=== PATIENT | female | born 1940 | race Caucasian/White ===

== ENCOUNTER 2016-07-03 08:00 | Outpatient (CLI) | payer MEDICARE, MEDICAID | END 2016-07-03 08:01 | disposition home or self-care (01) | DX: L02.219 Cutaneous abscess of trunk, unspecified (principal) ==

== ENCOUNTER 2016-08-06 20:51 | Outpatient (CLI) | payer MEDICARE, MEDICAID | END 2016-08-06 20:52 | disposition EMS.NT | DX: M25.562 Pain in left knee (principal) ==

== ENCOUNTER 2016-08-07 13:56 | Outpatient (CLI) | payer MEDICARE, MEDICAID | END 2016-08-07 13:57 | disposition EMS.NT | DX: Z03.89 Encounter for observation for other suspected diseases and conditions ruled out (principal) ==

== ENCOUNTER 2016-08-23 12:42 | Outpatient (CLI) | payer MEDICARE, MEDICAID | END 2016-08-23 12:43 | disposition critical access hospital (66) | DX: M79.662 Pain in left lower leg (principal); R07.9 Chest pain, unspecified; W10.8XXA Fall (on) (from) other stairs and steps, initial encounter; Y93.01 Activity, walking, marching and hiking; Y92.008 Other place in unspecified non-institutional (private) residence as the place of occurrence of the external cause | CPT/HCPCS: A0425; A0429 ==

== ENCOUNTER 2016-08-23 12:57 | Emergency (ER) | payer MEDICARE, MEDICAID ==
--- NOTE | 2016-08-23 13:17 | ED Physician Documentation ---
PD HPI Fall - Stated complaint Stated Complaint: GLF - Chief complaint Chief Complaint: Ext Problem - History obtained from History obtained from: Patient, EMS - History of Present Illness Mechanism of injury: Slipped (on wet floor) Fall distance: Standing position Where injury occurred: Home Timing - onset: Today Injury(ies) location: Chest (L chest wall), Left Lower Extremity (L knee/tibia) Pain level max: 8 Pain level now: 6 Quality of pain: Pain, Throbbing, Aching, Dull Associated symptoms: No: LOC, AMS, Amnesia, Seizures, Ear drainage, Nasal drainage, Neck pain, Weakness, Paresthesias, Dyspnea, Nausea / vomiting, Hematemesis, Abdominal distension Symptoms improve with: Rest Worsens with: Movement, Palpation Contributing factors: No: Anticoagulated, Intoxicated Similar symptoms before: Has not had sx before Recently seen: Not recently seen Review of Systems Ten Systems: 10 systems reviewed and negative Constitutional: denies: Fever, Chills Ears: denies: Ear pain Nose: denies: Rhinorrhea / runny nose, Congestion Throat: denies: Sore throat Cardiac: denies: Palpitations Respiratory: denies: Cough GI: denies: Abdominal Pain, Nausea, Vomiting, Diarrhea Skin: denies: Rash Musculoskeletal: denies: Neck pain, Back pain Neurologic: denies: Focal weakness, Numbness, Headache, Head injury, LOC PD PAST MEDICAL HISTORY - Past Medical History Past Medical History: Yes Cardiovascular: Atrial fibrillation (paroxysmal) GI: Chronic constipation, Hemorrhoids Psych: Schizophrenia - Past Surgical History Past Surgical History: Yes - Present Medications Home Medications: Ambulatory Orders Medication Instructions Recorded Confirmed Ranitidine HCl 150 mg PO BID 08/14/12 08/23/16 Docusate Sodium [Stool Softener] 250 mg PO DAILY 09/11/12 08/23/16 Ascorbate Calcium [Vitamin C] 1,000 mg PO BID 09/25/12 08/23/16 Ferrous Sulfate [Iron] 325 mg PO TID 09/25/12 08/23/16 Multivitamin [Multivitamins] 1 each PO DAILY 09/25/12 08/23/16 Vitamin E 400 unit PO DAILY 09/25/12 08/23/16 Risperidone Microspheres 37.5 mg IM ONCE 11/20/12 08/23/16 [Risperdal Consta] Lactulose [Kristalose] 20 gm PO ONCE 06/25/13 08/23/16 Cholecalciferol (Vitamin D3) 2,000 unit PO DAILY 03/18/14 08/23/16 [Vitamin D3] Cyanocobalamin (Vitamin B-12) 0 mcg PO DAILY 03/18/14 08/23/16 [Vitamin B-12] Zinc 0 mg PO DAILY 03/18/14 08/23/16 Sulfamethoxazole/Trimethoprim 1 tab PO BID 03/20/16 08/23/16 [Bactrim Ds Tablet] - Allergies Allergies/Adverse Reactions: Allergies Allergy/AdvReac Type Severity Reaction Status Date / Time penicillin G Allergy Intermediate Rash Verified 08/23/16 13:00 strawberry [[place]] Allergy Intermediate Rash Verified 08/23/16 13:00 orange juice [[place] Juice] Allergy Mild Rash Verified 08/23/16 13:00 - Social History Does the pt smoke?: No Smoking Status: Never smoker Does the pt drink ETOH?: No Does the pt have substance abuse?: No - Immunizations Immunizations are current?: No Immunizations: TDAP >10years/unknown PD ED PE NORMAL - Vitals Vital signs reviewed: Yes - General General: Alert and oriented X 3, No acute distress - HEENT HEENT: Atraumatic, PERRL, Moist mucous membranes - Neck Neck: Supple, no meningeal sign - Cardiac Cardiac: Strong equal pulses, Other (irregular) - Respiratory Respiratory: No respiratory distress, Clear bilaterally, Other (mild TTP across the anterior chest wall, no ecchymosis or swelling.) - Abdomen Abdomen: Soft, Non tender, Non distended - Back Back: No spinal TTP - Derm Derm: Warm and dry, No rash - Extremities Extremities: Other (L LE - diffuse TTP about the L knee, most pronounced over the L tibial plateau and prox tibial shaft.) - Neuro Neuro: Alert and oriented X 3 - Psych Psych: Normal mood, Normal affect Results - Vitals Vitals: Vital Signs - 24 hr 08/23/16 08/23/16 12:57 16:17 Temperature 36.8 C Heart Rate 84 107 H Respiratory 18 28 H Rate Blood Pressure 103/75 118/83 H O2 Saturation 98 96 Oxygen O2 Source Room air - EKG (time done) 1310 Rate: Rate (enter#) (115) Rhythm: Atrial fibrillation [place]: Normal QRS: Normal Ischemia: Normal ST segments - Labs Labs: Laboratory Tests 08/23/16 08/23/16 13:45 13:45 WBC 8.3 RBC 4.64 Hgb 12.7 Hct 38.8 MCV 83.5 MCH 27.4 MCHC 32.8 RDW 14.0 Plt Count 242 MPV 8.0 Neut # 6.9 H Lymph # 0.7 L [place] # 0.7 Eos # 0.0 Baso # 0.0 Absolute Nucleated RBC 0.00 Nucleated RBCs 0.0 Sodium 138 Potassium 4.2 Chloride 102 Carbon Dioxide 30 Anion Gap 6.0 BUN 11 Creatinine 0.8 Estimated GFR (MDRD) 70 L Glucose 120 H Calcium 9.0 Total Bilirubin 0.2 AST 20 ALT 22 Alkaline Phosphatase 167 H Total Protein 6.9 Albumin 3.5 Globulin 3.4 Albumin/Globulin Ratio 1.0 Lipase 23 - Rads (name of study) L tib fib xray Radiology: Prelim report reviewed, EMP read contemporaneously, See rad report ( Proximal tibia fracture as separately described, associated with total knee prosthesis. Calcaneus fracture. Severe tarsometatarsal degenerative changes and other chronic findings.) L knee xray Radiology: Prelim report reviewed, EMP read contemporaneously, See rad report ( Acute fracture proximal tibia at the level of the prosthetic tibial component stem with slight impaction, but complete apposition. Possible associated fibular neck fracture.) cxr Radiology: Prelim report reviewed, EMP read contemporaneously, See rad report ( Elevation of left hemidiaphragm. Increased density in the left may be due to overlying soft tissue swelling or artifact. No other definite acute disease. ) PD MEDICAL DECISION MAKING - ED course Complexity details: reviewed results, re-evaluated patient, considered differential, d/w patient, d/w outside sales consultant ED course: 1355 - Dr. Hobson, ortho, and will review films. 1405 - Dr. Hobson recommends transfer to larger facility for joint reconstruction. 1410 - Call placed to [facility] for possible transfer 1650 - Dr. Guillaume (ortho at [facility] graciously accepts). Patient with a left knee periprosthetic fracture. Discussed with orthopedics here who recommends transfer to a larger facility. [facility] recommended [facility], Dr. Guillaume graciously accepts. Pain well controlled here. This document was made in part using voice recognition software. While efforts are made to proofread this document, sound alike and grammatical errors may occur. Patient also has intermittent atrial fibrillation, this is chronic for her, she did have a short episode of A. fib with RVR and was given Cardizem orally for this. Pt states she is not on blood thinners. Departure - Departure Disposition: 02 Transfer Acute Care Hosp Clinical Impression: [place]-prosthetic fracture of proximal tibia Atrial fibrillation Qualifiers: Atrial fibrillation type: unspecified Qualified Code(s): I48.91 - Unspecified atrial fibrillation Condition: Good
[2016-08-23] MEDS ORDERED: HYDROmorphone 1 MG/ML SYRINGE IVP STA ×2 (13:19→17:32)
[2016-08-23] MEDS ORDERED: HYDROmorphone 1 MG/ML SYRINGE ONE ×2 (13:25→17:40)
[2016-08-23 14:03] LABS: BASOPHILS % (AUTO) 0.4 %; EOSINOPHILS % (AUTO) 0.4 %; HCT - HEMATOCRIT 38.8 % (37.0-47.0); HGB - HEMOGLOBIN 12.7 g/dL (12.0-16.0); LYMPHOCYTES # (AUTO) 0.7 10^3/uL (1.5-3.5); LYMPHOCYTES % (AUTO) 7.9 %; MEAN CORPUSCULAR HEMOGLOBIN 27.4 pg (27.0-31.0); MEAN CORPUSCULAR HGB CONC 32.8 g/dL (32.0-36.0); MEAN CORPUSCULAR VOLUME 83.5 fL (81.0-99.0); MONOCYTES # (AUTO) 0.7 10^3/uL (0.0-1.0); NEUTROPHILS # (AUTO) 6.9 10^3/uL (1.5-6.6); NEUTROPHILS % (AUTO) 83.3 %; RED BLOOD COUNT 4.64 10^6/uL (4.20-5.40); UNCORRECTED WHITE BLOOD COUNT 8.3 x10^3/uL; WHITE BLOOD COUNT 8.3 x10^3/uL (4.8-10.8)
[2016-08-23 14:18] LABS: BILIRUBIN,TOTAL 0.2 mg/dL (0.2-1.0); CREATININE 0.8 mg/dL (0.4-1.0); POTASSIUM 4.2 mmol/L (3.5-5.0); TOTAL PROTEIN 6.9 g/dL (6.7-8.2)
--- NOTE | 2016-08-23 14:19 | XRAY Preliminary Report ---
Exam: XR Chest 1 View IMPRESSION: Elevation of left hemidiaphragm. Increased density in the left may be due to overlying so ft tissue swelling or artifact. No other definite acute disease. [facility] SITE ID: [id number]
--- NOTE | 2016-08-23 14:21 | XRAY Report ---
EXAM: CHEST RADIOGRAPHY EXAM DATE: 08/23/2016 01:56 PM. CLINICAL HISTORY: Chest pain s/p fall. COMPARISON: 08/25/2006. TECHNIQUE: 1 view. FINDINGS: Lungs/Pleura: Apparent elevation of left hemidiaphragm. Otherwise clear. No definite effusion or pneu mothorax. Mediastinum: Overall heart size upper limit of normal, probably unchanged. Upper lobe vessels not dis tended. Other: Scoliosis, degenerative changes, rotator cuff arthropathy. Increased density over left lateral chest wall appears related to soft tissues. IMPRESSION: Elevation of left hemidiaphragm. Increased density in the left may be due to overlying so ft tissue swelling or artifact. No other definite acute disease. [facility] Referring Provider Line: [phone] SITE ID: [id number]
--- NOTE | 2016-08-23 14:21 | XRAY Preliminary Report ---
Exam: XR Knee 2 View LT IMPRESSION: Acute fracture of proximal tibia at level of prosthetic tibial component stem with slight impaction, but complete apposition. Possible associated fibular neck fracture. [facility] SITE ID: [id number]
--- NOTE | 2016-08-23 14:24 | XRAY Report ---
EXAM: LEFT KNEE RADIOGRAPHY EXAM DATE: 08/23/2016 02:01 PM. CLINICAL HISTORY: Fall, L knee pain. COMPARISON: None. TECHNIQUE: 2 views. FINDINGS: Bones: Osteopenia. Transverse fracture of proximal tibia with slight impaction resulting in apex medi al angulation. Complete apposition. Probable nondisplaced fracture fibular neck. Otherwise unremarkab le. Joints: Total knee prosthesis in grossly anatomic alignment. Fracture is at the tip of the tibial com ponent stem. Soft Tissues: Unremarkable. IMPRESSION: Acute fracture of proximal tibia at level of prosthetic tibial component stem with slight impaction, but complete apposition. Possible associated fibular neck fracture. [facility] Referring Provider Line: [phone] SITE ID: [id number]
--- NOTE | 2016-08-23 14:25 | XRAY Preliminary Report ---
Exam: XR Tib/Fib LT IMPRESSION: 1. Proximal tibia fracture as separately described, associated with total knee prosthesis. 2. Calcaneus fracture. 3. Severe tarsometatarsal degenerative changes and other chronic findings. [facility] SITE ID: [id number]
--- NOTE | 2016-08-23 14:27 | XRAY Report ---
EXAM: LEFT TIBIA/FIBULA RADIOGRAPHY EXAM DATE: 08/23/2016 01:56 PM. CLINICAL HISTORY: Fall, L prox tibia pain. COMPARISON: None. TECHNIQUE: 2 views. FINDINGS: Bones: Osteopenia. See separate report for findings of nondisplaced proximal tibia fracture. Irregula rities in the calcaneus compatible with insufficiency fracture posteriorly. No other definite fractur e or bone lesion. Joints: Total knee prosthesis. Mortise difficult to evaluate, prominent degenerative changes in the a nkle. Severe degenerative changes throughout the tarsal metatarsal joints with possible erosions vers us subchondral cysts. Soft Tissues: Unremarkable. IMPRESSION: 1. Proximal tibia fracture as separately described, associated with total knee prosthesis. 2. Calcaneus fracture. 3. Severe tarsometatarsal degenerative changes and other chronic findings. [facility] Referring Provider Line: [phone] SITE ID: [id number]
[2016-08-23] MEDS ORDERED: diltiaZEM 30 MG TABLET PO STA (17:35)
[2016-08-23] MEDS ORDERED: diltiaZEM 30 MG TABLET PO ONE (17:39)
[2016-08-23 18:22] VITALS: BP 107/63
== END 2016-08-23 19:20 | disposition short-term general hospital (02) ==
LOC: EDUNIT# → ED 12:57
DX: S82.192A Other fracture of upper end of left tibia, initial encounter for closed fracture (principal); M97.12XA Periprosthetic fracture around internal prosthetic left knee joint, initial encounter; W01.0XXA Fall on same level from slipping, tripping and stumbling without subsequent striking against object, initial encounter; Y92.009 Unspecified place in unspecified non-institutional (private) residence as the place of occurrence of the external cause; Z96.652 Presence of left artificial knee joint; I48.2 Chronic atrial fibrillation
CPT/HCPCS: 36415; 71010; 73560; 73590; 80053; 83690; 85025; 93005; 93010; 96374; 96376; 99284; 99285; A9270; J1170

== ENCOUNTER 2016-08-23 19:21 | Outpatient (CLI) | payer MEDICARE, MEDICAID | END 2016-08-23 19:22 | disposition short-term general hospital (02) | DX: S82.102A Unspecified fracture of upper end of left tibia, initial encounter for closed fracture (principal); M97.12XA Periprosthetic fracture around internal prosthetic left knee joint, initial encounter; R07.89 Other chest pain; W01.0XXA Fall on same level from slipping, tripping and stumbling without subsequent striking against object, initial encounter; Y92.009 Unspecified place in unspecified non-institutional (private) residence as the place of occurrence of the external cause | CPT/HCPCS: A0170; A0425; A0426 ==

== ENCOUNTER 2016-09-06 12:14 | Outpatient (CLI) | payer MEDICARE, MEDICAID | END 2016-09-06 12:15 | disposition critical access hospital (66) | LOC: EMS 12:14 | PROVIDERS: ATTEND Surgery | DX: R06.02 Shortness of breath (principal) | CPT/HCPCS: A0425; A0429 ==

== ENCOUNTER 2016-09-06 12:19 | Emergency (ER) | payer MEDICARE, MEDICAID ==
[2016-09-06] MEDS ORDERED: diltiaZEM INJ 5 MG/ML VIAL IVP STA (12:55)
--- NOTE | 2016-09-06 12:59 | ED Physician Documentation ---
History of Present Illness - Stated complaint Stated Complaint: SOA - Chief complaint Chief Complaint: Cardiac - History obtained from History obtained from: Patient, EMS - History of Present Illness Timing: Today - Additonal information Additional information: 75 y/o female with a history of intermittent afib has been operated on 2 weeks ago at [place] for a fracture around a left knee prosthesis. She has been in [facility] for about one week now. She began to feel hot and muggy last night and today when she was trying to get up to get a shower she was dyspneic and light headed. Review of Systems Constitutional: reports: Fatigue, Sweats. denies: Fever, Chills Eyes: denies: Decreased vision Ears: denies: Ear pain Nose: denies: Congestion Throat: denies: Sore throat Cardiac: reports: Palpitations. denies: Chest pain / pressure Respiratory: reports: Dyspnea. denies: Cough GI: reports: Nausea. denies: Abdominal Pain, Vomiting : denies: Dysuria, Frequency Skin: denies: Rash Musculoskeletal: reports: Extremity pain, Extremity swelling, Joint swelling. denies: Neck pain, Back pain Neurologic: reports: Generalized weakness. denies: Focal weakness, Numbness PD PAST MEDICAL HISTORY - Past Medical History Past Medical History: Yes Cardiovascular: Atrial fibrillation GI: Chronic constipation, Hemorrhoids Psych: Schizophrenia Other Past Medical History: rectal prolapse, osteomyelitis of ankle and foot. - Past Surgical History Past Surgical History: Yes - Present Medications Home Medications: Ambulatory Orders Medication Instructions Recorded Confirmed Ranitidine HCl 150 mg PO BID 08/14/12 09/06/16 Docusate Sodium [Stool Softener] 250 mg PO BID 09/11/12 09/06/16 Ferrous Sulfate [Iron] 325 mg PO TID 09/25/12 09/06/16 Multivitamin [Multivitamins] 1 each PO DAILY 09/25/12 09/06/16 Vitamin E 400 unit PO DAILY 09/25/12 09/06/16 Risperidone Microspheres 37.5 mg IM ONCE 11/20/12 09/06/16 [Risperdal Consta] Lactulose [Kristalose] 20 gm PO PRN PRN MDD bid 06/25/13 09/06/16 Cholecalciferol (Vitamin D3) 2,000 unit PO DAILY 03/18/14 09/06/16 [Vitamin D3] Cyanocobalamin (Vitamin B-12) 1,000 mcg PO DAILY 03/18/14 09/06/16 [Vitamin B-12] Zinc 0 mg PO DAILY 03/18/14 09/06/16 Acetaminophen 1,000 mg PO Q8H 09/06/16 09/06/16 Apixaban [Eliquis] 5 mg PO BID 09/06/16 09/06/16 Ascorbic Acid [Vitamin C] 1,000 mg PO BID 09/06/16 09/06/16 Diltiazem HCl [Diltiazem ER] 180 mg PO DAILY 09/06/16 09/06/16 Doxycycline Hyclate 100 mg PO BID 09/06/16 09/06/16 Folic Acid 0.4 mg PO DAILY 09/06/16 09/06/16 Guaifenesin 100 mg PO DAILY 09/06/16 09/06/16 Levofloxacin [Levaquin] 500 mg PO DAILY #7 tablet 09/06/16 Metoprolol Tartrate 12.5 mg PO BID 09/06/16 09/06/16 Oxycodone HCl 5 mg PO PRN PRN MDD qid 09/06/16 09/06/16 Oxycodone HCl 10 mg PO Q4H PRN 09/06/16 09/06/16 Tramadol HCl 50 mg PO Q6H PRN 09/06/16 09/06/16 - Allergies Allergies/Adverse Reactions: Allergies Allergy/AdvReac Type Severity Reaction Status Date / Time penicillin G Allergy Intermediate Rash Verified 08/23/16 13:00 strawberry [[place]] Allergy Intermediate Rash Verified 08/23/16 13:00 orange juice [[place] Juice] Allergy Mild Rash Verified 08/23/16 13:00 - Social History Does the pt smoke?: No Smoking Status: Never smoker Does the pt drink ETOH?: No Does the pt have substance abuse?: No - Immunizations Immunizations are current?: No Immunizations: TDAP >10years/unknown PD ED PE NORMAL - Vitals Vital signs reviewed: Yes (hypertensive and tachy ) - General General: No acute distress, Well developed/nourished, Other (75 y/o edentulous female appears "worn out" ) - HEENT HEENT: Atraumatic, PERRL - Neck Neck: Supple, no meningeal sign - Cardiac Cardiac: Other (irregularly irregular and tachy ) - Respiratory Respiratory: No respiratory distress, Clear bilaterally - Abdomen Abdomen: Soft, Non tender - Derm Derm: Normal color, Warm and dry - Extremities Extremities: Other (There is a wound vac present on the left knee and the wound is dressed. There is swelling to the left leg with pitting edema and there is some surrounding erythema. The area is not particularly tender. The distal N/V is intact. The wound vac is removed and the dressing taken down to reveal a dry appearing wound that appears to be healing well. ) - Neuro Neuro: No motor deficit, No sensory deficit - Psych Psych: Normal mood, Normal affect Results - Vitals Vitals: Vital Signs - 24 hr 09/06/16 09/06/16 09/06/16 12:22 12:31 13:33 Temperature 36.8 C Heart Rate 112 H 131 H 94 Respiratory 20 16 18 Rate Blood Pressure 118/83 H 111/63 O2 Saturation 96 97 98 Oxygen O2 Source Room air - EKG (time done) 1234 Rate: Rate (enter#) (113) Rhythm: Atrial fibrillation Other comments: Other comments (early transition) Compare to prior EKG: Unchanged from prior EKG (08-23-16) Computer interpretation: Agree with computer - Labs Labs: Laboratory Tests 09/06/16 09/06/16 09/06/16 12:30 12:30 12:30 WBC 9.8 RBC 3.19 L Hgb 8.6 L Hct 26.3 L MCV 82.5 MCH 26.9 L MCHC 32.5 RDW 13.5 Plt Count 438 MPV 7.2 L Neut # 7.7 H Lymph # 0.8 L [place] # 0.9 Eos # 0.2 Baso # 0.2 H Absolute Nucleated RBC 0.00 Nucleated RBCs 0.0 Manual Slide Review Indicated Platelet Estimate NORMAL (130-450,000) Platelet Morphology NORMAL APPEARANCE RBC Morph Micro Appear 1+ HYPOCHROMASIA Sodium 137 Potassium 4.0 Chloride 98 L Carbon Dioxide 33 H Anion Gap 6.0 BUN 10 Creatinine 0.3 L Estimated GFR (MDRD) 218 Glucose 112 H Calcium 8.6 Total Bilirubin 0.3 AST 24 ALT 38 Alkaline Phosphatase 312 H Troponin I < 0.04 B-Natriuretic Peptide Total Protein 6.3 L Albumin 2.3 L Globulin 4.0 Albumin/Globulin Ratio 0.6 L Lipase 11 L Urine Color Urine Clarity Urine pH Ur Specific [place] Urine Protein Urine Glucose (UA) Urine Ketones Urine Occult Blood Urine Nitrite Urine Bilirubin Urine Urobilinogen Ur Leukocyte Esterase Urine RBC Urine WBC Ur Squamous Epith Cells Urine Bacteria Ur Microscopic Review Urine Culture Comments 09/06/16 09/06/16 12:30 12:48 WBC RBC Hgb Hct MCV MCH MCHC RDW Plt Count MPV Neut # Lymph # [place] # Eos # Baso # Absolute Nucleated RBC Nucleated RBCs Manual Slide Review Platelet Estimate Platelet Morphology RBC Morph Micro Appear Sodium Potassium Chloride Carbon Dioxide Anion Gap BUN Creatinine Estimated GFR (MDRD) Glucose Calcium Total Bilirubin AST ALT Alkaline Phosphatase Troponin I B-Natriuretic Peptide 409 H Total Protein Albumin Globulin Albumin/Globulin Ratio Lipase Urine Color YELLOW Urine Clarity CLEAR Urine pH 7.0 Ur Specific [place] <=1.005 Urine Protein NEGATIVE Urine Glucose (UA) NEGATIVE Urine Ketones NEGATIVE Urine Occult Blood NEGATIVE Urine Nitrite NEGATIVE Urine Bilirubin NEGATIVE Urine Urobilinogen 0.2 (NORMAL) Ur Leukocyte Esterase TRACE H Urine RBC None Seen Urine WBC 6-10 H Ur Squamous Epith Cells RARE Squamous Urine Bacteria Rare Ur Microscopic Review INDICATED Urine Culture Comments INDICATED - Rads (name of study) 2 view chest Radiology: Prelim report reviewed (Impression: Acute on chronic lung disease consistent small left posterior lung base infiltrate.), EMP read indepedently, See rad report PD MEDICAL DECISION MAKING - ED course Complexity details: reviewed old records, reviewed results, re-evaluated patient , considered differential, d/w patient ED course: 75 y/o female with recent jocelyne-prosthetic fracture and repair has a history of intermittent afib and she is on eloquis now. She has afib with RVR today and she has improvement in her rate with 20mg of diltazem and her symptoms improve. Her wound appears to be healing well and she appears to have UTI and an infiltrate in the left lung base that is the assumed precipitant of the rapid afib. She is on doxy her wound appears well and she is given rocephin in the ED and we will put her on a week of levaquin for the urine and chest. I do not feel she needs to be hospitalized today. Departure - Departure Disposition: 01 Home, Self Care Clinical Impression: Atrial fibrillation with RVR Urinary tract infection Qualifiers: Urinary tract infection type: acute cystitis Hematuria presence: without hematuria Qualified Code(s): N30.00 - Acute cystitis without hematuria Condition: Stable Instructions: ED UTI Cystitis Female, ED Afib Follow-Up: Veronique Sutton ARNP [Primary Care Provider] - Prescriptions: Levofloxacin [Levaquin] 500 mg PO DAILY #7 tablet
[2016-09-06] MEDS ORDERED: diltiaZEM INJ 5 MG/ML VIAL ONE (13:00)
[2016-09-06 13:04] LABS: BASOPHILS # (AUTO) 0.2 10^3/uL (0.0-0.1); BASOPHILS % (AUTO) 1.9 %; EOSINOPHILS # (AUTO) 0.2 10^3/uL (0.0-0.7); EOSINOPHILS % (AUTO) 2.2 %; HCT - HEMATOCRIT 26.3 % (37.0-47.0); HGB - HEMOGLOBIN 8.6 g/dL (12.0-16.0); LYMPHOCYTES # (AUTO) 0.8 10^3/uL (1.5-3.5); LYMPHOCYTES % (AUTO) 8.3 %; MEAN CORPUSCULAR HEMOGLOBIN 26.9 pg (27.0-31.0); MEAN CORPUSCULAR HGB CONC 32.5 g/dL (32.0-36.0); MEAN CORPUSCULAR VOLUME 82.5 fL (81.0-99.0); MEAN PLATELET VOLUME 7.2 fL (7.9-10.8); MONOCYTES # (AUTO) 0.9 10^3/uL (0.0-1.0); MONOCYTES % (AUTO) 8.7 %; NEUTROPHILS # (AUTO) 7.7 10^3/uL (1.5-6.6); NEUTROPHILS % (AUTO) 78.9 %; RED BLOOD COUNT 3.19 10^6/uL (4.20-5.40); RED CELL DISTRIBUTION WIDTH 13.5 % (12.0-15.0); UNCORRECTED WHITE BLOOD COUNT 9.8 x10^3/uL; WHITE BLOOD COUNT 9.8 x10^3/uL (4.8-10.8)
[2016-09-06 13:13] LABS: ALBUMIN/GLOBULIN RATIO 0.6 (1.0-2.2); BILIRUBIN,TOTAL 0.3 mg/dL (0.2-1.0); CALCIUM 8.6 mg/dL (8.5-10.3); CREATININE 0.3 mg/dL (0.4-1.0); TOTAL PROTEIN 6.3 g/dL (6.7-8.2)
[2016-09-06 13:18] LABS: BILIRUBIN,URINE NEGATIVE (NEGATIVE)
[2016-09-06 13:23] LABS: UA w/ MICROSCOPIC CHARGE YES
[2016-09-06 13:26] LABS: UR CULTURE IF IND INDICATED
[2016-09-06 13:29] LABS: PLATELET ESTIMATE, MANUAL NORMAL (130-450,000) (NORMAL); PLATELET MORPHOLOGY NORMAL APPEARANCE (NORMAL)
[2016-09-06] MEDS ORDERED: MAG HYDROX/AL HYDROX/SIMETH 30 ML UDC ONE (13:38)
[2016-09-06] MEDS ORDERED: MAG HYDROX/AL HYDROX/SIMETH 30 ML UDC PO STA (13:42)
[2016-09-06] MEDS ORDERED: oxyCODONE 5 MG TABLET PO STA (14:38)
[2016-09-06] MEDS ORDERED: cefTRIAXone 1 GM in SODIUM CHLORIDE 0.9% MINIBAG 100 ML IV STA (14:39)
--- NOTE | 2016-09-06 14:40 | XRAY Preliminary Report ---
Exam: XR Chest 2 View PA/LAT IMPRESSION: Acute on chronic lung disease consisting of a small left posterior lung base infiltrate [facility] SITE ID: [id number]
[2016-09-06] MEDS ORDERED: cefTRIAXone 1 GM VIAL ONE (14:42)
[2016-09-06] MEDS ORDERED: oxyCODONE 5 MG TABLET ONE (14:42)
--- NOTE | 2016-09-06 14:54 | XRAY Report ---
EXAM: CHEST RADIOGRAPHY EXAM DATE: 09/06/2016 02:04 PM. CLINICAL HISTORY: Dyspnea/tachycardia. Fall 5 days ago. COMPARISON: 08/23/2016. TECHNIQUE: 2 views. FINDINGS: Lungs/Pleura: Overexpanded. New small interstitial infiltrate left posterior lung base. Right lung is clear. No vascular congestion and pneumothorax. Mediastinum: Eventration left hemidiaphragm. Small hiatal hernia. Heart is of normal caliber. No mary opathy. Other: Chronic right rotator cuff tear. IMPRESSION: Acute on chronic lung disease consisting of a small left posterior lung base infiltrate. [facility] Referring Provider Line: [phone] SITE ID: [id number]
[2016-09-06 16:37] VITALS: BP 126/60
== END 2016-09-06 16:36 | disposition home or self-care (01) ==
LOC: EDUNIT# → SUPCPDRO 12:19 → ED 12:19
DX: I48.91 Unspecified atrial fibrillation (principal); N30.00 Acute cystitis without hematuria
CPT/HCPCS: 36415; 71020; 80053; 81001; 83690; 83880; 84484; 85025; 87040; 87086; 93005; 93010; 96374; 96375; 99284; 99285; A9270; 81003

== ENCOUNTER 2016-09-09 17:10 | Outpatient (CLI) | payer MEDICAID, MEDICARE, OTHER ==
[2016-09-09 17:31] LABS: BASOPHILS # (AUTO) 0.1 10^3/uL (0.0-0.1); BASOPHILS % (AUTO) 0.4 %; EOSINOPHILS % (AUTO) 0.3 %; HCT - HEMATOCRIT 26.8 % (37.0-47.0); HGB - HEMOGLOBIN 8.8 g/dL (12.0-16.0); LYMPHOCYTES # (AUTO) 0.6 10^3/uL (1.5-3.5); LYMPHOCYTES % (AUTO) 4.6 %; MEAN CORPUSCULAR HEMOGLOBIN 26.8 pg (27.0-31.0); MEAN CORPUSCULAR HGB CONC 32.7 g/dL (32.0-36.0); MEAN CORPUSCULAR VOLUME 81.8 fL (81.0-99.0); MEAN PLATELET VOLUME 7.2 fL (7.9-10.8); MONOCYTES # (AUTO) 0.8 10^3/uL (0.0-1.0); MONOCYTES % (AUTO) 5.9 %; NEUTROPHILS # (AUTO) 11.5 10^3/uL (1.5-6.6); NEUTROPHILS % (AUTO) 88.8 %; RED BLOOD COUNT 3.27 10^6/uL (4.20-5.40)
== END 2016-09-09 17:11 | disposition home or self-care (01) ==
LOC: LAB.R 17:10
DX: D64.9 Anemia, unspecified (principal)
CPT/HCPCS: 85025

== ENCOUNTER 2016-09-11 16:53 | Outpatient (CLI) | payer MEDICAID, MEDICARE, OTHER | END 2016-09-11 16:54 | disposition home or self-care (01) | LOC: LAB.R 16:53 | PROVIDERS: ATTEND Internal Medicine | DX: S91.302A Unspecified open wound, left foot, initial encounter (principal) | CPT/HCPCS: 87070; 87205 ==

== ENCOUNTER 2016-09-18 08:45 | Outpatient (CLI) | payer MEDICAID, MEDICARE, OTHER ==
[2016-09-18 09:58] LABS: BASOPHILS % (AUTO) 0.6 %; EOSINOPHILS # (AUTO) 0.1 10^3/uL (0.0-0.7); EOSINOPHILS % (AUTO) 1.7 %; HCT - HEMATOCRIT 32.5 % (37.0-47.0); HGB - HEMOGLOBIN 10.4 g/dL (12.0-16.0); LYMPHOCYTES # (AUTO) 1.1 10^3/uL (1.5-3.5); LYMPHOCYTES % (AUTO) 15.6 %; MEAN CORPUSCULAR HEMOGLOBIN 26.4 pg (27.0-31.0); MEAN CORPUSCULAR HGB CONC 32.1 g/dL (32.0-36.0); MEAN CORPUSCULAR VOLUME 82.1 fL (81.0-99.0); MEAN PLATELET VOLUME 6.8 fL (7.9-10.8); MONOCYTES # (AUTO) 0.6 10^3/uL (0.0-1.0); MONOCYTES % (AUTO) 8.7 %; NEUTROPHILS # (AUTO) 5.4 10^3/uL (1.5-6.6); NEUTROPHILS % (AUTO) 73.4 %; RED BLOOD COUNT 3.96 10^6/uL (4.20-5.40); RED CELL DISTRIBUTION WIDTH 15.3 % (12.0-15.0); UNCORRECTED WHITE BLOOD COUNT 7.3 x10^3/uL; WHITE BLOOD COUNT 7.3 x10^3/uL (4.8-10.8)
== END 2016-09-18 08:46 | disposition home or self-care (01) ==
LOC: LAB.R 08:45
DX: I50.9 Heart failure, unspecified (principal); S82.102D Unspecified fracture of upper end of left tibia, subsequent encounter for closed fracture with routine healing
CPT/HCPCS: 83880; 85025

== ENCOUNTER 2017-04-12 11:14 | Outpatient (CLI) | payer MEDICARE, MEDICAID ==
[2017-04-12 13:03] LABS: BASOPHILS % (AUTO) 0.5 %; EOSINOPHILS # (AUTO) 0.1 10^3/uL (0.0-0.7); EOSINOPHILS % (AUTO) 1.1 %; LYMPHOCYTES # (AUTO) 1.5 10^3/uL (1.5-3.5); LYMPHOCYTES % (AUTO) 23.8 %; MEAN CORPUSCULAR HEMOGLOBIN 28.4 pg (27.0-31.0); MEAN CORPUSCULAR HGB CONC 32.8 g/dL (32.0-36.0); MEAN CORPUSCULAR VOLUME 86.5 fL (81.0-99.0); MEAN PLATELET VOLUME 8.8 fL (7.9-10.8); MONOCYTES # (AUTO) 0.7 10^3/uL (0.0-1.0); MONOCYTES % (AUTO) 10.9 %; NEUTROPHILS # (AUTO) 4.1 10^3/uL (1.5-6.6); NEUTROPHILS % (AUTO) 63.7 %; PLT - PLATELET COUNT 228 10^3/uL (130-450); RED BLOOD COUNT 4.94 10^6/uL (4.20-5.40); RED CELL DISTRIBUTION WIDTH 14.8 % (12.0-15.0); WHITE BLOOD COUNT 6.5 x10^3/uL (4.8-10.8)
[2017-04-12 13:09] LABS: ALBUMIN 3.8 g/dL (3.2-5.5); ALBUMIN/GLOBULIN RATIO 1.1 (1.0-2.2); ALKALINE PHOSPHATASE 133 IU/L (42-121); ALT ALANINE AMINOTRANSFERASE 30 IU/L (10-60); AST ASPARTATE AMINOTRANSFERASE 28 IU/L (10-42); BILIRUBIN,TOTAL 0.5 mg/dL (0.2-1.0); BUN - BLOOD UREA NITROGEN 10 mg/dL (6-20); CALCIUM 9.1 mg/dL (8.5-10.3); CARBON DIOXIDE - CO2 35 mmol/L (21-32); CHLORIDE 97 mmol/L (101-111); CHOL/HDL RATIO 2.3 (<4.4); CHOLESTEROL 145 mg/dL; CREATININE 0.5 mg/dL (0.4-1.0); GFR - MDRD 121 (>89); GLUCOSE 106 mg/dL (70-100); HDL CHOLESTEROL 63 mg/dL; LDL CHOLESTEROL,CALCULATED 66 mg/dL; SODIUM 138 mmol/L (135-145); TOTAL PROTEIN 7.3 g/dL (6.7-8.2); VLDL CHOLESTEROL 16 mg/dL
== END 2017-04-12 11:15 | disposition home or self-care (01) ==
LOC: LAB.N 11:14
PROVIDERS: ATTEND Nurse Practitioner Gerontology
DX: I10 Essential (primary) hypertension (principal); D50.9 Iron deficiency anemia, unspecified
CPT/HCPCS: 36415; 80053; 80061; 85025

== ENCOUNTER 2017-05-29 04:11 | Outpatient (CLI) | payer MEDICARE, MEDICAID | END 2017-05-29 04:12 | disposition EMS.NT | LOC: EMS 04:11 | PROVIDERS: ATTEND Surgery | DX: R07.9 Chest pain, unspecified (principal) ==

== ENCOUNTER 2017-07-30 19:22 | Outpatient (CLI) | payer MEDICARE, MEDICAID | END 2017-07-30 19:23 | disposition critical access hospital (66) | LOC: EMS 19:22 | PROVIDERS: ATTEND Surgery | DX: R06.00 Dyspnea, unspecified (principal); R63.5 Abnormal weight gain | CPT/HCPCS: A0425; A0429 ==

== ENCOUNTER 2017-07-30 19:58 | Emergency (ER) | payer MEDICARE, MEDICAID ==
--- NOTE | 2017-07-30 20:40 | ED Physician Documentation ---
History of Present Illness - Stated complaint Stated Complaint: EDEMA, SOA, WEIGHT GAIN - Chief complaint Chief Complaint: General - History obtained from History obtained from: Patient, EMS - History of Present Illness Timing: Unknown - Additonal information Additional information: 76-year-old schizophrenic female living alone with a caregiver has developed "spells "in her lower abdomen that caused her to be short of breath and have periodic waves of pain. She has this happen several times per day. She is a poor historian and was picked up from her home that apparently is filled with cats and rats. She has some swelling in the right lower extremity which she indicates is been present since February of last year. She has a history of atrial fibrillation and congestive heart failure and she indicates that she is taking some diltiazem and metoprolol as well as some ranitidine. She denies taking Eliquis. She denies being on a blood thinner.She has a chronically draining periumbilical wound which he states is no different than usual for her. When she called the ambulance she thought she might be as she was having these rhythmic contractions in her abdomen and she has gained weight. Review of Systems Constitutional: reports: Sweats. denies: Fever Ears: denies: Ear pain Nose: denies: Rhinorrhea / runny nose, Congestion Throat: denies: Sore throat Cardiac: reports: Chest pain / pressure, Palpitations, Pedal edema Respiratory: reports: Dyspnea. denies: Cough, Wheezing GI: reports: Abdominal Pain. denies: Nausea, Vomiting, Constipation, Diarrhea : denies: Dysuria, Frequency Musculoskeletal: reports: Extremity swelling. denies: Neck pain Neurologic: denies: Generalized weakness, Focal weakness, Numbness PD PAST MEDICAL HISTORY - Past Medical History Cardiovascular: Hypertension, Atrial fibrillation GI: Chronic constipation, Hemorrhoids Psych: Schizophrenia - Past Surgical History Past Surgical History: Yes - Present Medications Home Medications: Ambulatory Orders Medication Instructions Recorded Confirmed raNITIdine HCl [Ranitidine HCl] 150 mg PO BID 08/14/12 07/25/17 Docusate Sodium [Stool Softener] 250 mg PO BID 09/11/12 07/25/17 Ferrous Sulfate [Iron] 325 mg PO TID 09/25/12 07/25/17 Multivitamin [Multivitamins] 1 each PO DAILY 09/25/12 07/25/17 Vitamin E 400 unit PO DAILY 09/25/12 07/25/17 Risperidone Microspheres 37.5 mg IM ONCE 11/20/12 07/25/17 [Risperdal Consta] Lactulose [Kristalose] 20 gm PO PRN PRN MDD bid 06/25/13 07/25/17 Cholecalciferol (Vitamin D3) 2,000 unit PO DAILY 03/18/14 07/25/17 [Vitamin D3] Cyanocobalamin (Vitamin B-12) 1,000 mcg PO DAILY 03/18/14 07/25/17 [Vitamin B-12] Zinc 0 mg PO DAILY 03/18/14 07/25/17 Acetaminophen 1,000 mg PO Q8H 09/06/16 07/25/17 Apixaban [Eliquis] 5 mg PO BID 09/06/16 07/25/17 Ascorbic Acid [Vitamin C] 1,000 mg PO BID 09/06/16 07/25/17 Diltiazem HCl [Diltiazem ER] 180 mg PO DAILY 09/06/16 07/25/17 Metoprolol Tartrate 12.5 mg PO BID 09/06/16 07/25/17 guaiFENesin [Guaifenesin] 100 mg PO DAILY 09/06/16 07/25/17 Ciprofloxacin HCl [Cipro] 500 mg PO BID #20 tablet 07/31/17 Furosemide [Lasix] 40 mg PO DAILY #30 tablet 07/31/17 Potassium Chloride 20 meq PO DAILY #30 tablet.er 07/31/17 - Allergies Allergies/Adverse Reactions: Allergies Allergy/AdvReac Type Severity Reaction Status Date / Time penicillin G Allergy Intermediate Anaphylaxis Verified 07/30/17 20:11 strawberry [[place]] Allergy Intermediate Rash Verified 07/30/17 20:11 orange juice [[place]ice] Allergy Mild Rash Verified 07/30/17 20:11 - Social History Does the pt smoke?: No Smoking Status: Never smoker Does the pt drink ETOH?: No Does the pt have substance abuse?: No - Immunizations Immunizations are current?: No Immunizations: TDAP >10years/unknown PD ED PE NORMAL - Vitals Vital signs reviewed: Yes (Hypertensive mild) - General General: No acute distress, Well developed/nourished, Other (And unkempt 76-year -old female with a foul smell to the room on entering. Does not appear to be in distress.) - HEENT HEENT: Atraumatic, PERRL, EOMI - Neck Neck: Supple, no meningeal sign, No bony TTP - Cardiac Cardiac: Other (Irregularly irregular rate and rhythm with 2 out of 6 holosystolic murmur) - Respiratory Respiratory: No respiratory distress, Clear bilaterally - Abdomen Abdomen: Other (The abdomen is distended and in the central portion of the abdomen where the umbilicus would normally be there is a wound that does not appear to be fully healed this does appear to be the source of the foul smell and the area is draining with surrounding erythema the abdomen itself is not particularly tender.) - Back Back: No CVA TTP, No spinal TTP - Derm Derm: Normal color, Warm and dry - Extremities Extremities: Other (There is marked swelling of the right lower extremity especially to the calf with 4+ pitting edema the left lower extremity has some pitting edema as well much less than the right. The area of the prior surgery to the left knee appears to be well-healed. There is no sign of inflammation on the left leg.) - Neuro Neuro: No motor deficit, No sensory deficit, Normal speech, Other (The patient does exhibit delusions and loosening of the thought process.) Eye Opening: Spontaneous Motor: Obeys Commands Verbal: Confused GCS Score: 14 - Psych Psych: Normal mood, Normal affect Results - Vitals Vitals: Vital Signs - 24 hr 07/30/17 07/30/17 07/31/17 20:00 23:11 00:28 Temperature 36.5 C Heart Rate 78 100 87 Respiratory 20 29 H 20 Rate Blood Pressure 110/95 H 154/81 H 153/103 H O2 Saturation 95 94 07/31/17 07/31/17 07/31/17 01:25 02:06 03:29 Temperature Heart Rate 95 97 71 Respiratory 22 22 18 Rate Blood Pressure 157/87 H 140/78 H 154/56 H O2 Saturation 96 95 94 07/31/17 07/31/17 05:36 06:31 Temperature Heart Rate 100 91 Respiratory 17 19 Rate Blood Pressure 130/88 H 108/62 O2 Saturation 97 97 Oxygen O2 Source Room air - Labs Labs: Microbiology 07/30/17 21:30 Wound Culture - Preliminary Abdomen Laboratory Tests 07/30/17 07/30/17 07/30/17 20:21 20:21 20:21 WBC 5.5 RBC 4.66 Hgb 13.2 Hct 40.8 MCV 87.5 MCH 28.3 MCHC 32.4 RDW 14.4 Plt Count 205 MPV 8.3 Neut # 4.0 Lymph # 0.8 L [place] # 0.6 Eos # 0.1 Baso # 0.0 Absolute Nucleated RBC 0.00 Nucleated RBC % 0.0 Sodium 135 Potassium 3.7 Chloride 97 L Carbon Dioxide 33 H Anion Gap 5.0 L BUN 6 Creatinine 0.4 Estimated GFR (MDRD) 156 Glucose 122 H Lactic Acid Calcium 8.9 Total Bilirubin 0.3 AST 22 ALT 21 Alkaline Phosphatase 126 H Troponin I < 0.04 B-Natriuretic Peptide Total Protein 7.1 Albumin 3.7 Globulin 3.4 Albumin/Globulin Ratio 1.1 Lipase 13 L Urine Color Urine Clarity Urine pH Ur Specific [place] Urine Protein Urine Glucose (UA) Urine Ketones Urine Occult Blood Urine Nitrite Urine Bilirubin Urine Urobilinogen Ur Leukocyte Esterase Ur Microscopic Review Urine Culture Comments 07/30/17 07/30/17 07/30/17 20:21 20:45 21:56 WBC RBC Hgb Hct MCV MCH MCHC RDW Plt Count MPV Neut # Lymph # [place] # Eos # Baso # Absolute Nucleated RBC Nucleated RBC % Sodium Potassium Chloride Carbon Dioxide Anion Gap BUN Creatinine Estimated GFR (MDRD) Glucose Lactic Acid 1.2 Calcium Total Bilirubin AST ALT Alkaline Phosphatase Troponin I B-Natriuretic Peptide 594 H Total Protein Albumin Globulin Albumin/Globulin Ratio Lipase Urine Color LT. YELLOW Urine Clarity CLEAR Urine pH 6.0 Ur Specific [place] <=1.005 Urine Protein NEGATIVE Urine Glucose (UA) NEGATIVE Urine Ketones NEGATIVE Urine Occult Blood NEGATIVE Urine Nitrite NEGATIVE Urine Bilirubin NEGATIVE Urine Urobilinogen 0.2 (NORMAL) Ur Leukocyte Esterase NEGATIVE Ur Microscopic Review NOT INDICATED Urine Culture Comments NOT INDICATED - Rads (name of study) CT chest angio Radiology: Prelim report reviewed, EMP read indepedently, See rad report CT ab/pel with Radiology: Prelim report reviewed (Impression: 1. Enlarging periumbilical wound overlying the surgical mesh. 2. Ventral hernia to the left of the open wound containing unremarkable large bowel. 3. Moderate hiatal hernia. 4.Gallstone. 5. 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 She has shortness of breath here with exertion and a markedly swollen right leg. She has edema bilaterally and clear lungs. My concern when she arrived was for DVT and PE. These were ruled out by CT and ultrasound and the abdomen was examined with CT as well. When this patient presented to the ED my concern was for life threatening processes and what appeared to be neglect/non-compliance by the patient. On evaluation she appears to have significant fluid retention but does not appear to have pulmonary edema. The wound is foul smelling large and with macerated skin and the patient assures me this is improved from its usual. Her blood work was surprisingly normal and reassuring and she is administered IV lasix and her wound is cultured and dressed. I discussed with the patient admission and she declined indicating she would much prefer to go home as she is a hermit and would prefer to be around less people. Departure - Departure Disposition: 01 Home, Self Care Clinical Impression: Edema due to congestive heart failure Chronic abdominal wound infection Qualifiers: Encounter type: initial encounter Qualified Code(s): S31.109A - Unspecified open wound of abdominal wall, unspecified quadrant without penetration into peritoneal cavity, initial encounter Condition: Stable Instructions: ED CHF Right Side, Lasix, ED Wound Care Follow-Up: Veronique Sutton ARNP [Credentialed Staff Provider] - Prescriptions: Ciprofloxacin HCl [Cipro] 500 mg PO BID #20 tablet Furosemide [Lasix] 40 mg PO DAILY #30 tablet Potassium Chloride 20 meq PO DAILY #30 tablet.er
[2017-07-30 20:45] LABS: BASOPHILS % (AUTO) 0.5 %; EOSINOPHILS # (AUTO) 0.1 10^3/uL (0.0-0.7); EOSINOPHILS % (AUTO) 1.1 %; HGB - HEMOGLOBIN 13.2 g/dL (12.0-16.0); LYMPHOCYTES # (AUTO) 0.8 10^3/uL (1.5-3.5); LYMPHOCYTES % (AUTO) 14.9 %; MEAN CORPUSCULAR HEMOGLOBIN 28.3 pg (27.0-31.0); MEAN CORPUSCULAR HGB CONC 32.4 g/dL (32.0-36.0); MEAN CORPUSCULAR VOLUME 87.5 fL (81.0-99.0); MEAN PLATELET VOLUME 8.3 fL (7.9-10.8); MONOCYTES # (AUTO) 0.6 10^3/uL (0.0-1.0); MONOCYTES % (AUTO) 11.6 %; NEUTROPHILS % (AUTO) 71.9 %; PLT - PLATELET COUNT 205 10^3/uL (130-450); RED BLOOD COUNT 4.66 10^6/uL (4.20-5.40); RED CELL DISTRIBUTION WIDTH 14.4 % (12.0-15.0); WHITE BLOOD COUNT 5.5 x10^3/uL (4.8-10.8)
[2017-07-30 20:55] LABS: ALBUMIN 3.7 g/dL (3.2-5.5); ALBUMIN/GLOBULIN RATIO 1.1 (1.0-2.2); BILIRUBIN,TOTAL 0.3 mg/dL (0.2-1.0); CALCIUM 8.9 mg/dL (8.5-10.3); CREATININE 0.4 mg/dL (0.4-1.0); TOTAL PROTEIN 7.1 g/dL (6.7-8.2)
[2017-07-30] MEDS ORDERED: IOPAMIDOL-300 100 ML VIAL ONE ×2 (20:57→21:52)
[2017-07-30] MEDS ORDERED: ENOXAPARIN 100 MG/ML SYRINGE SUBQ STA (21:19)
[2017-07-30] MEDS: IOPAMIDOL-300 100 ML VIAL IVP ONE ×3 (21:25→22:43)
[2017-07-30 22:07] LABS: BILIRUBIN,URINE NEGATIVE (NEGATIVE); GLUCOSE, URINE (UA) NEGATIVE (NEGATIVE); KETONES,URINE (UA) NEGATIVE (NEGATIVE); LEUKOCYTE ESTERASE, URINE NEGATIVE (NEGATIVE); NITRITE,URINE NEGATIVE (NEGATIVE); OCCULT BLOOD,URINE NEGATIVE (NEGATIVE); PROTEIN,URINE NEGATIVE (NEGATIVE); UROBILINOGEN,URINE 0.2 (NORMAL) E.U./dL (NORMAL)
--- NOTE | 2017-07-30 22:12 | Ultrasound Preliminary Report ---
Exam: US DUPLEX EXT VEINS RIGHT IMPRESSION: 1. No evidence for deep venous thrombosis. 2. Mid to distal femoral vein, popliteal vein, and calf veins are suboptimally seen due to swelling. [facility] SITE ID: [id number]
--- NOTE | 2017-07-30 22:12 | Ultrasound Report ---
EXAM: RIGHT LOWER EXTREMITY VENOUS ULTRASOUND EXAM DATE: 07/30/2017 09:52 PM. CLINICAL HISTORY: Massive leg swelling. COMPARISON: 08/24/2006. TECHNIQUE: Real-time sonographic vascular imaging was performed by the aircraft instrument tester through the lower extremity utilizing both color-flow and Doppler spectral analysis. Multiple sales representative church furniture static helena ges were saved for review. FINDINGS: Common Femoral Vein (CFV): Normal. CFV-GSV Junction: Normal. Profunda Femoral Vein (PFV): Normal. Femoral Vein (FV) Prox: Normal. Femoral Vein (FV) Mid: Normal as visualized. Femoral Vein (FV) Dist: Normal as visualized. Popliteal Vein: Normal as visualized. Posterior Tibial Veins: Normal as visualized. Peroneal Veins: Not seen. Other: Marked edema. IMPRESSION: 1. No evidence for deep venous thrombosis. 2. Mid to distal femoral vein, popliteal vein, and calf veins are suboptimally seen due to swelling. [facility] Referring Provider Line: [phone] SITE ID: [id number]
[2017-07-30 22:16] LABS: CLARITY,URINE CLEAR (CLEAR)
--- NOTE | 2017-07-30 22:19 | CT Report ---
EXAM: CT ABDOMEN AND PELVIS EXAM DATE: 07/30/2017 09:31 PM. CLINICAL HISTORY: Abdominal pain. Lower draining umbilicus. COMPARISONS: 07/12/2014. TECHNIQUE: Routine helical CT imaging was performed through the abdomen and pelvis. IV contrast: 100 ML ISOVUE 300. Enteric contrast: No. Reconstructions: Coronal and sagittal. In accordance with CT protocol optimization, one or more of the following dose reduction techniques w ere utilized for this exam: automated exposure control, adjustment of mA and/or KV based on patient s ize, or use of iterative reconstructive technique. FINDINGS: Lung Bases: Moderate hiatal hernia. Liver: Normal. No masses. Gallbladder/Bile Ducts: Gallstone. No dilated ducts. Spleen: Normal. Pancreas: Normal. Adrenal Glands: Normal. Kidneys: Normal. No masses or hydronephrosis. Peritoneal Cavity/Bowel: Moderate diverticulosis. No free fluid, free air or adenopathy. No masses or acute inflammatory process. Nonvisualized appendix. Pelvic Organs: Normal. The bladder and visualized pelvic organs are within normal limits. Vasculature: No aortic aneurysm. Mild atherosclerotic calcification. Bones: Stable S-shaped scoliosis with multilevel degenerative lumbar disk disease. Other: Open periumbilical wound overlying the mesh 2.3 cm across, larger than prior. Ventral hernia t o the left of the open wound with a neck of 3.3 cm containing unremarkable large bowel. IMPRESSION: 1. Enlarging periumbilical wound overlying the surgical mesh. 2. Ventral hernia to the left of the open wound containing unremarkable large bowel. 3. Moderate hiatal hernia. 4. Gallstone. 5. Moderate diverticulosis without diverticulitis. [facility] Referring Provider Line: [phone] SITE ID: [id number]
--- NOTE | 2017-07-30 23:08 | CT Report ---
EXAM: CT ANGIOGRAM CHEST EXAM DATE: 07/30/2017 10:40 PM. CLINICAL HISTORY: Shortness of breath. Leg swelling. COMPARISON: None. TECHNIQUE: Routine helical imaging was performed through the chest in the pulmonary arterial phase. I V Contrast: Nonionic. Reconstructions: Coronal 3-D MIP reconstructions.Sagittal and coronal. In accordance with CT protocol optimization, one or more of the following dose reduction techniques w ere utilized for this exam: automated exposure control, adjustment of mA and/or KV based on patient s ize, or use of iterative reconstructive technique. FINDINGS: Pulmonary Arteries: Diagnostic quality: Adequate through the segmental arteries. No evidence for acute or chronic pulmona ry emboli. No evidence of right heart strain. Lungs/Pleura: Possible interstitial edema. Small pleural effusions. Bibasilar atelectasis. No pneumot horax. Mediastinum: Moderate cardiomegaly. Coronary artery calcifications. Moderate hiatal hernia. No lympha denopathy seen. Thoracic Aorta: Not well enhanced. Mild atherosclerosis. No aortic aneurysm. Upper Abdomen: See separate abdomen and pelvis CT report. Other: Osteopenia. Scoliosis and degenerative changes in the spine. Degenerative joint disease in the shoulders. Old sternal fracture. IMPRESSION: 1. No pulmonary emboli seen. 2. Cardiomegaly and coronary artery calcifications with small pleural effusions and possible intersti tial edema. 3. Bibasilar atelectasis and moderate hiatal hernia. [facility] Referring Provider Line: [phone] SITE ID: [id number]
--- NOTE | 2017-07-30 23:08 | CT Preliminary Report ---
Exam: CT CHEST ANGIO (PE) IMPRESSION: 1. No pulmonary emboli seen. 2. Cardiomegaly and coronary artery calcifications with small pleural effusions and possible intersti tial edema. 3. Bibasilar atelectasis and moderate hiatal hernia. [facility] SITE ID: [id number]
[2017-07-31] MEDS ORDERED: ACETAMINOPHEN 325 MG TABLET PO STA (00:24)
[2017-07-31] MEDS ORDERED: FUROSEMIDE 40 MG/4 ML VIAL IVP STA (01:42)
[2017-07-31] MEDS ORDERED: MAG HYDROX/AL HYDROX/SIMETH 30 ML UDC PO STA (07:24)
[2017-07-31 09:22] VITALS: BP 110/74
== END 2017-07-31 08:45 | disposition home or self-care (01) ==
LOC: EDUNIT# → EDBD → ED 19:58
DX: R60.0 Localized edema (principal); I11.0 Hypertensive heart disease with heart failure; I50.9 Heart failure, unspecified; S31.109A Unspecified open wound of abdominal wall, unspecified quadrant without penetration into peritoneal cavity, initial encounter; X58.XXXA Exposure to other specified factors, initial encounter
CPT/HCPCS: 36415; 71275; 74177; 80053; 81003; 83605; 83690; 83880; 84484; 85025; 87040; 87070; 87181; 87205; 93971; 96372; 96374; 99284; 99285; A9270; J1650; Q9967; 81001; 87086

== ENCOUNTER 2017-08-09 14:45 | Outpatient (CLI) | payer MEDICARE, MEDICAID | END 2017-08-09 15:00 | disposition home or self-care (01) | LOC: RT.N 14:45 | PROVIDERS: ATTEND Nurse Practitioner Gerontology | DX: I48.91 Unspecified atrial fibrillation (principal) | CPT/HCPCS: 93005 ==

== ENCOUNTER 2017-10-27 21:04 | Outpatient (CLI) | payer MEDICARE, MEDICAID | END 2017-10-27 21:05 | disposition critical access hospital (66) | LOC: EMS 21:04 | PROVIDERS: ATTEND Surgery | DX: K62.5 Hemorrhage of anus and rectum (principal) | CPT/HCPCS: A0425; A0429; A0999 ==

== ENCOUNTER 2017-10-27 21:19 | Inpatient (IN) | payer MEDICARE, MEDICAID ==
[2017-10-27] MEDS ORDERED: PANTOPRAZOLE 40 MG VIAL IVP STA (21:26)
--- NOTE | 2017-10-27 21:39 | ED Physician Documentation ---
PD HPI GI BLEED - Stated complaint Stated Complaint: RECTAL BLEED - Chief complaint Chief Complaint: Abd Pain - History obtained from History obtained from: Patient, EMS - History of Present Illness Timing - onset: Today Timing - details: Abrupt onset Associated symptoms: BRBPR Contributing factors: Anticoagulated Similar symptoms before: Work up / diagnostics Recently seen: Not recently seen - Additional information Additional information: Patient is a 77 year old female on xeralto who is brought in by ems for a presumed lower gi bleed. patient states that she had a bowel movement and there was bright red blood on the stool and in the toilet. patient called ems. EMS confirmed that there was blood in the toilet and some blood tissue. Patient states that she has had a colonoscopy in the past but does not know the results. Review of Systems Ten Systems: 10 systems reviewed and negative Cardiac: reports: Pedal edema GI: reports: Abdominal Pain, Abdominal Swelling, Bloody / black stool. denies: Nausea, Vomiting Musculoskeletal: reports: Extremity swelling Neurologic: reports: Generalized weakness. denies: Focal weakness, Numbness, Syncope, Confused, Altered mental status PD PAST MEDICAL HISTORY - Past Medical History Cardiovascular: Hypertension, Atrial fibrillation GI: Chronic constipation, Hemorrhoids Psych: Schizophrenia - Past Surgical History Past Surgical History: Yes - Present Medications Home Medications: Ambulatory Orders Medication Instructions Recorded Confirmed raNITIdine HCl [Ranitidine HCl] 150 mg PO BID 08/14/12 10/27/17 Docusate Sodium [Stool Softener] 250 mg PO BID 09/11/12 10/27/17 Ferrous Sulfate [Iron] 325 mg PO TID 09/25/12 10/27/17 Multivitamin [Multivitamins] 1 each PO DAILY 09/25/12 10/27/17 Vitamin E 400 unit PO DAILY 09/25/12 10/27/17 Risperidone Microspheres 37.5 mg IM ONCE 11/20/12 07/25/17 [Risperdal Consta] Lactulose [Kristalose] 20 gm PO PRN PRN MDD bid 06/25/13 07/25/17 Cholecalciferol (Vitamin D3) 2,000 unit PO DAILY 03/18/14 07/25/17 [Vitamin D3] Cyanocobalamin (Vitamin B-12) 1,000 mcg PO DAILY 03/18/14 07/25/17 [Vitamin B-12] Zinc 50 mg PO DAILY 03/18/14 10/27/17 Acetaminophen 1,000 mg PO Q8H 09/06/16 10/27/17 Apixaban [Eliquis] 5 mg PO BID 09/06/16 07/25/17 Ascorbic Acid [Vitamin C] 1,000 mg PO BID 09/06/16 07/25/17 Diltiazem HCl [Diltiazem ER] 180 mg PO DAILY 09/06/16 07/25/17 Metoprolol Tartrate 25 mg PO BID 09/06/16 10/27/17 guaiFENesin [Guaifenesin] 100 mg PO DAILY 09/06/16 07/25/17 Furosemide [Lasix] 40 mg PO DAILY #30 tablet 07/31/17 10/27/17 Potassium Chloride 20 meq PO DAILY #30 tablet.er 07/31/17 Sennosides/Docusate Sodium [Stool 1 each PO BID PRN 10/27/17 10/27/17 Softener-Laxative Tablet] - Allergies Allergies/Adverse Reactions: Allergies Allergy/AdvReac Type Severity Reaction Status Date / Time penicillin G Allergy Intermediate Anaphylaxis Verified 10/27/17 21:27 strawberry [[place]] Allergy Intermediate Rash Verified 10/27/17 21:27 orange flavor Allergy Rash Verified 10/27/17 21:27 - Social History Does the pt smoke?: No Smoking Status: Never smoker Does the pt drink ETOH?: No Does the pt have substance abuse?: No - Immunizations Immunizations are current?: No Immunizations: TDAP >10years/unknown - POLST Patient has POLST: No PD ED PE NORMAL - Vitals Vital signs reviewed: Yes - General General: Alert and oriented X 3 - HEENT HEENT: Atraumatic PD ED PE EXPANDED - Cardiac Cardiac: Irregularly irregular - Abdomen Abdomen: Surgical scars, Other (open abdominal wound with dressing) - Rectal Rectal: Other (bloody stools in diaper) - Extremities Extremities: Pedal edema R (plus 3) Results - Vitals Vitals: Vital Signs - 24 hr 10/27/17 10/27/17 10/27/17 21:20 22:10 22:45 Temperature 37.2 C Heart Rate 83 97 100 Respiratory 22 19 19 Rate Blood Pressure 138/63 H 158/81 H 140/83 H O2 Saturation 93 95 95 Oxygen O2 Source Room air - Labs Labs: Laboratory Tests 10/27/17 10/27/17 10/27/17 21:39 21:39 21:39 WBC 8.4 RBC 4.47 Hgb 12.7 Hct 38.4 MCV 85.9 MCH 28.3 MCHC 33.0 RDW 15.3 H Plt Count 210 MPV 7.9 Neut # (Auto) 6.1 Lymph # (Auto) 1.1 L [place] # (Auto) 1.1 H Eos # (Auto) 0.1 Baso # (Auto) 0.1 Absolute Nucleated RBC 0.00 Nucleated RBC % 0.0 PT 12.3 INR 1.1 APTT 28.0 Sodium Potassium Chloride Carbon Dioxide Anion Gap BUN Creatinine Estimated GFR (MDRD) Glucose Calcium Total Bilirubin AST ALT Alkaline Phosphatase Total Protein Albumin Globulin Albumin/Globulin Ratio Lipase Blood Type O POSITIVE Antibody Screen NEGATIVE 10/27/17 21:39 WBC RBC Hgb Hct MCV MCH MCHC RDW Plt Count MPV Neut # (Auto) Lymph # (Auto) [place] # (Auto) Eos # (Auto) Baso # (Auto) Absolute Nucleated RBC Nucleated RBC % PT INR APTT Sodium 133 L Potassium 4.0 Chloride 96 L Carbon Dioxide 31 Anion Gap 6.0 BUN 5 L Creatinine 0.5 Estimated GFR (MDRD) 120 Glucose 106 H Calcium 8.7 Total Bilirubin 0.7 AST 17 ALT 18 Alkaline Phosphatase 130 H Total Protein 6.6 L Albumin 3.5 Globulin 3.1 Albumin/Globulin Ratio 1.1 Lipase 16 L Blood Type Antibody Screen PD MEDICAL DECISION MAKING - ED course Complexity details: reviewed old records, reviewed results, re-evaluated patient , considered differential, d/w patient, d/w statistical consultant ED course: Patient was seen and examined at bedside. IV access was gained and labs were drawn. Patient was treated with bolus of protonix. rectal exam showed marroon stools. Case was discussed with long wall shear operator surgeon (Wanda Doe) and hospitalist. it was decided to admit the patient under the service of the hospitalist and the patient would be followed by the surgeon. - Sepsis Event Vital Signs: Vital Signs - 24 hr 10/27/17 10/27/17 10/27/17 21:20 22:10 22:45 Temperature 37.2 C Heart Rate 83 97 100 Respiratory 22 19 19 Rate Blood Pressure 138/63 H 158/81 H 140/83 H O2 Saturation 93 95 95 Oxygen O2 Source Room air Departure - Departure Disposition: ED Place in Observation Clinical Impression: Rectal bleeding Condition: Good
[2017-10-27 21:47] LABS: BASOPHILS # (AUTO) 0.1 10^3/uL (0.0-0.1); EOSINOPHILS # (AUTO) 0.1 10^3/uL (0.0-0.7); EOSINOPHILS % (AUTO) 0.8 %; HGB - HEMOGLOBIN 12.7 g/dL (12.0-16.0); LYMPHOCYTES # (AUTO) 1.1 10^3/uL (1.5-3.5); LYMPHOCYTES % (AUTO) 12.8 %; MEAN CORPUSCULAR HEMOGLOBIN 28.3 pg (27.0-31.0); MEAN CORPUSCULAR VOLUME 85.9 fL (81.0-99.0); MEAN PLATELET VOLUME 7.9 fL (7.9-10.8); MONOCYTES # (AUTO) 1.1 10^3/uL (0.0-1.0); MONOCYTES % (AUTO) 12.7 %; NEUTROPHILS # (AUTO) 6.1 10^3/uL (1.5-6.6); NEUTROPHILS % (AUTO) 72.7 %; PLT - PLATELET COUNT 210 10^3/uL (130-450); RED BLOOD COUNT 4.47 10^6/uL (4.20-5.40); RED CELL DISTRIBUTION WIDTH 15.3 % (12.0-15.0); WHITE BLOOD COUNT 8.4 x10^3/uL (4.8-10.8)
[2017-10-27 21:53] LABS: INR 1.1 (0.8-1.2); PT - PROTHROMBIN TIME 12.3 secs (9.9-12.6)
[2017-10-27 21:58] LABS: ALBUMIN 3.5 g/dL (3.2-5.5); ALBUMIN/GLOBULIN RATIO 1.1 (1.0-2.2); BILIRUBIN,TOTAL 0.7 mg/dL (0.2-1.0); CALCIUM 8.7 mg/dL (8.5-10.3); CREATININE 0.5 mg/dL (0.4-1.0); TOTAL PROTEIN 6.6 g/dL (6.7-8.2)
[2017-10-27] MEDS ORDERED: PROCHLORPERAZINE 10 MG/2 ML VIAL IVP PRN (22:27)
[2017-10-27] MEDS ORDERED: HYDROmorphone 0.5 MG/0.5 ML SYRINGE IVP PRN (22:27)
[2017-10-27] MEDS ORDERED: ONDANSETRON 4 MG/2 ML VIAL IVP PRN (22:27)
[2017-10-28] MEDS: SODIUM CHLORIDE 0.9% 1,000 ML IV SCH ×2 (00:20→12:31)
[2017-10-28] MEDS: SODIUM CHLORIDE FLUSH 0.9% 10 ML SYRINGE IVP SCH ×3 (00:20→17:45)
--- NOTE | 2017-10-28 03:26 | HISTORY & PHYSICAL EXAMINATION ---
DATE OF SERVICE: 10/27/2017 Physician: Alissa Bob MD PRIMARY CARE PROVIDER: GIANFRANCO Vega. ADMITTING PROVIDER: Alissa Bob MD. CHIEF COMPLAINT: Bright red blood per rectum. HISTORY OF PRESENT ILLNESS: The patient is a 77-year-old female who is living in her own trailer on [address]. She lives on family property and lives next door to her brother. Unfortunately, she is schizophrenic and has profound delusions as well as paranoia. At times it is difficult to get a straightforward history out of this marty lady. In the past, her paranoia and delusions have consisted of being with a black baby most recently as 2011, having [employer] equipment in her belly that has never been removed (that is stated today), that the medical ambulatory clinic was poisoning her and changing her antipsychotic drugs and she refused to go there for a while but was scheduled to go back there again, and various other thought process disorder. At times, she has been in senior care custody to take care of her medical problems at [facility] as well as [facility]. Most of the senior care care centered around decubitus ulcers, foot ulcers, and venous stasis. With this current complaint of bright red blood per rectum, her GI history is extensive. She has always complained of reflux. In August 2006, she presented with severe shortness of breath and fatigue and had anemia that required transfusion. A barium upper GI showed a large hiatal hernia with spontaneous reflux. She was readmitted in September 2006 for more blood transfusions with more anemia. This time on 09/30/2006, she had an EGD and colonoscopy with Dr. Naqvi. 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 She had an 8-mm anal verge polyp. She was referred to gastroenterology in [place] for treatment and followup, but she refused to go and has been followed by Dr. Naqvi. In February 2007, she was readmitted for bright red blood per rectum and anemia of 4.3. She received 6 units of blood then. A repeat EGD and colonoscopy were done and she had the same esophagitis and same Alvarez's changes. This time, she had a transverse colon polyp, but it was unable to be removed, but biopsied. Inflammation was seen in pathology, but no malignancy. She was seen in followup for her history of the polyp and her history of ventral hernia. A repeat colonoscopy done for the transverse colon polyp showed no malignancy. Her final colonoscopy was November 2010, with no pathology noted. In the EMR or her written chart record, I am not seeing any followup EGD since February 2007. She continues to endorse dyspepsia. She denies any nausea, abdominal pain, hematemesis. She did call her primary care provider's office in May 2017 stating that she was having severe vaginal bleeding. They requested that she please go to the emergency room and be seen and she did not. She has not had any WHOLESALE REPRESENTATIVE workup for the supposed vaginal bleeding. Today the patient denied any vaginal bleeding. She is on Xarelto for atrial fibrillation. She had a bowel movement today and there was enough bright red blood per rectum in the toilet bowl and on her stool that she became frightened. EMS confirmed there was blood in the toilet and some blood on the toilet paper. She was brought to the emergency room to be evaluated by Dr. Corrales. Dr. Corrales noted that there was mixed stool and bright red blood in her diaper. She is incontinent of stool and urine. Hemoglobin is stable at 12.7. Platelets are 210. MCV is normal. He consulted with general surgery, who has requested the patient be placed on our service as the attending physicians and that he will consult. PAST MEDICAL HISTORY 1. Chronic abdominal wound infection. She had an exploratory laparotomy in the remote past for unknown reasons. She developed a small incisional hernia, which gradually enlarged and was initially repaired in April [address] Wu. Mesh was used. Subsequent to that, she did develop a small umbilical infection with this. By April 2009 the ventral hernia was starting to recur and the umbilical wound infection continued. By October 2010, the hernia was intermittently incarcerated, getting larger. She underwent a recurrent ventral hernia repair November [address] Naqvi. She continued to have a draining umbilical wound and had yet another repair with Dr. Naqvi April 2011. She was seen by [facility] surgical department in April 2014 for an opinion. It is recommended that the patient have removal of the mesh completely, repair of the hernia without mesh. The patient said she has had enough surgery and has declined to go back. She continues to be seen by the [facility] clinic intermittently for chronic umbilical wound. The patient says that this is unchanged. 2. Chronic venous stasis ulcers resulting in weeping legs and senior care wound care at [facility] 2010. 3. Postoperative pneumonia after her hernia repair May 2007. 4. Chronic atrial fibrillation for unknown duration. The patient's diagnosis shows up in the EMR, no admission, no workup.No statement able to be seen as to when it started. She did not have any workup for atrial fibrillation, other than an echo done in the perioperative setting at [facility] August 2016. That echo shows an ejection fraction of 65%, right ventricular systolic pressure of 35-40 mm, severe left atrial enlargement, and moderate right atrial enlargement. She was started on Eliquis during that admission. 5. Hypertension. 6. EMR carries a diagnosis of "congestive heart failure," but there is no objective data stating the patient has congestive heart failure. She does have chronic lymphedema that probably has nothing to do with right-sided heart failure and more to do with her morbid obesity. 7. Chronic constipation for which she takes lactulose intermittently. 8. Pneumonectomy for unknown reasons in the remote past. 9. The patient declares a of G2, P2, but she did state that she had a third in the postmenopausal state around 2011. Vaginal bleeding was described May 2017. 10. Schizophrenia and anxiety. She is followed by psychiatry in [place]. 11. Decubitus ulcers of the coccyx October 2006. 12. 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 Again, she has had intermittent senior care therapy at [facility] for this. She currently has bilateral plantar abscesses treated with antibiotics off and on by GIANFRANCO Vega. Her last foot x-ray 11/17/2015 shows the deformity in the right foot. The left foot has lucency of uncertain chronicity over the proximal aspect of the fourth metatarsal with active muscle osteomyelitis not excluded. MRI was recommended, but I am not seeing one in the EMR. 13. Osteoarthritis of the knees with bilateral total knee replacements in the past. She then fell August 2016 and had a proximal tibial fracture around the periprosthetic region. She was transferred to [facility] because of the complicated repair and had surgery with orthopedics there. It was felt that she may have a possible joint infection in the involved fracture and prosthetic joint and treatment ended up being prolonged IV antibiotics and a revision of her left total knee replacement and treatment of the proximal tibia fracture. ALLERGIES: SHE IS ALLERGIC TO PENICILLIN G, STRAWBERRY AND ORANGE FLAVOR. MEDICATIONS 1. Tylenol 1000 mg every 8 hours. 2. Eliquis 5 mg p.o. b.i.d. 3. Vitamin C 1000 b.i.d. 4. Vitamin D 2000 daily. 5. Vitamin B12 1000 mcg p.o. daily. 6. Diltiazem extended-release 180 mg daily. 7. Stool softener daily. 8. Iron 325 p.o. t.i.d. 9. Guaifenesin 100 mg daily. 10. Lactulose 20 grams p.r.n. constipation daily. 11. Metoprolol 25 mg p.o. b.i.d. 12. Multivitamin daily. 13. Ranitidine 150 p.o. b.i.d. 14. Risperdal 37.5 mg IM. 15. Vitamin E 400 units daily. 16. Zinc 50 mg daily. The patient is supposed to be getting her Risperdal through injectables at the [facility]. While I do see that she is seen by [facility] for wound care of her feet, the injectable Risperdal was last given 10/24/2017. SOCIAL HISTORY: Because of the patient's paranoia and delusions, her history is choppy and with many gaps. She says that she was born in [facility] and came to the [place] because her family was [place]. She lives on family property on [address]. She has had intermittent senior care care at [facility]. Most recently it was associated with the periprosthetic fracture August 2016. While her brother lives next door to her, [place], she says that he is not her power of transactional attorney, nor is he a durable power for healthcare. She does not trust anybody in her family, including her own children. She would like her psychiatrist to be her power of transactional attorney, as well as durable power of transactional attorney. She says that she never smoked. She rarely drank. She has been and three times. She is disabled, sedentary, and needs frequent care provider intervention. FAMILY HISTORY: Unable to obtain at this time. While she is alert and oriented , she is suspicious of my questioning. REVIEW OF SYSTEMS GENERAL: On general questioning, she denies any recent fevers, sweats, unexpected weight changes. ENT: Wears glasses, has early cataracts that she says will need to be harvested eventually. She has only 4-5 teeth on the bottom row and eats a soft diet. She denies dysphagia, dysarthria. PULMONARY: Gets short of breath with exertion, but she says it has been present for years. No new cough, no new phlegm, no new chest congestion. CARDIAC: While she acknowledges the atrial fibrillation, she does not know what she takes for it. She has chronic leg edema. She denies chest pain or palpitations. Again, her sedentary lifestyle is more from lymphedema and leg pain than cardiac. GASTROINTESTINAL: As above. GENITOURINARY: Positive for urinary incontinence. Even though her [facility] records state that she had vaginal bleeding in May 2017, she now adamantly denies it, that the office must have made a mistake and that it is rectal bleeding she complains of, not vaginal bleeding. She is not currently sexually active. JOINTS: Stiffness in her neck and back always, worse in her hips and knees, most recently. No new effusions. DERMATOLOGIC: Red, hot skin all the time that is dry and flaking over her legs and it gets really swollen. Denies new rashes, new bruises. PSYCHIATRIC: Denies the paranoia and hallucinations. Stoutly maintains that her thought process, even with regards to the "[employer] equipment left in her belly" is real. Denies suicidal ideation. Denies homicidal ideation. ENDOCRINE: Denies polyphagia, polydipsia, polyuria. INSURANCE APPLICATION INVESTIGATOR: Denies syncope, seizures. Feels that her memory is just fine. No focal deficits. Generalized severe deconditioning resulting in a relatively sedentary status. PHYSICAL EXAMINATION VITAL SIGNS: On examination, temperature is 36.7, pulse is 77, blood pressure is 133/81, respirations 18 and 96% on room air. GENERAL: She is a short-statured elderly female who is awake, alert and oriented, cooperative with physical exam. Pale, but in no acute distress. No diaphoresis. No tachycardia. HEENT: Wearing bifocal glasses. Sclerae nonicteric. Pupils reactive. Normal facial symmetry. Speech is normal. Has 4-5 teeth in her bottom front row. No other teeth present. NECK: Supple without JVD, goiter or bruits. LUNGS: Clear to auscultation and percussion without crackles, rhonchi, wheezing. She does have mild increased respiratory effort with speaking to me during the exam. GASTROINTESTINAL: Nontender abdomen. No masses palpable. Hypoactive quiet bowel sounds. No rebound or guarding. The patient is obese, huge pannus. Multiple easily reducible hernias with the largest in the right upper quadrant. Her umbilicus is covered by Kerlix bandage that is dry, clean, and she has a small mushrooming umbilical ulceration. GENITOURINARY: Pelvic shows nonpalpable uterus. No adnexal masses palpable. Glove came away clean without any blood present. However, bladder is present on the labia, external rectum, buttocks and it is bright red blood. EXTREMITIES: There is 3+ edema from the knees down with bright red, hot, scaling skin, especially over the shins. Both joints are deformed around the ankles. Bilateral anterior knee scars. NEUROLOGIC: She is oriented to person, place and time. Can follow 2-step commands, even though highly suspicious. While she does not have focal deficits, she does not have the strength to lift her legs off the bed. She is completely dependent on care providers to transfer her to a sitting position and then to be able to stand one step to transfer to a chair. There are no focal deficits. LABORATORY DATA: Sodium 133, potassium 4, BUN 5, creatinine 0.5, random glucose 106. Alkaline phosphatase 130. White cell count 8.4, hemoglobin 12.7, hematocrit 38.4, MCV 85.9. INR 1.1. ASSESSMENT AND PLAN 1. Hematochezia in a patient with well documented gastrointestinal history with regard to Alvarez's esophagus, a transverse polyp, and an anal verge polyp. There is no abdominal pain, fever or chills. Suspicion is hemorrhoids bleeding excessively in the face of Eliquis, neoplasm of the anus (but rectal exam was negative for masses). The patient is hemodynamically stable. Plan: Place in observation. Attestation: The patient will be admitted less than 96 hours. General surgery consult with Dr. Edinson Doe to see if she is a candidate for colonoscopy as well as EGD. Do serial hemograms every 6 hours and if hemoglobin drops below 7, transfuse. 2. Chronic umbilical wound infection. Still draining slight yellowish serous drainage, looks like a flattened mushroom. No redness, no heat. Continue daily dressing changes. 3. Schizophrenia. I will attempt to verify with [facility], or pharmacy, how often she is supposed to be getting her injectable Risperdal. Delusions are still in place. She did mention that the [employer] still has equipment in her abdomen that she would rather they take it out. 4. Chronic atrial fibrillation. This patient is on Eliquis. CHADS score was 2 points in the past when calculated at [facility] in association with her proximal tibial fracture. She should be resumed Eliquis when possible. Right now, we will hold off because she may need a scope. 5. Hypertension. On Metoprolol 25 p.o. b.i.d. and Lasix and diltiazem. Currently, her systolic is 133 and has been as high as 158 while in the emergency room. 6. FULL CODE status. She states that at this time, she wants everything done. If that means she has to end up on machines, so be it. She did identify her psychiatrist as the person to contact for advanced directives, or if she is no longer able to speak to herself. I explained that I think that a psychiatrist probably would decline that honor. We usually use a guardian, sibling, child. She describes one child being in [place] having been shot and incarcerated, and another child is "crippled living at [facility]." So right now, this woman does not have a durable power of transactional attorney, or a power of transactional attorney. I will refer to social work to see if we can delineate who can advocate for her if she is unconscious. 7. Deep venous thrombosis prophylaxis. Will be MELISSA stafford at this time because of gastrointestinal bleed. TD: 10/28/2017 01:46 FOSTER
[2017-10-28 05:51] LABS: HGB - HEMOGLOBIN 12.8 g/dL (12.0-16.0); MEAN CORPUSCULAR HEMOGLOBIN 28.1 pg (27.0-31.0); MEAN CORPUSCULAR HGB CONC 31.9 g/dL (32.0-36.0); MEAN CORPUSCULAR VOLUME 88.1 fL (81.0-99.0); MEAN PLATELET VOLUME 7.8 fL (7.9-10.8); RED BLOOD COUNT 4.57 10^6/uL (4.20-5.40); RED CELL DISTRIBUTION WIDTH 15.4 % (12.0-15.0); WHITE BLOOD COUNT 6.1 x10^3/uL (4.8-10.8)
[2017-10-28] MEDS: PANTOPRAZOLE 40 MG VIAL IVP SCH (06:40)
[2017-10-28] MEDS: SODIUM CHLORIDE FLUSH 0.9% 10 ML SYRINGE IVP PRN (06:41)
[2017-10-28] MEDS: diltiaZEM CD 180 MG CAPSULE PO SCH (09:18)
[2017-10-28] MEDS: METOPROLOL TARTRATE 25 MG TABLET PO SCH ×2 (09:18→21:28)
[2017-10-28] MEDS: POLYETHYLENE GLYCOL 3350 17 GM PACKET PO SCH (09:18)
[2017-10-28 11:12] LABS: HGB - HEMOGLOBIN 12.6 g/dL (12.0-16.0); MEAN CORPUSCULAR HEMOGLOBIN 28.1 pg (27.0-31.0); MEAN CORPUSCULAR HGB CONC 32.3 g/dL (32.0-36.0); MEAN CORPUSCULAR VOLUME 87.1 fL (81.0-99.0); MEAN PLATELET VOLUME 7.8 fL (7.9-10.8); RED BLOOD COUNT 4.46 10^6/uL (4.20-5.40); RED CELL DISTRIBUTION WIDTH 15.2 % (12.0-15.0); WHITE BLOOD COUNT 6.5 x10^3/uL (4.8-10.8)
--- NOTE | 2017-10-28 14:27 | CONSULTATION NOTE ---
Referring Provider Name of Referring Provider:: Dr. Bob Consult Date: 10/28/17 Chief Complaint - Chief Complaint Chief Complaint: rectal bleeding History of Present Illness - Admitted From Admitted From:: ER - History Obtained From Records Reviewed: yes History obtained from: pt, records Exam Limitations: psych issues - History of Present Illness HPI Comment/Other: 77 yo female admitted last night with 1-2 day hx of painless BRBPR, described as multiple episodes of maroon stool passing into her diaper. She is incontinent of urine and stool. Prior to this she moved her bowels normally 1-2 x per day using laxatives for chronic constipation. She has a hx of profound anemia due to GI bleeding in 2006 evaluated with EGDs showing a large hiatal hernia, erosive esophagitis and Alvarez's esophagus, and colonoscopies showing polyps, which were non neoplastic by report. A second episode of profound anemia associated with painless rectal bleeding later that year was evaluated in a similar fashion with similar results. She takes Mylanta for heartburn daily , along with ranitidine, and reports no dysphagia as long as she cuts her food into small pieces, chews carefully and washes solids down with liquids. Her most recent colonoscopy was in 2010 and reportedly nl. Neg FH GI tumors. No recent wt loss, N/V. She had been prescribed apixaban for atrial fibrillation but it appears that she has not taken this medication for several months. She also apparently has been using ibuprofen recently for unclear reasons. She has a chronic drainage sinus arising from her umbilical region related to prior VIH repair with mesh that pt refuses to have removed. History - Past Medical History Cardiovascular: reports: Hypertension, Atrial fibrillation Respiratory: reports: Asthma GI: reports: GERD, GI bleed, Hiatal hernia, Colon polyps, Chronic constipation, Hemorrhoids : reports: Incontinence Psych: reports: Schizophrenia Musculoskeletal: reports: Other (chronic lower extremity edema) MRSA Hx?: Yes - Past Surgical History General: reports: Colonoscopy, EGD, Other (remote exlap of unclear nature, VIH repair with mesh) - Family & Social History Family History Comment/Other: Neg for GI tumors Living arrangement: At home Living Situation: With family - Substance History Use: Uses substance without health or social issues: NONE Abuse: Recurrent use of substance despite neg consequences: NONE Dependence: Experiences withdrawal or developed tolerances: NONE - POLST Patient has POLST: No Meds/Allgy - Home Medications Home Medications: Ambulatory Orders Medication Instructions Recorded Confirmed raNITIdine HCl [Ranitidine HCl] 150 mg PO BID 08/14/12 10/27/17 Docusate Sodium [Stool Softener] 250 mg PO BID 09/11/12 10/27/17 Ferrous Sulfate [Iron] 325 mg PO TIDWM 09/25/12 10/28/17 Multivitamin [Multivitamins] 1 each PO DAILY 09/25/12 10/27/17 Vitamin E 400 unit PO DAILY 09/25/12 10/27/17 Risperidone Microspheres 37.5 mg IM .[id number] 11/20/12 10/28/17 [Risperdal Consta] Cholecalciferol (Vitamin D3) 2,000 unit PO DAILY 03/18/14 10/28/17 [Vitamin D3] Zinc 50 mg PO DAILY 03/18/14 10/27/17 Acetaminophen 1,000 mg PO Q8H 09/06/16 10/27/17 Diltiazem HCl [Diltiazem ER] 180 mg PO DAILY 09/06/16 10/28/17 Metoprolol Tartrate 25 mg PO DAILY 09/06/16 10/28/17 Furosemide [Lasix] 40 mg PO DAILY #30 tablet 07/31/17 10/27/17 Potassium Chloride 20 meq PO DAILY #30 tablet.er 07/31/17 10/28/17 Sennosides/Docusate Sodium [Stool 1 each PO BID PRN 10/27/17 10/27/17 Softener-Laxative Tablet] - Allergies Allergies/Adverse Reactions: Allergies Allergy/AdvReac Type Severity Reaction Status Date / Time penicillin G Allergy Intermediate Anaphylaxis Verified 10/27/17 21:27 strawberry [[place]] Allergy Intermediate Rash Verified 10/27/17 21:27 orange flavor Allergy Rash Verified 10/27/17 21:27 Review of Systems - Constitutional Constitutional: reports: Weight gain - Gastrointestinal Gastrointestinal: reports: Constipation, Change in bowel habits, Rectal bleeding , Bloody stools, Reflux/heartburn. denies: Nausea, Vomiting, Coffee grounds emesis - Genitourinary Genitourinary: reports: Incontinence - Psychiatric Psychiatric: reports: Delusions - Hematologic/Lymphatic Hematologic/Lymphatic: denies: Blood clots, Bleeding tendencies - All Other Systems All Other Systems: reports: Reviewed and negative Exam - Vital Signs Reviewed Vital Signs: Yes Vital Signs: Vital Signs x48h Temp Pulse Resp BP BP Pulse Ox 10/28/17 09:18 145/79 H 10/28/17 08:00 36.7 C 76 16 145/79 H 94 - Physical Exam General Appearance: positive: No acute distress, Alert Eyes Bilateral: positive: Normal inspection, Conjunctivae nml, No scleral icterus ENT: positive: ENT inspection nml, Pharynx nml, No signs of dehydration Neck: positive: No JVD. negative: Lymphadenopathy (R), Lymphadenopathy (L) Respiratory: positive: Chest non-tender, No respiratory distress, Breath sounds nml Cardiovascular: positive: No murmur, No gallop, Irregularly irregular Abdomen: positive: Non-tender, No organomegaly, Nml bowel sounds, No distention , Other (open wound at umbilicus with visible mesh and foul smelling perez purulent d/c.). negative: Hepatomegaly, Splenomegaly, Mass Skin: positive: Color nml, Warm, Dry Extremities: positive: Pedal edema. negative: Calf tenderness Neurologic/Psychiatric: positive: Oriented x3 Conclusion/Plan - Diagnosis Diagnosis: 1. GI bleed; appears lower; appears to be resolving clinically at present; ddx includes angiodysplasia, diverticulosis, internal hemorrhoids, CRC , IBD, etc. Pt is hemodyamically stable. 2. Longstanding hx of GERD, erosive esophagitis, and Alvarez's esophagus; f/u is warranted at this time to reassess status of her disease. 3. 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 - Plan Plan: 1. I advised pt to undergo EGD/colon for further evaluation tomorrow following bowel prep tonight. She is agreeable. 2. Wound care to abdominal sinus; pt has declined removal of the mesh. - Lab Results Fish Bones: 10/28/17 11:05 10/27/17 21:39
--- NOTE | 2017-10-28 15:51 | PROVIDER PROGRESS NOTE ---
Assessment/Plan - Problem List (1) GI bleed Qualifiers: GI bleed type/associated pathology: unspecified gastrointestinal hemorrhage type Qualified Code(s): K92.2 - Gastrointestinal hemorrhage, unspecified Assessment/Plan: Patient presented with hematochezia with well-documented gastrointestinal history with regard to Alvarez's esophagus, transverse polyp and an anal verge polyp. There is no abdominal pain, fevers or chills. Suspicion is hemorrhoidal bleeding excessively in the face of Eliquis or neoplasm of the anus. The patient was hemodynamically stable on presentation and had a normal hemoglobin. Later we found that the patient has not filled her Eliquis for several months therefore it is unlikely that she has been taking it. She has however been using Motrin 600 mg multiple times a day intermittently. The patient has maroon stools today. Given her NSAID use the patient needs both an EGD and colonoscopy. Hemoglobin remained stable and patient is hemodynamically stable per Plan: General surgery consult for EGD/colonoscopy Patient will have EGD/colonoscopy tomorrow Bowel prep Monitor H&H every 6 IV fluid (2) Chronic abdominal wound infection Qualifiers: Encounter type: subsequent encounter Qualified Code(s): S31.109D - Unspecified open wound of abdominal wall, unspecified quadrant without penetration into peritoneal cavity, subsequent encounter; L08.9 - Local infection of the skin and subcutaneous tissue, unspecified; L08.9 - Local infection of the skin and subcutaneous tissue, unspecified Assessment/Plan: The patient has a chronic umbilical wound infection. It is still draining slight yellowish serous drainage and is a foul-smelling. This infection is because she would not allow for surgery to close her wound and remove a mesh for a hernia. The patient is followed at the wound clinic. Recommendations by wound care are daily dressing changes with 1 inch of iodoform and irrigation of the wound daily. (3) Schizophrenia Qualifiers: Schizophrenia type: unspecified Qualified Code(s): F20.9 - Schizophrenia, unspecified Assessment/Plan: The patient has a history of schizophrenia and is taking risperidone 37.5 milligrams IM every 2 weeks at the [facility] [place] clinic. The patient does not appear to be on any other psych medications. The patient does have some paranoid type thoughts but otherwise seems to be stable at the moment. (4) Chronic atrial fibrillation Assessment/Plan: Patient has a history of chronic atrial fibrillation and has a chads 2 score of 2. The patient has been placed on Eliquis in the past. It appears from her pharmacy records that the patient has not been compliant with Eliquis and has not been filled for several months. The patient is on metoprolol and diltiazem for rate control. The patient will be continued on metoprolol and diltiazem IV as needed. We will obviously hold the Eliquis for ongoing GI bleed. - Current Meds Current Meds: Current Medications Generic Name Dose Route Start Last Admin Trade Name Freq PRN Reason Stop Dose Admin Diltiazem HCl 180 mg 10/28/17 09:00 10/28/17 09:18 Cardizem Cd PO 180 mg DAILY SERVANDO Administration Sodium Chloride 1,000 mls @ 85 mls/hr 10/27/17 23:00 10/28/17 12:31 Normal Saline 0.9% IV 85 mls/hr .[id number] SERVANDO Administration Metoprolol Tartrate 25 mg 10/28/17 09:00 10/28/17 09:18 Lopressor PO 25 mg BID SERVANDO Administration Pantoprazole Sodium 40 mg 10/28/17 07:00 10/28/17 06:40 Protonix IVP 40 mg QDAC SERVANDO Administration Polyethylene Glycol 17 gm 10/28/17 09:00 10/28/17 09:18 Miralax PO Not Given DAILY SERVANDO Sodium Chloride 10 ml 10/27/17 22:27 10/28/17 06:41 Normal Saline Flush 0.9% IVP 10 ml PRN PRN Administration NEEDED PER PROVIDER ORDERS Sodium Chloride 10 ml 10/28/17 01:00 10/28/17 08:15 Normal Saline Flush 0.9% IVP Not Given 0100,0900,1700 SERVANDO - Lab Result Lab results reviewed: Yes Fish Bone Diagrams: 10/28/17 11:05 10/27/17 21:39 - Diagnostic Imaging Results Diagnostic Imaging Results: Final report reviewed - Additional Planning Condition/Complexity: Stable My Orders: My Active Orders 10/28/17 Wound Consult MAC [MAC] Routine 10/28/17 15:42 Miscellaenous Nursing Order [RC] QSHIFT 10/28/17 15:44 Admit [Admit \ Transfer \ Status] [RC] .ONCE Consult/Specialty: Surgery Plan Discussed with:: Patient Time Spent: 31-60 minutes Subjective - Subjective Patient Reports: Other (She continues to have blood in stools. This morning had a BM with maroon stools. She denies any abdominal pain.) Nursing Reports: No Complaints Objective Vital Signs: Vital Signs - 24 hr 10/27/17 10/27/17 10/28/17 22:45 23:08 04:32 Temperature 36.7 C 36.6 C Heart Rate 100 Heart Rate [ 77 98 Brachial] Heart Rate [ Radial] Respiratory 19 18 24 Rate Blood Pressure 140/83 H Blood Pressure 133/81 H 134/79 H [Left Brachial artery] Blood Pressure [Left Radial artery] O2 Saturation 95 96 95 10/28/17 10/28/17 10/28/17 08:00 09:18 15:26 Temperature 36.7 C 36.8 C Heart Rate Heart Rate [ 76 Brachial] Heart Rate [ 90 Radial] Respiratory 16 24 Rate Blood Pressure 145/79 H Blood Pressure 145/79 H [Left Brachial artery] Blood Pressure 142/79 H [Left Radial artery] O2 Saturation 94 96 Oxygen O2 Source Room air I&O (Last 24 Hrs): Intake and Output Totals x24h 10/26/17 10/27/17 10/28/17 23:59 23:59 23:59 Intake Total 1000 Balance 1000 General: Alert, Oriented x3, Cooperative, No acute distress HEENT: Atraumatic, PERRLA, EOMI, Mucous membr. moist/pink Neck: Supple, No JVD, No thyromegaly, +2 carotid pulse wo bruit, No LAD Lymphatic: no adenopathy Neuro: Alert, Non Focal, CN 2-12 Grossly Intact, Oriented Times 3 Cardiovascular: No murmurs, Other (Irregularily irregular) Respiratory: Chest non-tender, No respiratory distress, Breath sounds nml Abdomen: Normal bowel sounds, Soft, Other (Foul smelling, draining wound in center of abdomen which is dressed.) Extremities: No clubbing, No cyanosis, No edema, Normal pulses, No tenderness/ swelling Skin: No rashes, No breakdown - Results Results: Laboratory Results WBC 6.5 x10^3/uL (4.8-10.8) 10/28/17 11:05 RBC 4.46 10^6/uL (4.20-5.40) 10/28/17 11:05 Hgb 12.6 g/dL (12.0-16.0) 10/28/17 11:05 Hct 38.9 % (37.0-47.0) 10/28/17 11:05 MCV 87.1 fL (81.0-99.0) 10/28/17 11:05 MCH 28.1 pg (27.0-31.0) 10/28/17 11:05 MCHC 32.3 g/dL (32.0-36.0) 10/28/17 11:05 RDW 15.2 % (12.0-15.0) H 10/28/17 11:05 Plt Count 211 10^3/uL (130-450) 10/28/17 11:05 MPV 7.8 fL (7.9-10.8) L 10/28/17 11:05 Neut # (Auto) 6.1 10^3/uL (1.5-6.6) 10/27/17 21:39 Lymph # (Auto) 1.1 10^3/uL (1.5-3.5) L 10/27/17 21:39 [place] # (Auto) 1.1 10^3/uL (0.0-1.0) H 10/27/17 21:39 Eos # (Auto) 0.1 10^3/uL (0.0-0.7) 10/27/17 21:39 Baso # (Auto) 0.1 10^3/uL (0.0-0.1) 10/27/17 21:39 Absolute Nucleated RBC 0.00 x10^3/uL 10/27/17 21:39 Nucleated RBC % 0.0 /100WBC 10/27/17 21:39 PT 12.3 secs (9.9-12.6) 10/27/17 21:39 INR 1.1 (0.8-1.2) 10/27/17 21:39 APTT 28.0 secs (24.9-33.3) 10/27/17 21:39 Sodium 133 mmol/L (135-145) L 10/27/17 21:39 Potassium 4.0 mmol/L (3.5-5.0) 10/27/17 21:39 Chloride 96 mmol/L (101-111) L 10/27/17 21:39 Carbon Dioxide 31 mmol/L (21-32) 10/27/17 21:39 Anion Gap 6.0 (6-13) 10/27/17 21:39 BUN 5 mg/dL (6-20) L 10/27/17 21:39 Creatinine 0.5 mg/dL (0.4-1.0) 10/27/17 21:39 Estimated GFR (MDRD) 120 (>89) 10/27/17 21:39 Glucose 106 mg/dL (70-100) H 10/27/17 21:39 Calcium 8.7 mg/dL (8.5-10.3) 10/27/17 21:39 Total Bilirubin 0.7 mg/dL (0.2-1.0) 10/27/17 21:39 AST 17 IU/L (10-42) 10/27/17 21:39 ALT 18 IU/L (10-60) 10/27/17 21:39 Alkaline Phosphatase 130 IU/L (42-121) H 10/27/17 21:39 Total Protein 6.6 g/dL (6.7-8.2) L 10/27/17 21:39 Albumin 3.5 g/dL (3.2-5.5) 10/27/17 21:39 Globulin 3.1 g/dL (2.1-4.2) 10/27/17 21:39 Albumin/Globulin Ratio 1.1 (1.0-2.2) 10/27/17 21:39 Lipase 16 U/L (22-51) L 10/27/17 21:39 Blood Type O POSITIVE 10/27/17 21:39 Antibody Screen NEGATIVE 10/27/17 21:39 ABX Reporting Has patient been on IV antibiotics over the past 48 hours?: No Current Medications - Current Medications Current Medications: Active Medications Generic Name Dose Route Start Last Admin Trade Name Freq PRN Reason Stop Dose Admin Diltiazem HCl 180 mg 10/28/17 09:00 10/28/17 09:18 Cardizem Cd PO 180 mg DAILY SERVANDO Administration Hydromorphone HCl 0.5 mg 10/27/17 22:27 Dilaudid Inj Syringe IVP Q2H PRN Pain 8 to 10 Sodium Chloride 1,000 mls @ 85 mls/hr 10/27/17 23:00 10/28/17 12:31 Normal Saline 0.9% IV 85 mls/hr .[id number] SERVANDO Administration Metoprolol Tartrate 25 mg 10/28/17 09:00 10/28/17 09:18 Lopressor PO 25 mg BID SERVANDO Administration Ondansetron HCl 4 mg 10/27/17 22:27 Zofran Inj IVP Q6HR PRN Nausea / Vomiting Pantoprazole Sodium 40 mg 10/28/17 07:00 10/28/17 06:40 Protonix IVP 40 mg QDAC SERVANDO Administration Risperdal Consta 37. 37.5 each 11/07/17 12:00 5 Mg IM Q14D SERVANDO Polyethylene Glycol 17 gm 10/28/17 09:00 10/28/17 09:18 Miralax PO Not Given DAILY [facility] Prochlorperazine Edisylate 10 mg 10/27/17 22:27 Compazine Inj IVP Q6HR PRN Nausea / Vomiting Sodium Chloride 10 ml 10/27/17 22:27 10/28/17 06:41 Normal Saline Flush 0.9% IVP 10 ml PRN PRN Administration NEEDED PER PROVIDER ORDERS Sodium Chloride 10 ml 10/28/17 01:00 10/28/17 08:15 Normal Saline Flush 0.9% IVP Not Given 0100,0900,1700 [facility] Sodium Sulfate/Potass Sulf/Mag Sulf 177 ml 10/28/17 18:00 Suprep Bowel Prep Kit PO 10/29/17 05:01 1800,0500 [facility] raNITIdine HCl [Ranitidine HCl] 150 mg PO BID 08/14/12 Docusate Sodium [Stool Softener] 250 mg PO BID 09/11/12 Ferrous Sulfate [Iron] 325 mg PO TIDWM 09/25/12 Multivitamin [Multivitamins] 1 each PO DAILY 09/25/12 Vitamin E 400 unit PO DAILY 09/25/12 Risperidone Microspheres [Risperdal Consta] 37.5 mg IM .[id number] 11/20/12 Cholecalciferol (Vitamin D3) [Vitamin D3] 2,000 unit PO DAILY 03/18/14 Zinc 50 mg PO DAILY 03/18/14 Acetaminophen 1,000 mg PO Q8H 09/06/16 Diltiazem HCl [Diltiazem ER] 180 mg PO DAILY 09/06/16 Metoprolol Tartrate 25 mg PO DAILY 09/06/16 Sennosides/Docusate Sodium [Stool Softener-Laxative Tablet] 1 each PO BID PRN
[2017-10-28 17:26] LABS: MEAN CORPUSCULAR HEMOGLOBIN 28.3 pg (27.0-31.0); MEAN CORPUSCULAR HGB CONC 31.8 g/dL (32.0-36.0); MEAN CORPUSCULAR VOLUME 88.8 fL (81.0-99.0); MEAN PLATELET VOLUME 7.9 fL (7.9-10.8); RED BLOOD COUNT 4.59 10^6/uL (4.20-5.40); RED CELL DISTRIBUTION WIDTH 15.4 % (12.0-15.0)
[2017-10-28] MEDS: SODIUM/POTASSIUM/MAG SULFATES 354 ML PREP KIT PO SCH (17:43)
[2017-10-28] MEDS: MAG HYDROX/AL HYDROX/SIMETH 30 ML UDC PO PRN (22:46)
[2017-10-29] MEDS: SODIUM CHLORIDE FLUSH 0.9% 10 ML SYRINGE IVP SCH ×2 (00:04→09:54)
[2017-10-29] MEDS: SODIUM CHLORIDE 0.9% 1,000 ML IV SCH ×2 (00:04→12:31)
[2017-10-29] MEDS: MAG HYDROX/AL HYDROX/SIMETH 30 ML UDC PO PRN (04:10)
[2017-10-29] MEDS: SODIUM/POTASSIUM/MAG SULFATES 354 ML PREP KIT PO SCH (05:08)
[2017-10-29] MEDS: SODIUM CHLORIDE FLUSH 0.9% 10 ML SYRINGE IVP PRN (06:06)
[2017-10-29] MEDS: PANTOPRAZOLE 40 MG VIAL IVP SCH (06:06)
--- NOTE | 2017-10-29 07:33 | PROVIDER PROGRESS NOTE ---
Assessment/Plan - Problem List (1) Rectal bleeding Assessment/Plan: clinically resolving; plan EGD/colon today. (2) Alvarez's esophagus determined by biopsy Assessment/Plan: Needs f/u; plan EGD today. - Current Meds Current Meds: Current Medications Generic Name Dose Route Start Last Admin Trade Name Freq PRN Reason Stop Dose Admin Al Hydroxide/Mg Hydroxide 30 ml 10/28/17 21:42 10/29/17 04:10 Mylanta Plus PO 30 ml Q4HR PRN Administration INDIGESTION Diltiazem HCl 180 mg 10/28/17 09:00 10/28/17 09:18 Cardizem Cd PO 180 mg DAILY SERVANDO Administration Hydromorphone HCl 0.5 mg 10/27/17 22:27 10/28/17 21:27 Dilaudid Inj Syringe IVP 0.5 mg Q2H PRN Administration Pain 8 to 10 Sodium Chloride 1,000 mls @ 85 mls/hr 10/27/17 23:00 10/29/17 00:04 Normal Saline 0.9% IV 85 mls/hr .[id number] SERVANDO Administration Metoprolol Tartrate 25 mg 10/28/17 09:00 10/28/17 21:28 Lopressor PO 25 mg BID SERVANDO Administration Pantoprazole Sodium 40 mg 10/28/17 07:00 10/29/17 06:06 Protonix IVP 40 mg QDAC SERVANDO Administration Polyethylene Glycol 17 gm 10/28/17 09:00 10/28/17 09:18 Miralax PO Not Given DAILY SERVANDO Sodium Chloride 10 ml 10/27/17 22:27 10/29/17 06:06 Normal Saline Flush 0.9% IVP 10 ml PRN PRN Administration NEEDED PER PROVIDER ORDERS Sodium Chloride 10 ml 10/28/17 01:00 10/29/17 00:04 Normal Saline Flush 0.9% IVP Not Given 0100,0900,1700 SERVANDO - Lab Result Lab results reviewed: Yes Fish Bone Diagrams: 10/28/17 17:15 10/27/17 21:39 - Additional Planning Condition/Complexity: Improved Plan Discussed with:: Patient Time Spent: 15-30 minutes Subjective - Subjective Patient Reports: Feeling Better, Resting Comfortably, No Complaints (tolerated bowel prep well) Objective Vital Signs: Vital Signs - 24 hr 10/28/17 10/28/1718 21:25 21:28 23:55 Temperature 36.3 C L Heart Rate [ 101 H Brachial] Heart Rate [ 78 Radial] Respiratory 18 Rate Blood Pressure 151/87 H Blood Pressure 151/87 H 136/70 H [Left Brachial artery] O2 Saturation 93 Oxygen O2 Source Room air I&O (Last 24 Hrs): Intake and Output Totals x24h 10/27/17 10/28/17 10/29/17 23:59 23:59 23:59 Intake Total 1420 2421.75 Output Total 1400 1500 Balance 20 921.75 General: Alert, Cooperative Abdomen: Soft, No tenderness, No hepatospenomegaly, No masses - Results Results: Laboratory Results WBC 7.0 x10^3/uL (4.8-10.8) 10/28/17 17:15 RBC 4.59 10^6/uL (4.20-5.40) 10/28/17 17:15 Hgb 13.0 g/dL (12.0-16.0) 10/28/17 17:15 Hct 40.8 % (37.0-47.0) 10/28/17 17:15 MCV 88.8 fL (81.0-99.0) 10/28/17 17:15 MCH 28.3 pg (27.0-31.0) 10/28/17 17:15 MCHC 31.8 g/dL (32.0-36.0) L 10/28/17 17:15 RDW 15.4 % (12.0-15.0) H 10/28/17 17:15 Plt Count 219 10^3/uL (130-450) 10/28/17 17:15 MPV 7.9 fL (7.9-10.8) 10/28/17 17:15 Neut # (Auto) 6.1 10^3/uL (1.5-6.6) 10/27/17 21:39 Lymph # (Auto) 1.1 10^3/uL (1.5-3.5) L 10/27/17 21:39 [place] # (Auto) 1.1 10^3/uL (0.0-1.0) H 10/27/17 21:39 Eos # (Auto) 0.1 10^3/uL (0.0-0.7) 10/27/17 21:39 Baso # (Auto) 0.1 10^3/uL (0.0-0.1) 10/27/17 21:39 Absolute Nucleated RBC 0.00 x10^3/uL 10/27/17 21:39 Nucleated RBC % 0.0 /100WBC 10/27/17 21:39 PT 12.3 secs (9.9-12.6) 10/27/17 21:39 INR 1.1 (0.8-1.2) 10/27/17 21:39 APTT 28.0 secs (24.9-33.3) 10/27/17 21:39 Sodium 133 mmol/L (135-145) L 10/27/17 21:39 Potassium 4.0 mmol/L (3.5-5.0) 10/27/17 21:39 Chloride 96 mmol/L (101-111) L 10/27/17 21:39 Carbon Dioxide 31 mmol/L (21-32) 10/27/17 21:39 Anion Gap 6.0 (6-13) 10/27/17 21:39 BUN 5 mg/dL (6-20) L 10/27/17 21:39 Creatinine 0.5 mg/dL (0.4-1.0) 10/27/17 21:39 Estimated GFR (MDRD) 120 (>89) 10/27/17 21:39 Glucose 106 mg/dL (70-100) H 10/27/17 21:39 Calcium 8.7 mg/dL (8.5-10.3) 10/27/17 21:39 Total Bilirubin 0.7 mg/dL (0.2-1.0) 10/27/17 21:39 AST 17 IU/L (10-42) 10/27/17 21:39 ALT 18 IU/L (10-60) 10/27/17 21:39 Alkaline Phosphatase 130 IU/L (42-121) H 10/27/17 21:39 Total Protein 6.6 g/dL (6.7-8.2) L 10/27/17 21:39 Albumin 3.5 g/dL (3.2-5.5) 10/27/17 21:39 Globulin 3.1 g/dL (2.1-4.2) 10/27/17 21:39 Albumin/Globulin Ratio 1.1 (1.0-2.2) 10/27/17 21:39 Lipase 16 U/L (22-51) L 10/27/17 21:39 Blood Type O POSITIVE 10/27/17 21:39 Antibody Screen NEGATIVE 10/27/17 21:39 ABX Reporting Has patient been on IV antibiotics over the past 48 hours?: No
[2017-10-29] MEDS: METOPROLOL TARTRATE 25 MG TABLET PO SCH (09:54)
[2017-10-29] MEDS: POLYETHYLENE GLYCOL 3350 17 GM PACKET PO SCH (09:54)
[2017-10-29] MEDS: diltiaZEM CD 180 MG CAPSULE PO SCH (09:54)
[2017-10-29] MEDS ORDERED: LIDO GARGLE 30 ML BOTTLE PO ONE (13:41)
[2017-10-29] MEDS ORDERED: LACTATED RINGERS 1,000 ML IV ONE (13:45)
[2017-10-29] MEDS ORDERED: LIDO GARGLE 30 ML BOTTLE ONE (13:48)
[2017-10-29] MEDS ORDERED: PROPOFOL 200 MG/20 ML VIAL IVP ONE (14:25)
[2017-10-29] MEDS ORDERED: LIDOCAINE-MPF 2% 5 ML VIAL IM ONE (14:25)
--- NOTE | 2017-10-29 15:58 | Discharge Plan ---
Discharge Plan Disposition: 01 Home, Self Care Condition: Stable Diet: Soft Activity Restrictions: Activity as Tolerated Shower Restrictions: No Instruction Topics: Hemorrhoids Self Care, Bleeding Rectal Additional Instructions or Follow Up instructions: Resume all your pre-hospital medications. See your PCP in 1-2 weeks in follow-up. No Smoking: If you smoke, Please STOP! Call for help. Follow-up with: Veronique Sutton ARNP [Primary Care Provider] -
[2017-10-29 17:01] VITALS: BP 146/65
--- NOTE | 2017-10-30 06:37 | DISCHARGE SUMMARY ---
Physician: Kandy Peterson MD DATE OF ADMISSION: 10/28/2017 DATE OF DISCHARGE: 10/29/2017 HISTORY OF PRESENT ILLNESS: This is a 77-year-old white female with a history of schizophrenia with delusions, extensive GI history including past GI bleeds, colonic polyps, prior EGD and colonoscopies, also chronic Afib on novel oral anticoagulant (one note says Xarelto, another says Eliquis), ventral hernia repair in 2010 after several hernia incarceration, [place] [facility] [place] chronic abdominal wall wound at the site of the umbilical hernia repair. HISTORY OF PRESENT ILLNESS: The patient presented to the hospital after she called an ambulance after seeing blood in her toilet bowl and on her toilet paper. In the emergency room, she was confirmed to have maroon stools and was admitted for evaluation of a GI bleed. She had no symptoms with this. HOSPITAL COURSE AND DISCHARGE DIAGNOSES 1. Gastrointestinal bleed. The patient had bowel rest and was kept n.p.o. and underwent an EGD and a colonoscopy after prep. The findings were only that of internal and external hemorrhoids. She was advised to avoid foods that are difficult to digest and defecate and avoid constipation. Since she had no nausea or abdominal pain, and no further rectal bleeding, no new medications were started. Her hemoglobin on admission was 12.7 and did not drop while she was here. 2. Chronic abdominal wall wound infection. The patient did not have evidence of an acute infection related to this site despite draining slight yellowish serous drainage and had a foul smell. The wound was dressed daily with iodoform and had irrigation. 3. Schizophrenia. The patient's risperidone was continued. She had intermittent odd comments, but overall was clinically stable. 4. Chronic atrial fibrillation. The patient's heart rate was stable. It is unclear if she was compliant with her Eliquis or possibly Xarelto. She was given IV diltiazem and metoprolol while she was n.p.o. Ultimately, the oral anticoagulant was not given because of the GI bleed. Decision regarding resumption of this will depend on evaluation and follow-up with her PCP. ALLERGIES: PENICILLIN G, STRAWBERRIES AND ORANGE FLAVORING. DISCHARGE MEDICATIONS: (All of her prehospital medications were continued): 1. Vitamin D3 at 2000 units daily. 2. Metoprolol tartrate 25 mg daily. 3. Iron 325 mg t.i.d. 4. Cardizem CD 180 mg daily. 5. Potassium chloride 20 mEq daily. 6. Risperdal 37.5 mg IM every 2 weeks. 7. Ranitidine 150 mg b.i.d. 8. Zinc 50 mg daily. 9. Vitamin E 400 units daily. 10. Multivitamin daily. 11. Lasix 40 mg daily. 12. Colace 250 mg b.i.d. 13. Tylenol p.r.n. 14. Colace p.r.n. LABS and IMAGING: Reviewed and summarized above. CONDITION AT THE TIME OF DISCHARGE: Stable. PHYSICAL EXAMINATION AT THE TIME OF DISCHARGE VITAL SIGNS: Blood pressure 146/65, pulse of 83, in Afib. Afebrile. Room air saturation 96%. HEENT: Reveals dysmorphic facies, oral mucosa was moist. NECK: Without JVD or carotid bruits. CHEST: Clear. HEART: Heart sounds distant. No audible murmur. ABDOMEN: Soft, decreased bowel sounds, nontender. EXTREMITIES: Without clubbing, cyanosis, or edema. NEUROLOGIC: Intact. FOLLOW UP: With her PCP in 1-2 weeks. CODE STATUS: FULL CODE. Time required to complete this entire discharge, dictation, chart review: 30 minutes. TD: 10/29/2017 17:39 MTDD
== END 2017-10-29 17:10 | disposition home or self-care (01) | DRG 381 ==
LOC: EDUNIT# → ED 21:19 → MS2 22:27 → OBSVTOIN 10-28 15:44
PROVIDERS: ADMIT Specialist; ATTEND Internal Medicine
PROC: 0DB58ZX Excision of Esophagus, Via Natural or Artificial Opening Endoscopic, Diagnostic (ICD-10-PCS; principal; 2017-10-29 12:30)
PROC: 0DBQ8ZX Excision of Anus, Via Natural or Artificial Opening Endoscopic, Diagnostic (ICD-10-PCS; 2017-10-29 12:30)
DX: K22.11 Ulcer of esophagus with bleeding (principal); I11.9 Hypertensive heart disease without heart failure; F20.0 Paranoid schizophrenia; K59.09 Other constipation; I48.2 Chronic atrial fibrillation; F41.9 Anxiety disorder, unspecified; K21.9 Gastro-esophageal reflux disease without esophagitis; K44.9 Diaphragmatic hernia without obstruction or gangrene; K43.2 Incisional hernia without obstruction or gangrene; T85.79XD Infection and inflammatory reaction due to other internal prosthetic devices, implants and grafts, subsequent encounter; L08.89 Other specified local infections of the skin and subcutaneous tissue; L08.9 Local infection of the skin and subcutaneous tissue, unspecified; R32 Unspecified urinary incontinence; R15.9 Full incontinence of feces; I87.8 Other specified disorders of veins; I89.0 Lymphedema, not elsewhere classified; E66.01 Morbid (severe) obesity due to excess calories; Y83.8 Other surgical procedures as the cause of abnormal reaction of the patient, or of later complication, without mention of misadventure at the time of the procedure; Z79.01 Long term (current) use of anticoagulants; Z68.37 Body mass index [BMI] 37.0-37.9, adult; K62.89 Other specified diseases of anus and rectum; Z90.2 Acquired absence of lung [part of]; M19.072 Primary osteoarthritis, left ankle and foot; M19.071 Primary osteoarthritis, right ankle and foot; M14.672 Charcot's joint, left ankle and foot; M14.671 Charcot's joint, right ankle and foot; K57.30 Diverticulosis of large intestine without perforation or abscess without bleeding; Z86.14 Personal history of Methicillin resistant Staphylococcus aureus infection; K64.8 Other hemorrhoids; K64.4 Residual hemorrhoidal skin tags; Z79.899 Other long term (current) drug therapy; Z88.0 Allergy status to penicillin; Z79.1 Long term (current) use of non-steroidal anti-inflammatories (NSAID); Z91.14 Patient's other noncompliance with medication regimen; Z86.010 Personal history of colon polyps
CPT/HCPCS: 36415; 80053; 83690; 85025; 85027; 85610; 85730; 86850; 86900; 86901; 96374; 96376; 99284

== ENCOUNTER 2018-06-04 16:02 | Emergency (ER) | payer MEDICARE, MEDICAID ==
[2018-06-04 16:22] VITALS: BP 130/86
--- NOTE | 2018-06-04 16:37 | ED Physician Documentation ---
PD HPI FEMALE - Stated complaint Stated Complaint: FEMALE - Chief complaint Chief Complaint: UTI - History obtained from History obtained from: Patient - History of Present Illness Timing - onset: Today Timing - duration: Days (1) Timing - details: Gradual onset Pain level max: 2 Pain level max: 2 Associated symptoms: Dysuria, Urinary frequency. No: Abdominal pain, Back pain Similar symptoms before: Diagnosis (UTI) Recently seen: Not recently seen - Additional information Additional information: also needs to be given her risperdone injection. Review of Systems Constitutional: denies: Fever GI: denies: Vomiting : reports: Dysuria, Frequency, Hesitancy Skin: denies: Rash PD PAST MEDICAL HISTORY - Past Medical History Cardiovascular: Hypertension, Atrial fibrillation Respiratory: Asthma GI: GERD, GI bleed, Hiatal hernia, Colon polyps, Chronic constipation, Hemorrhoids : Incontinence Psych: Schizophrenia Musculoskeletal: Other (chronic lower extremity edema) - Past Surgical History Past Surgical History: Yes General: Colonoscopy, EGD, Other (remote exlap of unclear nature, VIH repair with mesh) - Present Medications Home Medications: Ambulatory Orders Medication Instructions Recorded Confirmed raNITIdine HCl [Ranitidine HCl] 150 mg PO BID 08/14/12 03/27/18 Docusate Sodium [Stool Softener] 250 mg PO BID 09/11/12 03/27/18 Ferrous Sulfate [Iron] 325 mg PO TIDWM 09/25/12 03/27/18 Multivitamin [Multivitamins] 1 each PO DAILY 09/25/12 03/27/18 Vitamin E 400 unit PO DAILY 09/25/12 03/27/18 Risperidone Microspheres 37.5 mg IM .[id number] 11/20/12 03/27/18 [Risperdal Consta] Cholecalciferol (Vitamin D3) 2,000 unit PO DAILY 03/18/14 03/27/18 [Vitamin D3] Zinc 50 mg PO DAILY 03/18/14 03/27/18 Diltiazem HCl [Diltiazem 24Hr ER] 180 mg PO DAILY 09/06/16 03/27/18 Metoprolol Tartrate 25 mg PO DAILY 09/06/16 03/27/18 Furosemide [Lasix] 40 mg PO DAILY #30 tablet 07/31/17 03/27/18 Sulfamethox/Trimeth 800/160 1 each PO BID #10 tablet 06/04/18 [Bactrim Ds 800/160] - Allergies Allergies/Adverse Reactions: Allergies Allergy/AdvReac Type Severity Reaction Status Date / Time penicillin G Allergy Intermediate Anaphylaxis Verified 06/04/18 16:22 strawberry [Johnson] Allergy Intermediate Rash Verified 06/04/18 16:22 orange flavor Allergy Rash Verified 06/04/18 16:22 - Social History Does the pt smoke?: No Smoking Status: Never smoker Does the pt drink ETOH?: No Does the pt have substance abuse?: No - Immunizations Immunizations are current?: No Immunizations: TDAP >10years/unknown - POLST Patient has POLST: No PD ED PE NORMAL - Vitals Vital signs reviewed: Yes - General General: Alert and oriented X 3, No acute distress - HEENT HEENT: Moist mucous membranes - Neck Neck: Supple, no meningeal sign - Cardiac Cardiac: RRR - Respiratory Respiratory: No respiratory distress, Clear bilaterally - Abdomen Abdomen: Soft, Non tender, Non distended - Back Back: No CVA TTP, No spinal TTP - Derm Derm: Warm and dry - Neuro Neuro: Alert and oriented X 3 Results - Vitals Vitals: Vital Signs - 24 hr 06/04/18 16:19 Temperature 36.0 C L Heart Rate 58 L Respiratory 14 Rate Blood Pressure 130/86 H O2 Saturation 94 Oxygen O2 Source Room air - Labs Labs: Microbiology 06/04/18 16:32 Urine Culture - Preliminary Urine,Clean Catch Escherichia Coli Laboratory Tests 06/04/18 16:32 Urine Color RED/BLOODY Urine Clarity CLOUDY Urine pH 8.0 H Ur Specific [place] 1.025 Urine Protein 100 H Urine Glucose (UA) NEGATIVE Urine Ketones NEGATIVE Urine Occult Blood LARGE H Urine Nitrite NEGATIVE Urine Bilirubin NEGATIVE Urine Urobilinogen 0.2 (NORMAL) Ur Leukocyte Esterase SMALL H Urine RBC TNTC H Urine WBC 11-25 H Ur Squamous Epith Cells RARE Squamous Urine Bacteria Few Ur Microscopic Review INDICATED Urine Culture Comments INDICATED PD MEDICAL DECISION MAKING - ED course Complexity details: reviewed results, re-evaluated patient, considered differential, d/w patient ED course: Patient with a UTI. Will place on antibiotics. No evidence of pyelonephritis or sepsis. Also given her Risperdal injection. Patient counseled regarding signs and symptoms for which I believe and urgent re-evaluation would be necessary. Patient with good understanding of and agreement to plan and is comfortable going home at this time This document was made in part using voice recognition software. While efforts are made to proofread this document, sound alike and grammatical errors may occur. Departure - Departure Disposition: Home, Self Care Clinical Impression: UTI (urinary tract infection) Qualifiers: Urinary tract infection type: acute cystitis Hematuria presence: without hematuria Qualified Code(s): N30.00 - Acute cystitis without hematuria Condition: Good Instructions: ED UTI Cystitis Female Follow-Up: Veronique Sutton ARNP [Primary Care Provider] - Within 1 week Prescriptions: Sulfamethox/Trimeth 800/160 [Bactrim Ds 800/160] 1 each PO BID #10 tablet Comments: Call antibiotics until gone. Return if you worsen. Discharge Date/Time: 06/04/18 17:20
[2018-06-04] MEDS ORDERED: RISPERDAL CONSTA 37.5 MG IM STA (16:43)
[2018-06-04 16:59] LABS: BILIRUBIN,URINE NEGATIVE (NEGATIVE); GLUCOSE, URINE (UA) NEGATIVE (NEGATIVE); KETONES,URINE (UA) NEGATIVE (NEGATIVE); LEUKOCYTE ESTERASE, URINE SMALL (NEGATIVE); NITRITE,URINE NEGATIVE (NEGATIVE); OCCULT BLOOD,URINE LARGE (NEGATIVE); PROTEIN,URINE 100 mg/dL (NEGATIVE); UROBILINOGEN,URINE 0.2 (NORMAL) E.U./dL (NORMAL)
[2018-06-04 17:08] LABS: CLARITY,URINE CLOUDY (CLEAR)
[2018-06-04 17:09] LABS: BACTERIA,URINE Few /HPF (None Seen); RBC,URINE TNTC /HPF (0-5); SQUAMOUS EPITHELIAL CELL,UR RARE Squamous (<= Few)
== END 2018-06-04 17:20 | disposition home or self-care (01) ==
LOC: ED 16:02
DX: N30.00 Acute cystitis without hematuria (principal); I10 Essential (primary) hypertension
CPT/HCPCS: 81001; 81003; 87086; 87181; 96372; 99283

== ENCOUNTER 2018-07-03 17:59 | Outpatient (CLI) | payer MEDICARE, MEDICAID | END 2018-07-03 18:00 | disposition EMS.NT | LOC: EMS 17:59 | PROVIDERS: ATTEND Surgery | DX: T17.928A Food in respiratory tract, part unspecified causing other injury, initial encounter (principal); R06.02 Shortness of breath; R11.10 Vomiting, unspecified ==

== ENCOUNTER 2018-08-11 22:03 | Outpatient (CLI) | payer MEDICARE, MEDICAID | END 2018-08-11 22:04 | disposition critical access hospital (66) | LOC: EMS 22:03 | PROVIDERS: ATTEND Surgery | DX: R06.02 Shortness of breath (principal) | CPT/HCPCS: A0425; A0429 ==

== ENCOUNTER 2018-08-11 22:16 | Emergency (ER) | payer MEDICARE, MEDICAID ==
[2018-08-11] MEDS: ALBUTEROL NEB 2.5 MG/3 ML INH STA ×2 (22:35→23:57)
[2018-08-11] MEDS ORDERED: ALBUTEROL NEB 2.5 MG/3 ML INH ONE (22:41)
--- NOTE | 2018-08-11 22:45 | ED Physician Documentation ---
History of Present Illness - Stated complaint Stated Complaint: DIFF BREATHING - Chief complaint Chief Complaint: Resp - History obtained from History obtained from: Patient - Additonal information Additional information: Patient is a 77-year-old female with complicated past medical history including hypertension, atrial fibrillation, schizophrenia presenting with about 1 day of worsening shortness of breath and wheezing. Patient reports that she does have a history of asthma, but does not normally use an inhaler or nebulizer. Patient reports that her last asthma flare was many years ago. Patient reports subjective fever without chills, dry cough, wheezing and tightness to her chest. Patient also complains of GERD-like discomfort intermittently. Patient also reports a chronic nonhealing wound to the abdomen around the umbilicus from a previous hernia repair that is otherwise unchanged from baseline. No other improving or worsening factors to her symptoms noted. Review of Systems Constitutional: reports: Fever Respiratory: reports: Dyspnea, Cough PD PAST MEDICAL HISTORY - Past Medical History Past Medical History: No Cardiovascular: Hypertension, Atrial fibrillation Respiratory: Asthma Neuro: None Endocrine/Autoimmune: None GI: GERD, GI bleed, Hiatal hernia, Colon polyps, Chronic constipation, Hemorrhoids PROTOTYPE SEWER: None : Incontinence HEENT: None Psych: Schizophrenia Musculoskeletal: Other Derm: None - Past Surgical History Past Surgical History: Yes General: Colonoscopy, EGD, Other - Present Medications Home Medications: Ambulatory Orders Medication Instructions Recorded Confirmed raNITIdine HCl [Ranitidine HCl] 150 mg PO BID 08/14/12 06/19/18 Docusate Sodium [Stool Softener] 250 mg PO BID 09/11/12 06/19/18 Ferrous Sulfate [Iron] 325 mg PO TIDWM 09/25/12 06/19/18 Multivitamin [Multivitamins] 1 each PO DAILY 09/25/12 06/19/18 Vitamin E 400 unit PO DAILY 09/25/12 06/19/18 Risperidone Microspheres 37.5 mg IM .[id number] 11/20/12 06/19/18 [Risperdal Consta] Cholecalciferol (Vitamin D3) 2,000 unit PO DAILY 03/18/14 06/19/18 [Vitamin D3] Zinc 50 mg PO DAILY 03/18/14 06/19/18 Metoprolol Tartrate 25 mg PO DAILY 09/06/16 06/19/18 dilTIAZem HCl [Diltiazem 24Hr ER 180 mg PO DAILY 09/06/16 06/19/18 (LA)] Furosemide [Lasix] 40 mg PO DAILY #30 tablet 07/31/17 06/19/18 Sulfamethox/Trimeth 800/160 1 each PO BID #10 tablet 06/04/18 06/19/18 [Bactrim Ds 800/160] Albuterol Sulf [Ventolin Hfa 1 - 2 puffs INH Q4HR PRN #1 inhaler 08/12/18 Inhaler] predniSONE [Prednisone] 60 mg PO DAILY #15 tablet 08/12/18 - Allergies Allergies/Adverse Reactions: Allergies Allergy/AdvReac Type Severity Reaction Status Date / Time penicillin G Allergy Intermediate Anaphylaxis Verified 08/11/18 22:24 strawberry [[place]] Allergy Intermediate Rash Verified 08/11/18 22:24 orange flavor Allergy Rash Verified 08/11/18 22:24 - Social History Does the pt smoke?: No Smoking Status: Never smoker Does the pt drink ETOH?: No Does the pt have substance abuse?: No - Immunizations Immunizations are current?: No Immunizations: TDAP >10years/unknown - POLST Patient has POLST: No PD ED PE NORMAL - General General: Alert and oriented X 3, No acute distress, Well developed/nourished - HEENT HEENT: No: Dentition benign (Missing teeth, poor hygiene) - Cardiac Cardiac: RRR, No murmur - Respiratory Respiratory: No respiratory distress, Clear bilaterally (Wheezes upon arrival p er RT, now receiving albuterol neb) - Abdomen Abdomen: Normal bowel sounds, Soft, Non tender, Non distended, Other (Chronic, non-healing wound to umbilicus, mild erythema and drainage present (patient reports baseline)) - Derm Derm: Normal color (Except as stated above), Warm and dry - Extremities Extremities: No deformity - Neuro Neuro: No motor deficit, No sensory deficit - Psych Psych: Normal mood, Normal affect Results - Vitals Vitals: Vital Signs - 24 hr 08/11/18 08/11/18 08/11/18 22:17 22:33 23:19 Temperature 36.7 C 37 C Heart Rate 104 H 78 81 Respiratory 24 18 34 H Rate Blood Pressure 131/85 H 143/82 H O2 Saturation 98 97 08/11/18 23:58 Temperature Heart Rate 80 Respiratory 29 H Rate Blood Pressure O2 Saturation Oxygen O2 Source Room air - EKG (time done) 2251 Rate: Rate (enter#) (86) Rhythm: Atrial fibrillation Intervals: Prolonged QT Ischemia: Non specific changes - Labs Labs: Laboratory Tests 08/11/18 08/11/18 08/11/18 23:29 23:29 23:29 WBC 11.9 H RBC 5.13 Hgb 14.0 Hct 43.6 MCV 84.9 MCH 27.3 MCHC 32.1 RDW 15.0 Plt Count 223 MPV 8.2 Neut # (Auto) 8.9 H Lymph # (Auto) 1.7 [place] # (Auto) 1.2 H Eos # (Auto) 0.1 Baso # (Auto) 0.2 H Absolute Nucleated RBC 0.00 Nucleated RBC % 0.0 Sodium 137 Potassium 3.7 Chloride 97 L Carbon Dioxide 31 Anion Gap 9.0 BUN 15 Creatinine 0.5 Estimated GFR (MDRD) 120 Glucose 109 H Calcium 9.1 Total Bilirubin 0.8 AST 16 ALT 18 Alkaline Phosphatase 126 H Troponin I < 0.04 Total Protein 7.0 Albumin 3.3 Globulin 3.7 Albumin/Globulin Ratio 0.9 L Lipase 21 L PD MEDICAL DECISION MAKING - ED course Complexity details: reviewed old records, reviewed results, re-evaluated patient, considered differential, d/w patient ED course: Patient's presentation is most consistent with an asthma exacerbation. Have low suspicion for pneumonia, but obtain chest x-ray to further evaluate, which returned unremarkable for signs of infection. Patient also reported discomfort, likely due to tightness from asthma exacerbation as opposed to pain from ACS, myocardial infarction, unstable angina. However, obtain EKG and troponin. EKG reflected atrial fibrillation without RVR, which is a known diagnosis for patient. Troponin negative. At this time, do not feel patient requires urgent or emergent cardiac work-up. Patient also discussed acid reflux-like symptoms and feel that could be contributing to her discomfort. Have lower suspicion for PE and do not feel that patient requires d-dimer or CTA at this time. Patient does have nonhealing wound to the abdomen that she reports this is at its baseline and is otherwise followed by her primary care physician. Do not feel this is contributing to her symptoms today requiring other emergent work-up at this time. Patient symptoms improved greatly with therapy and feel that she is safe to discharge home with inhaler and steroids, as well as discussed strict return precautions, supportive cares, and appropriate follow-up. Patient voiced understanding and is comfortable discharge plan. Departure - Departure Disposition: 01 Home, Self Care Clinical Impression: Asthma Qualifiers: Asthma severity: mild Asthma persistence: unspecified Asthma complication type: uncomplicated Qualified Code(s): J45.909 - Unspecified asthma, uncomplicated Condition: Good Instructions: ED Reactive Airway Disease Follow-Up: Shakila Mulligan ARNP [Primary Care Provider] - Within 3 Days Prescriptions: Albuterol Sulf [Ventolin Hfa Inhaler] 1 - 2 puffs INH Q4HR PRN #1 inhaler PRN Reason: Shortness Of Air/Wheezing predniSONE [Prednisone] 60 mg PO DAILY #15 tablet Comments: Please continue all home medications as previously instructed. Please use inhaler and steroids as instructed to help relieve asthma symptoms. Follow-up with primary care physician in next 2 to 3 days and return to ED sooner if expands worsening symptoms or other concerns.
--- NOTE | 2018-08-11 23:31 | XRAY Report ---
Reason: SOB, history of asthma Procedure Date: 08/11/2018 Accession Number: [id number] / [id number] Procedure: XR - Chest 2 View X-Ray CPT Code: 61778 FULL RESULT: EXAM: CHEST RADIOGRAPHY EXAM DATE: 08/11/2018 10:58 PM. CLINICAL HISTORY: Short of breath, history of asthma. COMPARISON: CHEST 2 VIEW PA/LAT 09/06/2016 1:12 PM, CHEST ANGIO 07/30/2017 10:29 PM. TECHNIQUE: 2 views. FINDINGS: Lungs/Pleura: No focal opacities evident. No pleural effusion. No pneumothorax. Normal volumes. Mediastinum: Moderate to large hiatal hernia. Mild cardiomegaly. Other: Arthritic changes in the shoulders, right worse than left. IMPRESSION: 1. No acute process seen in the chest. 2. Mild cardiomegaly. 3. Moderate to large hiatal hernia. RADIA
[2018-08-11 23:36] LABS: BASOPHILS # (AUTO) 0.2 10^3/uL (0.0-0.1); BASOPHILS % (AUTO) 1.3 %; EOSINOPHILS # (AUTO) 0.1 10^3/uL (0.0-0.7); EOSINOPHILS % (AUTO) 0.5 %; LYMPHOCYTES # (AUTO) 1.7 10^3/uL (1.5-3.5); LYMPHOCYTES % (AUTO) 13.9 %; MEAN CORPUSCULAR HEMOGLOBIN 27.3 pg (27.0-31.0); MEAN CORPUSCULAR HGB CONC 32.1 g/dL (32.0-36.0); MEAN CORPUSCULAR VOLUME 84.9 fL (81.0-99.0); MEAN PLATELET VOLUME 8.2 fL (7.9-10.8); MONOCYTES # (AUTO) 1.2 10^3/uL (0.0-1.0); MONOCYTES % (AUTO) 9.6 %; NEUTROPHILS # (AUTO) 8.9 10^3/uL (1.5-6.6); NEUTROPHILS % (AUTO) 74.7 %; PLT - PLATELET COUNT 223 10^3/uL (130-450); RED BLOOD COUNT 5.13 10^6/uL (4.20-5.40); WHITE BLOOD COUNT 11.9 x10^3/uL (4.8-10.8)
[2018-08-11 23:48] LABS: ALBUMIN 3.3 g/dL (3.2-5.5); ALBUMIN/GLOBULIN RATIO 0.9 (1.0-2.2); BILIRUBIN,TOTAL 0.8 mg/dL (0.2-1.0); CALCIUM 9.1 mg/dL (8.5-10.3); CREATININE 0.5 mg/dL (0.4-1.0)
[2018-08-12] MEDS ORDERED: methylPREDNISolone SUCCINATE 125 MG/2 ML VIAL IVP STA (00:01)
[2018-08-12 00:11] VITALS: BP 147/88
== END 2018-08-12 01:00 | disposition home or self-care (01) ==
LOC: ED 22:16
DX: J45.909 Unspecified asthma, uncomplicated (principal); I48.91 Unspecified atrial fibrillation; I45.81 Long QT syndrome; I10 Essential (primary) hypertension
CPT/HCPCS: 36415; 71046; 80053; 83690; 84484; 85025; 93005; 94640; 96374; 99283

== ENCOUNTER 2019-08-13 14:24 | Outpatient (CLI) | payer MEDICARE, MEDICAID | END 2019-08-13 14:25 | disposition EMS.NT | LOC: EMS 14:24 | PROVIDERS: ATTEND Surgery | DX: Z03.89 Encounter for observation for other suspected diseases and conditions ruled out (principal) ==

== ENCOUNTER 2020-03-25 21:24 | Outpatient (CLI) | payer MEDICARE, MEDICAID | END 2020-03-25 21:25 | disposition EMS.NT | LOC: EMS 21:24 | PROVIDERS: ATTEND Surgery | DX: R11.0 Nausea (principal); R05 Cough ==

== ENCOUNTER 2020-03-27 13:16 | Outpatient (CLI) | payer MEDICARE, MEDICAID | END 2020-03-27 13:17 | disposition critical access hospital (66) | LOC: EMS 13:16 | PROVIDERS: ATTEND Surgery | DX: M54.9 Dorsalgia, unspecified (principal); R53.1 Weakness | CPT/HCPCS: A0425; A0429 ==

== ENCOUNTER 2020-03-27 13:47 | Inpatient (IN) | payer MEDICARE, MEDICAID ==
[2020-03-27 14:24] LABS: BASOPHILS % (AUTO) 0.5 %; EOSINOPHILS % (AUTO) 0.2 %; HGB - HEMOGLOBIN 14.5 g/dL (12.0-16.0); LYMPHOCYTES # (AUTO) 0.4 10^3/uL (1.5-3.5); LYMPHOCYTES % (AUTO) 6.1 %; MEAN CORPUSCULAR VOLUME 89.9 fL (81.0-99.0); MEAN PLATELET VOLUME 9.8 fL (7.9-10.8); MONOCYTES # (AUTO) 0.7 10^3/uL (0.0-1.0); MONOCYTES % (AUTO) 11.3 %; NEUTROPHILS # (AUTO) 5.3 10^3/uL (1.5-6.6); NEUTROPHILS % (AUTO) 81.6 %; PLT - PLATELET COUNT 299 10^3/uL (130-450); RED BLOOD COUNT 5.37 10^6/uL (4.20-5.40); RED CELL DISTRIBUTION WIDTH 15.9 % (12.0-15.0); WHITE BLOOD COUNT 6.5 x10^3/uL (4.8-10.8)
--- NOTE | 2020-03-27 14:24 | ED Physician Documentation ---
History of Present Illness - Stated complaint Stated Complaint: BACK PX/LOW O2 - History obtained from History obtained from: Patient, EMS - History of Present Illness Pain level max: 5 Pain level now: 5 - Additonal information Additional information: 79-year-old female with a history of schizophrenia presents to the emergency department complaining of difficulty breathing, back and abdominal pain today. EMS brought the patient to the emergency department. She does not normally use oxygen at home. Today her oxygen sat is around 83. She has a chronic abdominal wall infection. She is unclear about who she is seen for this or who following her for this. No cough. No Covid exposure that she is aware of. [place] visit that I can find was almost a year ago, however she has been having her prescriptions refilled. History of atrial fibrillation, congestive heart failure. 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[id number] 11/20/12 06/19/18 [Risperdal Consta] Cholecalciferol (Vitamin D3) 2,000 unit PO DAILY 03/18/14 06/19/18 [Vitamin D3] Zinc 50 mg PO DAILY 03/18/14 06/19/18 Metoprolol Tartrate 25 mg PO DAILY 09/06/16 06/19/18 dilTIAZem HCl [Diltiazem 24Hr ER 180 mg PO DAILY 09/06/16 06/19/18 ([place])] Furosemide [Lasix] 40 mg PO DAILY #30 tablet 07/31/17 06/19/18 Sulfamethox/Trimeth 800/160 1 each PO BID #10 tablet 06/04/18 06/19/18 [Bactrim Ds 800/160] Albuterol Sulf [Ventolin Hfa 1 - 2 puffs INH Q4HR PRN #1 inhaler 08/12/18 Inhaler] predniSONE [Prednisone] 60 mg PO DAILY #15 tablet 08/12/18 - Allergies Allergies/Adverse Reactions: Allergies Allergy/AdvReac Type Severity Reaction Status Date / Time penicillin G Allergy Intermediate Anaphylaxis Verified 03/27/20 14:19 strawberry [[place]] Allergy Intermediate Rash Verified 03/27/20 14:19 orange flavor Allergy Rash Verified 03/27/20 14:19 - Social History Does the pt smoke?: No Smoking Status: Never smoker Does the pt drink ETOH?: No Does the pt have substance abuse?: No - Immunizations Immunizations are current?: No Immunizations: TDAP >10years/unknown - POLST Patient has POLST: No PD ED PE NORMAL - Vitals Vital signs reviewed: Yes - General General: No acute distress, Well developed/nourished, Other (mildly drowsy, answering questions. oriented to person and place, not to time.) - HEENT HEENT: Moist mucous membranes - Neck Neck: Supple, no meningeal sign - Cardiac Cardiac: RRR - Respiratory Respiratory: No respiratory distress, Clear bilaterally - Abdomen Abdomen: Other (Abdomen and is distended with erythema to the left side of the umbilicus. There is stool draining onto the abdomen. Large palpable hernia on the left side of the abdomen as well) - Derm Derm: Warm and dry - Extremities Extremities: Other (2+ B LE edema,deformity to both feed) - Neuro Neuro: No motor deficit, No sensory deficit - Psych Psych: Normal mood, Normal affect Results - Vitals Vitals: Vital Signs - 24 hr 03/27/20 03/27/2020 14:19 14:51 15:00 Temperature 37.2 C Heart Rate 92 102 H 98 Respiratory 28 H 26 H 22 Rate Blood Pressure 139/80 H 147/77 H 123/99 H O2 Saturation 85 L 93 96 03/27/20 03/27/20 03/27/20 15:49 16:21 17:17 Temperature Heart Rate 109 H 94 Respiratory 18 23 21 Rate Blood Pressure 138/71 H 150/80 H 132/73 H O2 Saturation 92 99 98 03/27/20 03/27/20 03/27/20 17:35 18:00 18:27 Temperature Heart Rate 111 H 104 H 90 Respiratory 22 20 17 Rate Blood Pressure 137/79 H 149/86 H O2 Saturation 94 97 95 03/27/20 03/27/20 03/27/20 18:29 18:30 19:30 Temperature 36.6 C Heart Rate 74 82 94 Respiratory 17 17 14 Rate Blood Pressure 132/66 H 137/77 H 128/55 L O2 Saturation 98 98 100 Oxygen O2 Source Nasal cannula - Labs Labs: Laboratory Tests 03/27/20 03/27/20 03/27/20 14:15 14:15 14:15 WBC 6.5 RBC 5.37 Hgb 14.5 Hct 48.3 H MCV 89.9 MCH 27.0 MCHC 30.0 L RDW 15.9 H Plt Count 299 MPV 9.8 Neut # (Auto) 5.3 Lymph # (Auto) 0.4 L [place] # (Auto) 0.7 Eos # (Auto) 0.0 Baso # (Auto) 0.0 Absolute Nucleated RBC 0.00 Nucleated RBC % 0.0 Sodium 141 Potassium 4.2 Chloride 92 L Carbon Dioxide 39 H* Anion Gap 10.0 BUN 18 Creatinine 0.6 Estimated GFR (MDRD) 97 Glucose 136 H Lactic Acid 1.0 Calcium 9.1 Total Bilirubin 0.7 AST 23 ALT 18 Alkaline Phosphatase 103 B-Natriuretic Peptide Total Protein 7.2 Albumin 3.1 L Globulin 4.1 Albumin/Globulin Ratio 0.8 L Lipase 16 L TSH Urine Color Urine Clarity Urine pH Ur Specific [place] Urine Protein Urine Glucose (UA) Urine Ketones Urine Occult Blood Urine Nitrite Urine Bilirubin Urine Urobilinogen Ur Leukocyte Esterase Ur Microscopic Review Urine Culture Comments Nasal Adenovirus (PCR) Nasal B. parapertussis DNA (PCR) Nasal Coronavir 229E PCR Nasal Coronavir HKU1 PCR Nasal Coronavir NL63 PCR Nasal Coronavir OC43 PCR Nasal Enterovir/Rhinovir PCR Nasal Influenza B PCR Nasal Influenza A PCR Nasal Parainfluen 1 PCR Nasal Parainfluen 2 PCR Nasal Parainfluen 3 PCR Nasal Parainfluen 4 PCR Nasal RSV (PCR) Nasal B.pertussis DNA PCR Nasal C.pneumoniae (PCR) [place] Human Metapneumo PCR Nasal M.pneumoniae (PCR) Nasal SARS-CoV-2 (PCR) 03/27/20 03/27/20 03/27/20 14:15 14:15 14:53 WBC RBC Hgb Hct MCV MCH MCHC RDW Plt Count MPV Neut # (Auto) Lymph # (Auto) [place] # (Auto) Eos # (Auto) Baso # (Auto) Absolute Nucleated RBC Nucleated RBC % Sodium Potassium Chloride Carbon Dioxide Anion Gap BUN Creatinine Estimated GFR (MDRD) Glucose Lactic Acid Calcium Total Bilirubin AST ALT Alkaline Phosphatase B-Natriuretic Peptide 508 H Total Protein Albumin Globulin Albumin/Globulin Ratio Lipase TSH 2.06 Urine Color Urine Clarity Urine pH Ur Specific [place] Urine Protein Urine Glucose (UA) Urine Ketones Urine Occult Blood Urine Nitrite Urine Bilirubin Urine Urobilinogen Ur Leukocyte Esterase Ur Microscopic Review Urine Culture Comments Nasal Adenovirus (PCR) NOT DETECTED Nasal B. parapertussis DNA (PCR) NOT DETECTED Nasal Coronavir 229E PCR NOT DETECTED Nasal Coronavir HKU1 PCR NOT DETECTED Nasal Coronavir NL63 PCR NOT DETECTED Nasal Coronavir OC43 PCR NOT DETECTED Nasal Enterovir/Rhinovir PCR NOT DETECTED Nasal Influenza B PCR NOT DETECTED Nasal Influenza A PCR NOT DETECTED Nasal Parainfluen 1 PCR NOT DETECTED Nasal Parainfluen 2 PCR NOT DETECTED Nasal Parainfluen 3 PCR NOT DETECTED Nasal Parainfluen 4 PCR NOT DETECTED Nasal RSV (PCR) NOT DETECTED Nasal B.pertussis DNA PCR NOT DETECTED Nasal C.pneumoniae (PCR) NOT DETECTED [place] Human Metapneumo PCR NOT DETECTED Nasal M.pneumoniae (PCR) NOT DETECTED Nasal SARS-CoV-2 (PCR) NOT DETECTED 03/27/20 16:18 WBC RBC Hgb Hct MCV MCH MCHC RDW Plt Count MPV Neut # (Auto) Lymph # (Auto) [place] # (Auto) Eos # (Auto) Baso # (Auto) Absolute Nucleated RBC Nucleated RBC % Sodium Potassium Chloride Carbon Dioxide Anion Gap BUN Creatinine Estimated GFR (MDRD) Glucose Lactic Acid Calcium Total Bilirubin AST ALT Alkaline Phosphatase B-Natriuretic Peptide Total Protein Albumin Globulin Albumin/Globulin Ratio Lipase TSH Urine Color YELLOW Urine Clarity CLEAR Urine pH 7.0 Ur Specific [place] 1.015 Urine Protein TRACE Urine Glucose (UA) NEGATIVE Urine Ketones TRACE Urine Occult Blood NEGATIVE Urine Nitrite NEGATIVE Urine Bilirubin NEGATIVE Urine Urobilinogen 0.2 (NORMAL) Ur Leukocyte Esterase NEGATIVE Ur Microscopic Review NOT INDICATED Urine Culture Comments NOT INDICATED Nasal Adenovirus (PCR) Nasal B. parapertussis DNA (PCR) Nasal Coronavir 229E PCR Nasal Coronavir HKU1 PCR Nasal Coronavir NL63 PCR Nasal Coronavir OC43 PCR Nasal Enterovir/Rhinovir PCR Nasal Influenza B PCR Nasal Influenza A PCR Nasal Parainfluen 1 PCR Nasal Parainfluen 2 PCR Nasal Parainfluen 3 PCR Nasal Parainfluen 4 PCR Nasal RSV (PCR) Nasal B.pertussis DNA PCR Nasal C.pneumoniae (PCR) [place] Human Metapneumo PCR Nasal M.pneumoniae (PCR) Nasal SARS-CoV-2 (PCR) - [facility] (name of study) CT abdomen pelvis Radiology: Prelim report reviewed, EMP read contemporaneously, See rad report Chest x-ray Radiology: Prelim report reviewed, EMP read contemporaneously, See rad report (Minimal bibasilar streaky opacity favored represent atelectasis. 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 She presents to the emergency department with abdominal pain and back pain. She is found to have a small bowel obstruction secondary to an incarcerated hernia. She was vomiting. The hernia was reduced in the emergency department and vomiting resolved. She remains persistently hypoxic and requires supplemental oxygen. She states she does not use oxygen at home and has not been hypoxic before. Question etiology of the hypoxia. She appears to be retaining CO2 as well. We will admit the patient for hypoxemia and further care. Surgery consulted about the abdomen, states no intervention at this time. The fistula can be followed up as an outpatient. Dr. Harvey was consulted. Dr. Bailey accepts for observation for the hospitalist service. Patient was also given diltiazem for her atrial fibrillation with rapid ventricular response. Heart rate controlled. IMPRESSION: 1. Left paramedial ventral hernia containing small and large bowel causing a small bowel obstruction. 2. 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 3. Ventral midline fat-containing hernia. 4. Bibasilar atelectasis and small pleural effusions. 4. Cholelithiasis without evidence of cholecystitis. Departure - Departure Disposition: ED Place in Observation Clinical Impression: Hypoxemia, Atrial fibrillation with RVR Atrial fibrillation Qualifiers: Atrial fibrillation type: unspecified Qualified Code(s): I48.91 - Unspecified atrial fibrillation Ventral hernia Qualifiers: Obstruction and gangrene presence: without obstruction or gangrene Qualified Code(s): K43.9 - Ventral hernia without obstruction or gangrene Condition: Stable Discharge Date/Time: 03/27/20 20:51
[2020-03-27] MEDS ORDERED: IOVERSOL 320 50 ML VIAL ONE (14:29)
[2020-03-27] MEDS ORDERED: IOVERSOL 320 100 ML VIAL IVP ONE ×2 (14:29→15:37)
--- NOTE | 2020-03-27 14:35 | XRAY Report ---
PROCEDURE: Chest 1 View X-Ray INDICATIONS: chest pain TECHNIQUE: One view of the chest was acquired. COMPARISON: CXR 08/11/2018. FINDINGS: Surgical changes and devices: None. Lungs and pleura: No pleural effusions or pneumothorax. Minimal bibasilar streaky opacity. Mediastinum: Mediastinal contours are not significantly changed accounting for rotation. Aortic arch arthroscopic calcifications. Heart size is prominent. Bones and chest wall: No suspicious bony lesions. Scoliosis. Overlying soft tissues appear unremarka ble. IMPRESSION: Minimal bibasilar streaky opacity favored represent atelectasis. Cardiomegaly. Reviewed by: Devin Belle MD on 03/27/2020 1:33 PM [facility] Approved by: Devin Belle MD on 03/27/2020 1:33 PM [facility] Station ID: [id number]
[2020-03-27 14:40] LABS: ALBUMIN 3.1 g/dL (3.2-5.5); ALBUMIN/GLOBULIN RATIO 0.8 (1.0-2.2); BILIRUBIN,TOTAL 0.7 mg/dL (0.2-1.0); CALCIUM 9.1 mg/dL (8.5-10.3); CREATININE 0.6 mg/dL (0.4-1.0); TOTAL PROTEIN 7.2 g/dL (6.7-8.2)
[2020-03-27] MEDS ORDERED: ONDANSETRON 4 MG/2 ML VIAL IVP STA (14:58)
[2020-03-27] MEDS ORDERED: ONDANSETRON 4 MG/2 ML VIAL ONE (15:07)
--- NOTE | 2020-03-27 15:35 | CONSULTATION NOTE ---
Referring Provider Consult Date: 03/27/20 History of Present Illness - Admitted From Admitted From:: Seen in ED with stool drainage from abdomen - History Obtained From Records Reviewed: yes History obtained from: records - History of Present Illness HPI Comment/Other: She has schizophrenia and currently is not communicating. She is seen in the ED. No distress. She appears weak but comfortable. By chart review she had periumbilical hernia repairs from 2007 to 2011. Last was done in 2011 at [facility]. She had chronic wound mesh infections. By chart review she was seen at the in 2014 for chronic wound and drainage related to prior hernia repair. Surgery with removal of the mesh was offered and recommended. She declined. On review of ct 2017 she had an abdominal wall fistula at that time History - Past Medical History Cardiovascular: reports: Hypertension, Atrial fibrillation Respiratory: reports: Asthma Neuro: reports: None Endocrine/Autoimmune: reports: None GI: reports: GERD, GI bleed, Hiatal hernia, Colon polyps, Chronic constipation, Hemorrhoids NUT FORMER: reports: None : reports: Incontinence HEENT: reports: None Psych: reports: Schizophrenia Musculoskeletal: reports: Other Derm: reports: None MRSA Hx?: Yes - Past Surgical History General: reports: Colonoscopy, EGD, Other - Family & Social History Family History Comment/Other: Neg for GI tumors - Substance History Use: Uses substance without health or social issues: NONE - POLST Patient has POLST: No Meds/Allgy - Home Medications Home Medications: Ambulatory Orders Medication Instructions Recorded Confirmed raNITIdine HCL [Ranitidine HCl] 150 mg PO BID 08/14/12 06/19/18 Docusate Sodium [Stool Softener] 250 mg PO BID 09/11/12 06/19/18 Ferrous Sulfate [Iron] 325 mg PO TIDWM 09/25/12 06/19/18 Multivitamin [Multivitamins] 1 each PO DAILY 09/25/12 06/19/18 Vitamin E 400 unit PO DAILY 09/25/12 06/19/18 Risperidone Microspheres 37.5 mg IM .[id number] 11/20/12 06/19/18 [Risperdal Consta] Cholecalciferol (Vitamin D3) 2,000 unit PO DAILY 03/18/14 06/19/18 [Vitamin D3] Zinc 50 mg PO DAILY 03/18/14 06/19/18 Metoprolol Tartrate 25 mg PO DAILY 09/06/16 06/19/18 dilTIAZem HCl [Diltiazem 24Hr ER 180 mg PO DAILY 09/06/16 06/19/18 (LA)] Furosemide [Lasix] 40 mg PO DAILY #30 tablet 07/31/17 06/19/18 Sulfamethox/Trimeth 800/160 1 each PO BID #10 tablet 06/04/18 06/19/18 [Bactrim Ds 800/160] Albuterol Sulf [Ventolin Hfa 1 - 2 puffs INH Q4HR PRN #1 inhaler 08/12/18 Inhaler] predniSONE [Prednisone] 60 mg PO DAILY #15 tablet 08/12/18 - Allergies Allergies/Adverse Reactions: Allergies Allergy/AdvReac Type Severity Reaction Status Date / Time penicillin G Allergy Intermediate Anaphylaxis Verified 03/27/20 14:19 strawberry [[place]] Allergy Intermediate Rash Verified 03/27/20 14:19 orange flavor Allergy Rash Verified 03/27/20 14:19 Review of Systems - Constitutional Constitutional: reports: Fatigue (ros as above possible history chf by chart review) Exam - Vital Signs Vital Signs: Vital Signs x48h Temp Pulse Resp BP Pulse Ox 03/27/20 14:51 102 H 26 H 147/77 H 93 03/27/20 14:19 37.2 C 92 28 H 139/80 H 85 L - Physical Exam General Appearance: positive: No acute distress, Other (eyes are open, she appears comfortable, awake, no distress. she is not talking or communicating) Eyes Bilateral: positive: Normal inspection, PERRL ENT: positive: No signs of dehydration Neck: positive: No JVD Respiratory: positive: No respiratory distress Abdomen: positive: Non-tender, No distention, Other (midline periumbilical scar. nylon suture present. scant thin fecalent drainage from small opening in midline. palpable mesh and bowel present directly under skin. mild erythema left of the umbilicus. no induration) Conclusion and Plan - Lab Results Laboratory Results 03/27/20 14:15: B-Natriuretic Peptide 508 H 03/27/20 14:15: Lactic Acid 1.0 03/27/20 14:15: Sodium 141, Potassium 4.2, Chloride 92 L, Carbon Dioxide 39 H*, Anion Gap 10.0, BUN 18, Creatinine 0.6, Estimated GFR (MDRD) 97, Glucose 136 H, Calcium 9.1, Total Bilirubin 0.7, AST 23, ALT 18, Alkaline Phosphatase 103, Total Protein 7.2, Albumin 3.1 L, Globulin 4.1, Albumin/Globulin Ratio 0.8 L, Lipase 16 L // 14:15: WBC 6.5, RBC 5.37, Hgb 14.5, Hct 48.3 H, MCV 89.9, MCH 27.0, MCHC 30.0 L, RDW 15.9 H, Plt Count 299, MPV 9.8, Neut # (Auto) 5.3, Lymph # (Auto) 0.4 L, [place] # (Auto) 0.7, Eos # (Auto) 0.0, Baso # (Auto) 0.0, Absolute Nucleated RBC 0.00, Nucleated RBC % 0.0 - Diagnostic Imaging Results Diagnostic Imaging Results: positive: Read independently - Diagnosis Diagnosis: schizophrenia. chronic abdominal wound - Plan Plan: She has a chronic abdominal wound dating back to atleast 2007. She had another hernia surgery in 2011 and had developed a fistula by 2018. By chart review she was seen at the in 2014 and abdominal wall surgery was offered. She declined surgery at that time. She does not have abdominal wall sepsis. she does not require urgent surgery, drainage, debridement. She has mild abdominal wall erythema. Could be reactive and given normal wbc observation is fine. She does not need to be admitted from a surgical standpoint. Diet of Choice. She should follow up with the when her general health allows
[2020-03-27] MEDS ORDERED: IOVERSOL 320 50 ML VIAL PO ONE (15:37)
[2020-03-27 16:21] LABS: C. PNEUMONIAE- RESP PCR PANEL NOT DETECTED
--- NOTE | 2020-03-27 16:25 | CT Report ---
PROCEDURE: Abdomen/Pelvis W INDICATIONS: abd pain, draining wound from the abdominal wall CONTRAST: IV CONTRAST: Optiray 320 ml: 100 PO CONTRAST: Optiray 320 ml50 TECHNIQUE: After the administration of 100 mL contrast, 5 mm thick sections acquired from the diaphragms to the symphysis. 5 mm thick coronal and sagittal reformats were acquired. For radiation dose reduction, t he following was used: automated exposure control, adjustment of mA and/or kV according to patient s ize. COMPARISON: None. FINDINGS: Image quality: Excellent. ABDOMEN: Lung bases: There are small bilateral pleural effusions and left basilar atelectasis.. Heart size is enlarged. Solid organs: Liver and spleen are normal in size and enhancement. Gallbladder is contracted on a 1 .5 cm gallstone. Biliary system is non dilated. Pancreas enhances normally. No adrenal nodules. K idneys demonstrate normal size and enhancement, without hydronephrosis. Peritoneum and bowel: There is a small and large bowel containing ventral hernia to the left of midli ne with a 5 cm neck causing small bowel obstruction with distention of most of the small bowel and st omach. The right and transverse colon contains stool and the left colon and rectum are decompressed. There is diverticulosis with no evidence of diverticulitis. Superior to this hernia in the midline th ere is a fat-containing hernia. To the right of the paracentral hernia and inferior to the fat-contai nelson hernia above there is a 6 x 3 x 2 cm heterogenous collection of fluid and air, likely an abscess which is draining to the skin consistent with a fistula. There is fluid in the inferior mediastinum to the right of the esophagus, likely related to the right pleural effusion. Nodes and vessels: No retroperitoneal or mesenteric adenopathy by size criteria. Aorta and inferior vena cava are normal in size. Miscellaneous: No ventral hernias. PELVIS: Genitourinary: Bladder wall thickness is normal. Miscellaneous: No inguinal hernias or adenopathy. Bones: Severe scoliosis and multilevel degenerative changes. IMPRESSION: 1. Left paramedial ventral hernia containing small and large bowel causing a small bowel obstruction. 2. 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 3. Ventral midline fat-containing hernia. 4. Bibasilar atelectasis and small pleural effusions. 4. Cholelithiasis without evidence of cholecystitis. Reviewed by: Martín Hernandez on 03/27/2020 4:24 PM PST Approved by: Martín Hernandez on 03/27/2020 4:24 PM PST Station ID: [id number]
[2020-03-27 16:26] LABS: BILIRUBIN,URINE NEGATIVE (NEGATIVE); GLUCOSE, URINE (UA) NEGATIVE (NEGATIVE); KETONES,URINE (UA) TRACE mg/dL (NEGATIVE); LEUKOCYTE ESTERASE, URINE NEGATIVE (NEGATIVE); NITRITE,URINE NEGATIVE (NEGATIVE); OCCULT BLOOD,URINE NEGATIVE (NEGATIVE); PROTEIN,URINE TRACE mg/dL (NEGATIVE); UROBILINOGEN,URINE 0.2 (NORMAL) E.U./dL (NORMAL)
[2020-03-27 16:30] LABS: CLARITY,URINE CLEAR (CLEAR)
[2020-03-27] MEDS ORDERED: diltiaZEM INJ 5 MG/ML VIAL IVP STA (18:03)
[2020-03-27] MEDS ORDERED: FUROSEMIDE 40 MG/4 ML VIAL IVP STA (19:32)
[2020-03-27] MEDS ORDERED: SODIUM CHLORIDE FLUSH 0.9% 10 ML SYRINGE IVP PRN (19:39)
[2020-03-27] MEDS ORDERED: ONDANSETRON 4 MG/2 ML VIAL IVP PRN (19:39)
--- NOTE | 2020-03-27 19:43 | HISTORY & PHYSICAL EXAMINATION ---
Chief Complaint - Chief Complaint Chief Complaint: Nause, vomiting. History of Present Illness - Admitted From Admitted From:: Home - History Obtained From Records Reviewed: Yes History obtained from: ER Physician, EMR Exam Limitations: Patient is altered and unable to provide a history. - History of Present Illness HPI Comment/Other: This is a 79-year-old female with a past medical history significant for chronic heart failure with preserved ejection fraction, schizophrenia, chronic abdominal wound infection, ventral hernia, atrial fibrillation on Eliquis who presents today complaining of back pain along with nausea and vomiting. History is obtained emergency room provider and EMR as the patient is somnolent and unable to provide a history. The patient reportedly presented due to fatigue and nausea and vomiting as mentioned above. She was found to have a small bowel obstruction on imaging likely due to the ventral hernia. This was reduced in the emergency department and she is able to tolerate a diet after that. She does have a known chronic abdominal wound infection with a fistula. She was evaluated by general surgery in the emergency department who felt that there are no acute surgical needs at this time and that she should follow up with the [facility] for further care. The patient then went into atrial fibrillation with rapid ventricular response with heart rate in the 120s. She is given diltiazem IV with improvement. She was noted to be persistently hypoxic in the low to mid 80s requiring 2 L of oxygen via nasal cannula to maintain an oxygen saturation greater than 92%. Given her ongoing hypoxia, chest x-ray was obtained which was relatively unremarkable except for some mild atelectasis. Given her ongoing hypoxia, medicine was consulted for admission. Once again, I am unable to obtain any history from the patient as her speech is incoherent and she just mumbles words. She is obviously quite altered and speaking to the emergency department provider and staff, she was more responsive initially upon their evaluation. Due to her altered mental status, I could not confirm her CODE STATUS as she does not have capacity to make a decision at this time. History - Past Medical History Cardiovascular: reports: Hypertension, Atrial fibrillation Respiratory: reports: Asthma Neuro: reports: None Endocrine/Autoimmune: reports: None GI: reports: GERD, GI bleed, Hiatal hernia, Colon polyps, Chronic constipation, Hemorrhoids [employer]: reports: None : reports: Incontinence HEENT: reports: None Psych: reports: Schizophrenia Musculoskeletal: reports: Other Derm: reports: None MRSA Hx?: Yes - Past Surgical History General: reports: Colonoscopy, EGD, Other - Family & Social History Family History Comment/Other: She is unable to provide me with her family history. Living arrangement: At home Living Situation: Alone Social History Notes: She reportedly lives alone and is checked on by her neighbors. I am unable to obtain further social history but review of prior records reveal that she is reportedly a non-smoker. - Substance History Use: Uses substance without health or social issues: NONE - POLST Patient has POLST: No Meds/Allgy - Home Medications Home Medications: Ambulatory Orders Medication Instructions Recorded Confirmed raNITIdine HCL [Ranitidine HCl] 150 mg PO BID 08/14/12 06/19/18 Docusate Sodium [Stool Softener] 250 mg PO BID 09/11/12 06/19/18 Ferrous Sulfate [Iron] 325 mg PO TIDWM 09/25/12 06/19/18 Multivitamin [Multivitamins] 1 each PO DAILY 09/25/12 06/19/18 Vitamin E 400 unit PO DAILY 09/25/12 06/19/18 Risperidone Microspheres 37.5 mg IM .[id number] 11/20/12 06/19/18 [Risperdal Consta] Cholecalciferol (Vitamin D3) 2,000 unit PO DAILY 03/18/14 06/19/18 [Vitamin D3] Zinc 50 mg PO DAILY 03/18/14 06/19/18 Metoprolol Tartrate 25 mg PO DAILY 09/06/16 06/19/18 dilTIAZem HCl [Diltiazem 24Hr ER 180 mg PO DAILY 09/06/16 06/19/18 (LA)] Furosemide [Lasix] 40 mg PO DAILY #30 tablet 07/31/17 06/19/18 Sulfamethox/Trimeth 800/160 1 each PO BID #10 tablet 06/04/18 06/19/18 [Bactrim Ds 800/160] Albuterol Sulf [Ventolin Hfa 1 - 2 puffs INH Q4HR PRN #1 inhaler 08/12/18 Inhaler] predniSONE [Prednisone] 60 mg PO DAILY #15 tablet 08/12/18 - Allergies Allergies/Adverse Reactions: Allergies Allergy/AdvReac Type Severity Reaction Status Date / Time penicillin G Allergy Intermediate Anaphylaxis Verified 03/27/20 14:19 strawberry [[place]] Allergy Intermediate Rash Verified 03/27/20 14:19 orange flavor Allergy Rash Verified 03/27/20 14:19 Review of Systems - All Other Systems All Other Systems: reports: Other (I am unable to obtain review of systems due to her altered mental status.) Prior Level of Functionality: She reportedly lives alone and is checked on by her neighbors. Exam - Vital Signs Reviewed Vital Signs: Yes Vital Signs: Vital Signs x48h Temp Pulse Resp BP Pulse Ox 03/27/20 18:30 82 17 137/77 H 98 03/27/20 18:29 74 17 132/66 H 98 03/27/20 18:27 90 17 95 03/27/20 18:00 104 H 20 149/86 H 97 03/27/20 17:35 111 H 22 137/79 H 94 03/27/20 17:17 94 21 132/73 H 98 03/27/20 16:21 109 H 23 150/80 H 99 03/27/20 15:49 18 138/71 H 92 03/27/20 15:00 98 22 123/99 H 96 03/27/20 14:51 102 H 26 H 147/77 H 93 03/27/20 14:19 37.2 C 92 28 H 139/80 H 85 L - Physical Exam General Appearance: positive: Lethargic, Other (She is lethargic but will wake up when spoken to. Her speech is mumbled and incoherent. She will quickly fall back to sleep.) Eyes Bilateral: positive: Normal inspection, PERRL, Conjunctivae nml ENT: positive: Other (Poor oral dentition.) Neck: positive: Nml inspection, Other (Nasal cannula in place.) Respiratory: positive: No respiratory distress, Other (Breath sounds are diminished throughout. No obvious rhonchi or wheezing. Her chest wall is protruded and this is most prominent at the superior aspect of the sternum. No obvious tenderness). negative: Wheezes, Rales Cardiovascular: positive: Irregularly irregular. negative: Tachycardia, Bradycardia, Systolic murmur Abdomen: positive: Non-tender, Other (Large 8 x 5 cm left sided ventral hernia noted. Dressing is in place over the midline where the fistula is present. There is minimal surrounding erythema.). negative: Tenderness, Guarding, Rebound, Abnml bowel sounds Skin: positive: Warm, Dry Extremities: positive: Pedal edema (She has +1 to +2 pitting edema in the bilateral lower extremities.), Other (She has multiple deformities of her bilateral feet.) Neurologic/Psychiatric: positive: Other (She is able to move all 4 extremities. Her speech is mumbled and incoherent and unable to assess for disorientation and she does attempt to speak when spoken to.) Conclusion/Plan - Problem List (1) Altered mental status Conclusion/Plan: She is altered right now and unable to provide a history. She is quite somnolent and does attempt to answer questions but she is just mumbling and is incoherent. She was reportedly more awake earlier on during her observation in the emergency department. I am concerned this may be due to hypercapnia and so we will obtain a stat ABG. Although she has no focal deficits on exam is able to move all 4 extremities, will obtain a CT of the head given she is on anticoagulation. We will check ammonia level. Check TSH. If there is evidence of hypercapnia then she will need BiPAP. Qualifiers: Altered mental status type: somnolence Qualified Code(s): R40.0 - Somnolence (2) Hypoxemia Conclusion/Plan: She is hypoxic on room air desaturating to the low 80s. She does have a history of diastolic heart failure but her chest x-ray does not reveal pulmonary vascular congestion. Her BNP is elevated in the 500s but this appears stable compared to prior values. She does have lower extremity edema which also ap pears to be chronic. I am concerned that she may have obesity hypoventilation syndrome which may be contributing to her hypoxia given her bicarbonate is chronically elevated. She did receive a dose of IV Lasix in the emergency department. At this time, we will hold off on further Lasix. We will continue submental oxygen for goal saturation greater than 88 to 92%. We will check a stat ABG. We will start her on spirometry 3 times daily. (3) Atrial fibrillation with RVR Conclusion/Plan: She was in A. fib with RVR in the emergency department. She responded well to IV diltiazem. Her heart rate has improved to the 90s. We will continue her home diltiazem and metoprolol. We will continue her Eliquis as soon as we ensure there is no evidence of intracranial hemorrhage. Monitor on telemetry. (4) Ventral hernia Conclusion/Plan: This is chronic. She did present with nausea and vomiting and there was concern for obstruction on imaging. Her hernia has since been reduced and she was able to tolerate a diet in the emergency department. She was also evaluated by general surgery. At this time, this is stable we will place her on a soft diet. We will advance her diet as tolerated. Zofran IV as needed for nausea. 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 She was previou sly followed by wound care at the [facility] as well as the [facility]. At this time, there is no indication of active infection. She was evaluated by general surgery who recommended continued wound care and outpatient follow-up with the [facility]. We will consult wound care here tomorrow. Qualifiers: Encounter type: subsequent encounter Qualified Code(s): S31.109D - Unspecified open wound of abdominal wall, unspecified quadrant without penetration into peritoneal cavity, subsequent encounter; L08.9 - Local infection of the skin and subcutaneous tissue, unspecified; L08.9 - Local infection of the skin and subcutaneous tissue, unspecified (6) Chronic heart failure with preserved ejection fraction Conclusion/Plan: She has history of heart failure with preserved ejection fraction. There is no echocardiogram available in our EMR. As mentioned above, she does not appear to be in overt heart failure. X-ray does not reveal pulmonary vascular congestion and her BNP is at baseline. She is already received IV Lasix in the emergency department. We will recheck a BNP in the morning. Will reassess her tomorrow to see if she needs further IV diuretics or if her home oral Lasix can be resumed. (7) Obesity (BMI 30-39.9) Conclusion/Plan: Her BMI is 37. I Am concerned for obesity hypoventilation syndrome. We will place a nutrition consult. She will need an outpatient sleep study. (8) Schizophrenia Conclusion/Plan: She is reportedly on risperidone which she receives every 2 weeks. We will confirm with pharmacy when she last received her dose. Will place social work consult to ensure that she has a safe discharge plan. Qualifiers: Schizophrenia type: unspecified Qualified Code(s): F20.9 - Schizophrenia, unspecified - Lab Results Lab results reviewed: Yes Fish Bones: 03/28/20 04:37 03/28/20 04:37 - Diagnostic Imaging Results Diagnostic Imaging Results: positive: Final report reviewed Core Measures - Anticipated LOS I expect patient to be DC'd or transferred within 96 hours.: Yes - Issues Hospital Issues and Management Plan: 79-year-old female presents with nausea and vomiting and a small bowel obstruction. This resolved in the emergency department but she was noted to be hypoxic and somnolent. She will be admitted for further work-up of her hypoxia and altered mental status. - DVT/VTE - Prophylaxis VTE/DVT Device ordered at admit?: No VTE/DVT Prophylaxis med ordered at admit?: Yes
[2020-03-27 21:05] LABS: ABG PH 7.25 (7.35-7.45); ABG PO2 87 mmHg (80-100)
[2020-03-27 21:06] LABS: ABG BASE EXCESS 7.7 mmol/L (-2.0-3.0); ABG HCO3 39.1 mmol/L (22.0-26.0); ABG OXYGEN SATURATION 95 % (94-98); ALLEN TEST POSITIVE
[2020-03-27 21:09] LABS: ABG PCO2 92 mmHg (34-45); ABG TCO2 41.9 MMOL/L (21.0-29.0)
--- NOTE | 2020-03-27 21:19 | CT Report ---
PROCEDURE: HEAD WO INDICATIONS: Altered mental status. TECHNIQUE: Noncontrast 4.5 mm thick angled axial sections acquired from the foramen magnum to the vertex. For r adiation dose reduction, the following was used: automated exposure control, adjustment of mA and/or kV according to patient size. COMPARISON: None. FINDINGS: Image quality: Excellent. CSF spaces: Basal cisterns are patent. No extra-axial fluid collections. Ventricles are normal in size and shape. Brain: No midline shift. No intracranial masses or hemorrhage. [place]-white matter interface is norm al. Skull and face: Calvarium and visualized facial bones are intact, without suspicious lesions. Sinuses: Visualized sinuses and mastoids are clear. IMPRESSION: No acute intracranial abnormality. Reviewed by: Martín Hernandez on 03/27/2020 9:18 PM [facility] Approved by: Martní Hernandez on 03/27/2020 9:18 PM [facility] Station ID: [id number]
[2020-03-27] MEDS: APIXABAN 5 MG TABLET PO SCH (21:58)
[2020-03-27] MEDS: METOPROLOL TARTRATE 25 MG TABLET PO SCH (21:58)
[2020-03-27] MEDS: METOPROLOL 5 MG/5 ML VIAL IVP SCH (22:38)
[2020-03-27 23:44] LABS: ABG PH 7.31 (7.35-7.45)
[2020-03-27 23:45] LABS: ABG BASE EXCESS 8.7 mmol/L (-2.0-3.0); ABG HCO3 38.3 mmol/L (22.0-26.0); ABG OXYGEN SATURATION 92 % (94-98); ABG PO2 67 mmHg (80-100); ALLEN TEST POSITIVE
[2020-03-27 23:46] LABS: ABG PCO2 78 mmHg (34-45); ABG TCO2 40.6 MMOL/L (21.0-29.0)
[2020-03-28] MEDS: SODIUM CHLORIDE FLUSH 0.9% 10 ML SYRINGE IVP SCH ×3 (00:49→16:05)
[2020-03-28 04:43] LABS: BASOPHILS % (AUTO) 0.2 %; EOSINOPHILS % (AUTO) 0.2 %; LYMPHOCYTES # (AUTO) 0.4 10^3/uL (1.5-3.5); LYMPHOCYTES % (AUTO) 8.6 %; MEAN CORPUSCULAR HEMOGLOBIN 26.9 pg (27.0-31.0); MEAN CORPUSCULAR HGB CONC 28.7 g/dL (32.0-36.0); MEAN CORPUSCULAR VOLUME 93.6 fL (81.0-99.0); MEAN PLATELET VOLUME 9.9 fL (7.9-10.8); MONOCYTES # (AUTO) 0.6 10^3/uL (0.0-1.0); MONOCYTES % (AUTO) 14.1 %; NEUTROPHILS # (AUTO) 3.2 10^3/uL (1.5-6.6); NEUTROPHILS % (AUTO) 76.7 %; PLT - PLATELET COUNT 287 10^3/uL (130-450); RED BLOOD COUNT 4.84 10^6/uL (4.20-5.40); RED CELL DISTRIBUTION WIDTH 15.8 % (12.0-15.0); WHITE BLOOD COUNT 4.2 x10^3/uL (4.8-10.8)
[2020-03-28] MEDS: METOPROLOL 5 MG/5 ML VIAL IVP SCH ×3 (04:51→16:05)
[2020-03-28 04:53] LABS: CALCIUM 8.5 mg/dL (8.5-10.3); CREATININE 0.8 mg/dL (0.4-1.0); MAGNESIUM 2.4 mg/dL (1.7-2.8)
[2020-03-28 05:51] LABS: ABG HCO3 40.5 mmol/L (22.0-26.0); ABG PH 7.35 (7.35-7.45); ABG PO2 69 mmHg (80-100)
[2020-03-28 05:52] LABS: ABG BASE EXCESS 11.7 mmol/L (-2.0-3.0); ABG OXYGEN SATURATION 94 % (94-98); ALLEN TEST POSITIVE
[2020-03-28 05:53] LABS: ABG PCO2 75 mmHg (34-45); ABG TCO2 42.8 MMOL/L (21.0-29.0)
[2020-03-28] MEDS: METOPROLOL TARTRATE 25 MG TABLET PO SCH ×2 (08:33→20:56)
[2020-03-28] MEDS: diltiaZEM CD 180 MG CAPSULE PO SCH (08:34)
[2020-03-28] MEDS: APIXABAN 5 MG TABLET PO SCH ×2 (08:35→20:55)
--- NOTE | 2020-03-28 09:39 | PROVIDER PROGRESS NOTE ---
Subjective - Prog Note Date Prog Note Date: 03/28/20 Prog Note Time: 09:38 - Subjective Pt reports feeling: No change Subjective: Patient is alert and oriented but delusional. Very difficult to obtain answers from her. She was not able to tell me if she felt better or worse today. She denied being short of breath even though she was saturating in the 80s without her BiPAP. When asked if she recalled what happened yesterday before she came into the emergency room, she told me her back was hurting and then started to ramble about a different topic. She was not able to tell me how she cares for herself at home and only told me she lives by herself with her cats. She did mention that her feet is a lot more swollen than she remember and is now painful. Current Medications - Current Medications Current Medications: Active Medications Generic Name Dose Route Start Last Admin Trade Name Freq PRN Reason Stop Dose Admin Acetaminophen 650 mg 03/27/20 19:39 Acetaminophen 325 Mg Tablet PO Q4HR PRN Pain 1 to 4 Albuterol 2.5 mg 03/27/20 19:44 Albuterol Neb 2.5 Mg/3 Ml INH RTQ4H PRN Wheezing Apixaban 5 mg 03/27/20 21:00 03/28/20 08:35 Apixaban 5 Mg Tablet PO 5 mg BID SERVANDO Administration Diltiazem HCl 180 mg 03/28/20 09:00 03/28/20 08:34 Diltiazem Cd 180 Mg Capsule PO 180 mg DAILY SERVANDO Administration Vancomycin HCl 2 gm/ Sodium 500 mls @ 250 mls/hr 03/28/20 11:30 Chloride IV 03/28/20 13:00 ONCE SERVANDO Metoprolol Tartrate 25 mg 03/27/20 21:00 03/28/20 08:33 Metoprolol Tartrate 25 Mg Tablet PO 25 mg BID SERVANDO Administration Metoprolol Tartrate 5 mg 03/27/20 23:00 03/28/20 04:51 Metoprolol 5 Mg/5 Ml Vial IVP 5 mg Q6H SERVANDO Administration Ondansetron HCl 4 mg 03/27/20 19:39 Ondansetron 4 Mg/2 Ml Vial IVP Q6HR PRN Nausea / Vomiting Sodium Chloride 10 ml 03/27/20 19:39 Sodium Chloride Flush 0.9% 10 Ml Syringe IVP PRN PRN NEEDED PER PROVIDER ORDERS Sodium Chloride 10 ml 03/28/20 01:00 03/28/20 08:35 Sodium Chloride Flush 0.9% 10 Ml Syringe IVP 10 ml [id number],1700 SERVANDO Administration Ferrous Sulfate [Iron] 325 mg PO TID 09/25/12 dilTIAZem HCl [Diltiazem 24Hr ER ([place])] 180 mg PO DAILY 09/06/16 Apixaban [Eliquis] 5 mg PO BID 03/28/20 Cholecalciferol [Vitamin D3] 50 mcg PO DAILY 03/28/20 Docusate Sodium 100Mg Capsule [Colace 100Mg Capsule] 100 mg PO BID 03/28/20 Lactulose [Generlac] 10 gm PO BID 03/28/20 Metoprolol Succinate [Toprol Xl] 25 mg PO DAILY 03/28/20 Multivitamin 1 tab PO DAILY 03/28/20 Risperidone [Risperdal] 0.5 mg PO DAILY 03/28/20 Vitamin E 400 unit PO DAILY 03/28/20 Zinc Gluconate [Zinc] 50 mg PO DAILY 03/28/20 Objective - Vital Signs/Intake & Output Reviewed Vital Signs: Yes Vital Signs: Vital Signs x48h Temp Pulse Pulse Pulse Resp BP BP 03/28/20 09:00 37.4 C 107 H 18 103/58 L 03/28/20 08:33 108/60 03/28/20 08:15 102 H 03/28/20 08:00 100 18 108/60 03/28/20 07:15 108 H 03/28/20 07:00 102 H 30 H 95/53 L 03/28/20 06:23 37.2 C 03/28/20 06:00 108 H 20 120/77 03/28/20 05:00 105 H 15 103/51 L 03/28/20 04:18 106 H 03/28/20 04:00 109 H 18 104/53 L 03/28/20 03:00 35.9 C L 105 H 26 H 107/57 L 03/28/20 02:00 103 H 20 122/81 H Pulse Ox 03/28/20 09:00 97 03/28/20 08:33 03/28/20 08:15 03/28/20 08:00 95 03/28/20 07:15 12/14/20 07:00 94 03/28/20 06:23 03/28/20 06:00 94 03/28/20 05:00 90 L 03/28/20 04:18 03/28/20 04:00 90 L 03/28/20 03:00 100 03/28/20 02:00 95 Intake & Output: Intake & Output 03/25/20 03/26/20 03/27/20 03/28/20 23:59 23:59 23:59 23:59 Intake Total 180 Output Total 1300 Balance -1120 - Objective General Appearance: positive: No acute distress, Alert, Lethargic, Other (Patient is a short and obese older female. She appears lethargic, she is intermittently alert but drowsy and is delusional.) Eyes Bilateral: positive: Normal inspection, PERRL, No lid inflammation, Conjunctivae nml, No scleral icterus, Other (Unable to track finger. She fell asleep in the middle of exam.) ENT: positive: ENT inspection nml, Pharynx nml, No signs of dehydration Neck: positive: Nml inspection, Thyroid nml, Trachea midline. negative: Thyromegaly, Lymphadenopathy (R), Lymphadenopathy (L), Stiff neck, Carotid bruit, Tracheal deviation Respiratory: positive: Chest non-tender, Other (Her saturation was in the 80s on room air, but was unlabored and tachypneic. Breath sounds are clear in the upper lung cast and diminished at the base.). negative: Wheezes, Rales, Rhonchi Cardiovascular: positive: Irregularly irregular, Tachycardia, Other (Unable to assess for JVD due to thick neck/body habitus.). negative: No murmur, No gallop, Systolic murmur, Diastolic murmur, Gallop/S3, Gallop/S4 Peripheral Pulses: 2+ Radial (R), 2+ Radial (L), 2+ Dorsalis pedis (R), 2+ Dors елена pedis (L) Abdomen: positive: Non-tender, Nml bowel sounds, Other (patient has a known ventral hernia and abdominal fistula and wound that is covered by gauze.) Skin: positive: Warm, Dry. negative: Cyanosis, Diaphoresis, Pallor Extremities: positive: Pedal edema Neurologic/Psychiatric: positive: Oriented x3, Sensation nml. negative: Facial droop, Slurred/abnml speech, Depressed mood/affect - Lab Results Fish Bones: 03/28/20 04:37 03/28/20 04:37 Other Labs: Lab Results x24hrs 03/28/20 03/28/20 03/28/20 Range/Units 05:25 04:37 04:37 WBC (4.8-10.8) x10^3/uL RBC (4.20-5.40) 10^6/uL Hgb (12.0-16.0) g/dL Hct (37.0-47.0) % MCV (81.0-99.0) fL MCH (27.0-31.0) pg MCHC (32.0-36.0) g/dL RDW (12.0-15.0) % Plt Count (130-450) 10^3/uL MPV (7.9-10.8) fL Neut # (Auto) (1.5-6.6) 10^3/uL Lymph # (Auto) (1.5-3.5) 10^3/uL Robeson # (Auto) (0.0-1.0) 10^3/uL Eos # (Auto) (0.0-0.7) 10^3/uL Baso # (Auto) (0.0-0.1) 10^3/uL Absolute Nucleated RBC x10^3/uL Nucleated RBC % /100WBC Bld Gas Analysis Time 0534 Sample Site LEFT RADIAL ABG pH 7.35 (7.35-7.45) ABG pCO2 75 H* (34-45) mmHg ABG pO2 69 L (80-100) mmHg ABG HCO3 40.5 H (22.0-26.0) mmol/L ABG Total CO2 42.8 H* (21.0-29.0) MMOL/L ABG O2 Saturation 94 (94-98) % ABG Base Excess 11.7 H (-2.0-3.0) mmol/L Joel Test POSITIVE Respiration Rate 18 b/min O2 Delivery Device BiPAP FiO2 30.00 EPAP 5 cmH2O IPAP 12 cmH2O Sodium 143 (135-145) mmol/L Potassium 4.4 (3.5-5.0) mmol/L Chloride 96 L (101-111) mmol/L Carbon Dioxide 37 H (21-32) mmol/L Anion Gap 10.0 (6-13) BUN 21 H (6-20) mg/dL Creatinine 0.8 (0.4-1.0) mg/dL Estimated GFR (MDRD) 70 L (>89) Glucose 99 (70-100) mg/dL Lactic Acid (0.5-2.2) mmol/L Calcium 8.5 (8.5-10.3) mg/dL Magnesium 2.4 (1.7-2.8) mg/dL Total Bilirubin (0.2-1.0) mg/dL AST (10-42) IU/L ALT (10-60) IU/L Alkaline Phosphatase (42-121) IU/L Ammonia (7-35) umol/L B-Natriuretic Peptide 496 H (5-100) pg/mL Total Protein (6.7-8.2) g/dL Albumin (3.2-5.5) g/dL Globulin (2.1-4.2) g/dL Albumin/Globulin Ratio (1.0-2.2) Lipase (22-51) U/L TSH (0.34-5.60) uIU/mL Urine Color Urine Clarity (CLEAR) Urine pH (5.0-7.5) PH Ur Specific [place] (1.002-1.030) Urine Protein (NEGATIVE) mg/dL Urine Glucose (UA) (NEGATIVE) mg/dL Urine Ketones (NEGATIVE) mg/dL Urine Occult Blood (NEGATIVE) Urine Nitrite (NEGATIVE) Urine Bilirubin (NEGATIVE) Urine Urobilinogen (NORMAL) E.U./dL Ur Leukocyte Esterase (NEGATIVE) Ur Microscopic Review Urine Culture Comments Nasal Adenovirus (PCR) Nasal B. parapertussis DNA (PCR) Nasal Coronavir 229E PCR Nasal Coronavir HKU1 PCR Nasal Coronavir NL63 PCR Nasal Coronavir OC43 PCR Nasal Enterovir/Rhinovir PCR Nasal Influenza B PCR Nasal Influenza A PCR Nasal Parainfluen 1 PCR Nasal Parainfluen 2 PCR Nasal Parainfluen 3 PCR Nasal Parainfluen 4 PCR Nasal RSV (PCR) Nasal Screen MRSA (PCR) (NEGATIVE) Nasal B.pertussis DNA PCR Nasal C.pneumoniae (PCR) Severo Human Metapneumo PCR Nasal M.pneumoniae (PCR) Nasal SARS-CoV-2 (PCR) 03/28/20 03/27/20 03/27/20 Range/Units 04:37 23:33 22:00 WBC 4.2 L (4.8-10.8) x10^3/uL RBC 4.84 (4.20-5.40) 10^6/uL Hgb 13.0 (12.0-16.0) g/dL Hct 45.3 (37.0-47.0) % MCV 93.6 (81.0-99.0) fL MCH 26.9 L (27.0-31.0) pg MCHC 28.7 L (32.0-36.0) g/dL RDW 15.8 H (12.0-15.0) % Plt Count 287 (130-450) 10^3/uL MPV 9.9 (7.9-10.8) fL Neut # (Auto) 3.2 (1.5-6.6) 10^3/uL Lymph # (Auto) 0.4 L (1.5-3.5) 10^3/uL Robeson # (Auto) 0.6 (0.0-1.0) 10^3/uL Eos # (Auto) 0.0 (0.0-0.7) 10^3/uL Baso # (Auto) 0.0 (0.0-0.1) 10^3/uL Absolute Nucleated RBC 0.00 x10^3/uL Nucleated RBC % 0.0 /100WBC Bld Gas Analysis Time 2340 Sample Site RIGHT RADIAL ABG pH 7.31 L (7.35-7.45) ABG pCO2 78 H* (34-45) mmHg ABG pO2 67 L (80-100) mmHg ABG HCO3 38.3 H (22.0-26.0) mmol/L ABG Total CO2 40.6 H* (21.0-29.0) MMOL/L ABG O2 Saturation 92 L (94-98) % ABG Base Excess 8.7 H (-2.0-3.0) mmol/L Joel Test POSITIVE Respiration Rate 18 b/min O2 Delivery Device BiPAP FiO2 30.00 EPAP 5 cmH2O IPAP 12 cmH2O Sodium (135-145) mmol/L Potassium (3.5-5.0) mmol/L Chloride (101-111) mmol/L Carbon Dioxide (21-32) mmol/L Anion Gap (6-13) BUN (6-20) mg/dL Creatinine (0.4-1.0) mg/dL Estimated GFR (MDRD) (>89) Glucose (70-100) mg/dL Lactic Acid (0.5-2.2) mmol/L Calcium (8.5-10.3) mg/dL Magnesium (1.7-2.8) mg/dL Total Bilirubin (0.2-1.0) mg/dL AST (10-42) IU/L ALT (10-60) IU/L Alkaline Phosphatase (42-121) IU/L Ammonia (7-35) umol/L B-Natriuretic Peptide (5-100) pg/mL Total Protein (6.7-8.2) g/dL Albumin (3.2-5.5) g/dL Globulin (2.1-4.2) g/dL Albumin/Globulin Ratio (1.0-2.2) Lipase (22-51) U/L TSH (0.34-5.60) uIU/mL Urine Color Urine Clarity (CLEAR) Urine pH (5.0-7.5) PH Ur Specific [place] (1.002-1.030) Urine Protein (NEGATIVE) mg/dL Urine Glucose (UA) (NEGATIVE) mg/dL Urine Ketones (NEGATIVE) mg/dL Urine Occult Blood (NEGATIVE) Urine Nitrite (NEGATIVE) Urine Bilirubin (NEGATIVE) Urine Urobilinogen (NORMAL) E.U./dL Ur Leukocyte Esterase (NEGATIVE) Ur Microscopic Review Urine Culture Comments Nasal Adenovirus (PCR) Nasal B. parapertussis DNA (PCR) Nasal Coronavir 229E PCR Nasal Coronavir HKU1 PCR Nasal Coronavir NL63 PCR Nasal Coronavir OC43 PCR Nasal Enterovir/Rhinovir PCR Nasal Influenza B PCR Nasal Influenza A PCR Nasal Parainfluen 1 PCR Nasal Parainfluen 2 PCR Nasal Parainfluen 3 PCR Nasal Parainfluen 4 PCR Nasal RSV (PCR) Nasal Screen MRSA (PCR) NEGATIVE (NEGATIVE) Nasal B.pertussis DNA PCR Nasal C.pneumoniae (PCR) Severo Human Metapneumo PCR Nasal M.pneumoniae (PCR) Nasal SARS-CoV-2 (PCR) 03/27/20 03/27/20 03/27/20 Range/Units 20:55 20:20 16:18 WBC (4.8-10.8) x10^3/uL RBC (4.20-5.40) 10^6/uL Hgb (12.0-16.0) g/dL Hct (37.0-47.0) % MCV (81.0-99.0) fL MCH (27.0-31.0) pg MCHC (32.0-36.0) g/dL RDW (12.0-15.0) % Plt Count (130-450) 10^3/uL MPV (7.9-10.8) fL Neut # (Auto) (1.5-6.6) 10^3/uL Lymph # (Auto) (1.5-3.5) 10^3/uL Robeson # (Auto) (0.0-1.0) 10^3/uL Eos # (Auto) (0.0-0.7) 10^3/uL Baso # (Auto) (0.0-0.1) 10^3/uL Absolute Nucleated RBC x10^3/uL Nucleated RBC % /100WBC Bld Gas Analysis Time 2054 Sample Site LEFT RADIAL ABG pH 7.25 L (7.35-7.45) ABG pCO2 92 H* (34-45) mmHg ABG pO2 87 (80-100) mmHg ABG HCO3 39.1 H (22.0-26.0) mmol/L ABG Total CO2 41.9 H* (21.0-29.0) MMOL/L ABG O2 Saturation 95 (94-98) % ABG Base Excess 7.7 H (-2.0-3.0) mmol/L Joel Test POSITIVE Respiration Rate b/min O2 Delivery Device NASAL CANNULA FiO2 28.00 EPAP cmH2O IPAP cmH2O Sodium (135-145) mmol/L Potassium (3.5-5.0) mmol/L Chloride (101-111) mmol/L Carbon Dioxide (21-32) mmol/L Anion Gap (6-13) BUN (6-20) mg/dL Creatinine (0.4-1.0) mg/dL Estimated GFR (MDRD) (>89) Glucose (70-100) mg/dL Lactic Acid (0.5-2.2) mmol/L Calcium (8.5-10.3) mg/dL Magnesium (1.7-2.8) mg/dL Total Bilirubin (0.2-1.0) mg/dL AST (10-42) IU/L ALT (10-60) IU/L Alkaline Phosphatase (42-121) IU/L Ammonia 37.1 H (7-35) umol/L B-Natriuretic Peptide (5-100) pg/mL Total Protein (6.7-8.2) g/dL Albumin (3.2-5.5) g/dL Globulin (2.1-4.2) g/dL Albumin/Globulin Ratio (1.0-2.2) Lipase (22-51) U/L TSH (0.34-5.60) uIU/mL Urine Color YELLOW Urine Clarity CLEAR (CLEAR) Urine pH 7.0 (5.0-7.5) PH Ur Specific [place] 1.015 (1.002-1.030) Urine Protein TRACE (NEGATIVE) mg/dL Urine Glucose (UA) NEGATIVE (NEGATIVE) mg/dL Urine Ketones TRACE (NEGATIVE) mg/dL Urine Occult Blood NEGATIVE (NEGATIVE) Urine Nitrite NEGATIVE (NEGATIVE) Urine Bilirubin NEGATIVE (NEGATIVE) Urine Urobilinogen 0.2 (NORMAL) (NORMAL) E.U./dL Ur Leukocyte Esterase NEGATIVE (NEGATIVE) Ur Microscopic Review NOT INDICATED Urine Culture Comments NOT INDICATED Nasal Adenovirus (PCR) Nasal B. parapertussis DNA (PCR) Nasal Coronavir 229E PCR Nasal Coronavir HKU1 PCR Nasal Coronavir NL63 PCR Nasal Coronavir OC43 PCR Nasal Enterovir/Rhinovir PCR Nasal Influenza B PCR Nasal Influenza A PCR Nasal Parainfluen 1 PCR Nasal Parainfluen 2 PCR Nasal Parainfluen 3 PCR Nasal Parainfluen 4 PCR Nasal RSV (PCR) Nasal Screen MRSA (PCR) (NEGATIVE) Nasal B.pertussis DNA PCR Nasal C.pneumoniae (PCR) Severo Human Metapneumo PCR Nasal M.pneumoniae (PCR) Nasal SARS-CoV-2 (PCR) 03/27/20 03/27/20 03/27/20 Range/Units 14:53 14:15 14:15 WBC (4.8-10.8) x10^3/uL RBC (4.20-5.40) 10^6/uL Hgb (12.0-16.0) g/dL Hct (37.0-47.0) % MCV (81.0-99.0) fL MCH (27.0-31.0) pg MCHC (32.0-36.0) g/dL RDW (12.0-15.0) % Plt Count (130-450) 10^3/uL MPV (7.9-10.8) fL Neut # (Auto) (1.5-6.6) 10^3/uL Lymph # (Auto) (1.5-3.5) 10^3/uL [place] # (Auto) (0.0-1.0) 10^3/uL Eos # (Auto) (0.0-0.7) 10^3/uL Baso # (Auto) (0.0-0.1) 10^3/uL Absolute Nucleated RBC x10^3/uL Nucleated RBC % /100WBC Bld Gas Analysis Time Sample Site ABG pH (7.35-7.45) ABG pCO2 (34-45) mmHg ABG pO2 (80-100) mmHg ABG HCO3 (22.0-26.0) mmol/L ABG Total CO2 (21.0-29.0) MMOL/L ABG O2 Saturation (94-98) % ABG Base Excess (-2.0-3.0) mmol/L Joel Test Respiration Rate b/min O2 Delivery Device FiO2 EPAP cmH2O IPAP cmH2O Sodium (135-145) mmol/L Potassium (3.5-5.0) mmol/L Chloride (101-111) mmol/L Carbon Dioxide (21-32) mmol/L Anion Gap (6-13) BUN (6-20) mg/dL Creatinine (0.4-1.0) mg/dL Estimated GFR (MDRD) (>89) Glucose (70-100) mg/dL Lactic Acid (0.5-2.2) mmol/L Calcium (8.5-10.3) mg/dL Magnesium (1.7-2.8) mg/dL Total Bilirubin (0.2-1.0) mg/dL AST (10-42) IU/L ALT (10-60) IU/L Alkaline Phosphatase (42-121) IU/L Ammonia (7-35) umol/L B-Natriuretic Peptide 508 H (5-100) pg/mL Total Protein (6.7-8.2) g/dL Albumin (3.2-5.5) g/dL Globulin (2.1-4.2) g/dL Albumin/Globulin Ratio (1.0-2.2) Lipase (22-51) U/L TSH 2.06 (0.34-5.60) uIU/mL Urine Color Urine Clarity (CLEAR) Urine pH (5.0-7.5) PH Ur Specific [place] (1.002-1.030) Urine Protein (NEGATIVE) mg/dL Urine Glucose (UA) (NEGATIVE) mg/dL Urine Ketones (NEGATIVE) mg/dL Urine Occult Blood (NEGATIVE) Urine Nitrite (NEGATIVE) Urine Bilirubin (NEGATIVE) Urine Urobilinogen (NORMAL) E.U./dL Ur Leukocyte Esterase (NEGATIVE) Ur Microscopic Review Urine Culture Comments Nasal Adenovirus (PCR) NOT DETECTED Nasal B. parapertussis DNA (PCR) NOT DETECTED Nasal Coronavir 229E PCR NOT DETECTED Nasal Coronavir HKU1 PCR NOT DETECTED Nasal Coronavir NL63 PCR NOT DETECTED Nasal Coronavir OC43 PCR NOT DETECTED Nasal Enterovir/Rhinovir PCR NOT DETECTED Nasal Influenza B PCR NOT DETECTED Nasal Influenza A PCR NOT DETECTED Nasal Parainfluen 1 PCR NOT DETECTED Nasal Parainfluen 2 PCR NOT DETECTED Nasal Parainfluen 3 PCR NOT DETECTED Nasal Parainfluen 4 PCR NOT DETECTED Nasal RSV (PCR) NOT DETECTED Nasal Screen MRSA (PCR) (NEGATIVE) Nasal B.pertussis DNA PCR NOT DETECTED Nasal C.pneumoniae (PCR) NOT DETECTED Severo Human Metapneumo PCR NOT DETECTED Nasal M.pneumoniae (PCR) NOT DETECTED Nasal SARS-CoV-2 (PCR) NOT DETECTED 03/27/20 03/27/20 03/27/20 Range/Units 14:15 14:15 14:15 WBC 6.5 (4.8-10.8) x10^3/uL RBC 5.37 (4.20-5.40) 10^6/uL Hgb 14.5 (12.0-16.0) g/dL Hct 48.3 H (37.0-47.0) % MCV 89.9 (81.0-99.0) fL MCH 27.0 (27.0-31.0) pg MCHC 30.0 L (32.0-36.0) g/dL RDW 15.9 H (12.0-15.0) % Plt Count 299 (130-450) 10^3/uL MPV 9.8 (7.9-10.8) fL Neut # (Auto) 5.3 (1.5-6.6) 10^3/uL Lymph # (Auto) 0.4 L (1.5-3.5) 10^3/uL [place] # (Auto) 0.7 (0.0-1.0) 10^3/uL Eos # (Auto) 0.0 (0.0-0.7) 10^3/uL Baso # (Auto) 0.0 (0.0-0.1) 10^3/uL Absolute Nucleated RBC 0.00 x10^3/uL Nucleated RBC % 0.0 /100WBC Bld Gas Analysis Time Sample Site ABG pH (7.35-7.45) ABG pCO2 (34-45) mmHg ABG pO2 (80-100) mmHg ABG HCO3 (22.0-26.0) mmol/L ABG Total CO2 (21.0-29.0) MMOL/L ABG O2 Saturation (94-98) % ABG Base Excess (-2.0-3.0) mmol/L Joel Test Respiration Rate b/min O2 Delivery Device FiO2 EPAP cmH2O IPAP cmH2O Sodium 141 (135-145) mmol/L Potassium 4.2 (3.5-5.0) mmol/L Chloride 92 L (101-111) mmol/L Carbon Dioxide 39 H* (21-32) mmol/L Anion Gap 10.0 (6-13) BUN 18 (6-20) mg/dL Creatinine 0.6 (0.4-1.0) mg/dL Estimated GFR (MDRD) 97 (>89) Glucose 136 H (70-100) mg/dL Lactic Acid 1.0 (0.5-2.2) mmol/L Calcium 9.1 (8.5-10.3) mg/dL Magnesium (1.7-2.8) mg/dL Total Bilirubin 0.7 (0.2-1.0) mg/dL AST 23 (10-42) IU/L ALT 18 (10-60) IU/L Alkaline Phosphatase 103 (42-121) IU/L Ammonia (7-35) umol/L B-Natriuretic Peptide (5-100) pg/mL Total Protein 7.2 (6.7-8.2) g/dL Albumin 3.1 L (3.2-5.5) g/dL Globulin 4.1 (2.1-4.2) g/dL Albumin/Globulin Ratio 0.8 L (1.0-2.2) Lipase 16 L (22-51) U/L TSH (0.34-5.60) uIU/mL Urine Color Urine Clarity (CLEAR) Urine pH (5.0-7.5) PH Ur Specific [place] (1.002-1.030) Urine Protein (NEGATIVE) mg/dL Urine Glucose (UA) (NEGATIVE) mg/dL Urine Ketones (NEGATIVE) mg/dL Urine Occult Blood (NEGATIVE) Urine Nitrite (NEGATIVE) Urine Bilirubin (NEGATIVE) Urine Urobilinogen (NORMAL) E.U./dL Ur Leukocyte Esterase (NEGATIVE) Ur Microscopic Review Urine Culture Comments Nasal Adenovirus (PCR) Nasal B. parapertussis DNA (PCR) Nasal Coronavir 229E PCR Nasal Coronavir HKU1 PCR Nasal Coronavir NL63 PCR Nasal Coronavir OC43 PCR Nasal Enterovir/Rhinovir PCR Nasal Influenza B PCR Nasal Influenza A PCR Nasal Parainfluen 1 PCR Nasal Parainfluen 2 PCR Nasal Parainfluen 3 PCR Nasal Parainfluen 4 PCR Nasal RSV (PCR) Nasal Screen MRSA (PCR) (NEGATIVE) Nasal B.pertussis DNA PCR Nasal C.pneumoniae (PCR) Severo Human Metapneumo PCR Nasal M.pneumoniae (PCR) Nasal SARS-CoV-2 (PCR) ABX Reporting Has patient been on IV antibiotics over the past 48 hours?: No Assessment/Plan - Problem List (1) Altered mental status Impression: She is drowsy but arousable and intermittent alert. She is AAOx3 and is able to follow commands. Though, she is delusional and is at times rambling. She is unable to tell me what happened yesterday before she came into the ED. Per her previous notes, she is delusional at baseline because of her schizophrenia. Her head CT showed no intracranial bleed or infarct. She is hypercapnic and has been on BiPAP throughout the night until this morning. She is now on 5L nasal cannula. Her ABG this morning is slightly better than yesterday's (on BIPAP). Her CO2 is down by a few points, pH is normalized, her HCO3- is elevated showing compensation. It's unclear how long she has been hypercapnic, but based on her labs this may have been going on for a while. Plan: Will keep assessing her mental status throughout the day. She seems more oriented that she was noted to be yesterday. Will get another ABG if she becomes somnolent or if her mental status worsens on BIPAP. Qualifiers: Altered mental status type: somnolence Qualified Code(s): R40.0 - Somnolence (2) Hypoxemia Impression: Patient remains hypoxic on room air. She saturates in the low to mid 80s without her BIPAP, but does fairly well on 5L nasal cannula. Based on her chest x-ray, it does not appear that she is in congestive heart failure exacerbation. She did receive a dose of IV lasix overnight. Her hypoxemia seems to have improved as she does not need to be on BIPAP right now. It is suspected that she may have obesity hypoventilation given her ABG and obesity. Plan: Will continue to monitor the patient's respiratory status in the ICU. She is tolerating being on nasal cannula, but may need BIPAP again if she is somnolent and repeat ABG. (3) Atrial fibrillation with RVR Impression: She has chronic atrial fibrillation. She has been in afib RVR since she's admitted. She received a dose of IV diltiazem in the emergency room last night. Her heart rate improved to the 90s. But she was back in the low 100s this morning. Her vitals are otherwise stable. Plan: Will continue her home dose diltiazem and metoprolol. If her heart rate continues to increase or if she becomes hemodynamicall unstable, may give her IV diltiazem. Eliquis is to be continued for anticoagulation. (4) Schizophrenia Impression: She is on risperidone for her schizophrenia. Patient tells me she takes her medication everyday. Will consult social work today to evaluate if she is safe enough to discharged home to care for herself. Qualifiers: Schizophrenia type: unspecified Qualified Code(s): F20.9 - Schizophrenia, unspecified (5) Ventral hernia Impression: She has a known chronic ventral hernia and was evaluated by general surgery in the emergency room yesterday for concern for small bowel obstruction per abdomen CT. General surgery does not feel that she needs any intervention at this point. She was able to tolerate a diet in the emergency room and has not vomited overnight. Plan: We will continue to watch her symptoms. She has zofran for nausea/vomiting as needed. Qualifiers: Obstruction and gangrene presence: without obstruction or gangrene Qualified Code(s): K43.9 - Ventral hernia without obstruction or gangrene (6) Chronic heart failure with preserved ejection fraction Impression: Patient has a history of preserved ejection fraction heart failure. Her BNP is in the 400s yesterday. She does not seem to be in congestive heart failure exacerbation on exam and per her chest x-ray. There is no echocardiogram in file. Patient received a dose of lasix yesterday. She has pedal edema at baseline. Her lung sounds are clear. She is taking furosemide at home. 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 Plan: Resume her home dose furosemide today. (7) Obesity (BMI 30-39.9) Impression: This patient's BMI is 37. It is suspected that she may have obesity hypoventilation syndrome based on her presentation and ABG. Plan: Will need to refer patient to get a sleep study. She will need to be seen by nutrition for weight loss. (8) Nausea & vomiting Impression: She complained of nausea and vomiting yesterday in the emergency room. But denies it today. She has not vomited overnight. This may be secondary to small bowel obstruction seen in her abdomen CT. Plan: Patient has zofran PRN for nausea and vomiting. (9) Chronic abdominal wound infection Impression: She has a chronic abdominal wound infection with fistula. There is no current indication of infection. She was previously followed [place] [facility] [place]. Patient still has an abdominal mesh that was to be taken out a couple of years ago, however, that was declined by the patient. Plan: Consult wound care today. Qualifiers: Encounter type: subsequent encounter Qualified Code(s): S31.109D - Unspecified open wound of abdominal wall, unspecified quadrant without penetration into peritoneal cavity, subsequent encounter; L08.9 - Local infection of the skin and subcutaneous tissue, unspecified; L08.9 - Local infection of the skin and subcutaneous tissue, unspecified (10) Chilblain Impression: Patient's lower legs and feet are erythemous, edematous, and plainful to touch. It was suspected that she has cellulitis, but after discussing with Dr. Bob and her assessment, it is thought that she may have chillblains instead. The photo taken yesterday of her legs were edematous (baseline), but not erythemous. Per nursing her lower extremities and feet were cool to touch yesterday. The chillblains are likely due to rewarming and vasodilation. plan: we will continue to monitor her lower legs and feet for worsening redness, pain, and edema.
[2020-03-28] MEDS ORDERED: DOXYCYCLINE INJ 100 MG in SODIUM CHLORIDE 0.9% MINIBAG 100 ML IV SCH (10:00)
--- NOTE | 2020-03-28 10:42 | PHARMACY PROGRESS NOTE ---
- Best Possible Medication History Admit Date and Time: 03/27/202109 Processed by: Pharmacy Medication History completed: Yes Patient Interview: Completed Secondary Source(s): Physician records, Pharmacy records, Insurance records (PATIENT INTERVIEWED BY DIRECTOR OF OUTPATIENT SERVICES. PATIENT UNABLE TO CONFIRM HOME MEDICATIONS. MED REC COMPLETED USING INSURANCE ) As the person ultimately responsible for medication therapy, providers are able to order a medication from an existing home medication list in [facility] via the "Reconcile Routine" prior to Confirmation of that medication by retail support associate. Such practice is discouraged except when the physician, in their clinical judgment, deems that a medical need exists for a medication without regard to previous use.
[2020-03-28] MEDS ORDERED: VANCOMYCIN INJ 2 GM in SODIUM CHLORIDE 0.9% 500 ML IV SCH (11:30)
--- NOTE | 2020-03-28 12:18 | PROVIDER PROGRESS NOTE ---
Subjective - Prog Note Date Prog Note Date: 03/28/20 - Subjective Pt reports feeling: Improved (she is alert and conversant. No complaints) Objective - Vital Signs/Intake & Output Reviewed Vital Signs: Yes Vital Signs: Vital Signs x48h Temp Pulse Pulse Resp BP BP Pulse Ox 03/28/20 11:00 102 H 15 90/49 L 99 03/28/20 10:15 119 H 03/28/20 10:00 109 H 19 103/55 L 93 03/28/20 09:00 37.4 C 107 H 18 103/58 L 97 03/28/20 08:33 108/60 03/28/20 08:15 102 H 03/28/20 08:00 100 18 108/60 95 03/28/20 07:15 108 H 03/28/20 07:00 102 H 30 H 95/53 L 94 03/28/20 06:23 37.2 C 03/28/20 06:00 108 H 20 120/77 94 03/28/20 05:00 105 H 15 103/51 L 90 L 03/28/20 04:18 106 H Intake & Output: Intake & Output 03/25/20 03/26/20 03/27/20 03/28/20 23:59 23:59 23:59 23:59 Intake Total 660 Output Total 1300 Balance -640 - Objective General Appearance: positive: No acute distress, Alert, Other (she appears dramatically improved since yesterday) Eyes Bilateral: positive: Normal inspection, PERRL, EOMI ENT: positive: No signs of dehydration Respiratory: positive: No respiratory distress Abdomen: positive: Non-tender, No distention, Other (dressing clean dry intact no signs of abdominal wall infection) - Lab Results Fish Bones: 03/28/20 04:37 03/28/20 04:37 Other Labs: Lab Results x24hrs 03/28/20 03/28/20 03/28/20 Range/Units 05:25 04:37 04:37 WBC (4.8-10.8) x10^3/uL RBC (4.20-5.40) 10^6/uL Hgb (12.0-16.0) g/dL Hct (37.0-47.0) % MCV (81.0-99.0) fL MCH (27.0-31.0) pg MCHC (32.0-36.0) g/dL RDW (12.0-15.0) % Plt Count (130-450) 10^3/uL MPV (7.9-10.8) fL Neut # (Auto) (1.5-6.6) 10^3/uL Lymph # (Auto) (1.5-3.5) 10^3/uL Ramsey # (Auto) (0.0-1.0) 10^3/uL Eos # (Auto) (0.0-0.7) 10^3/uL Baso # (Auto) (0.0-0.1) 10^3/uL Absolute Nucleated RBC x10^3/uL Nucleated RBC % /100WBC Bld Gas Analysis Time 0534 Sample Site LEFT RADIAL ABG pH 7.35 (7.35-7.45) ABG pCO2 75 H* (34-45) mmHg ABG pO2 69 L (80-100) mmHg ABG HCO3 40.5 H (22.0-26.0) mmol/L ABG Total CO2 42.8 H* (21.0-29.0) MMOL/L ABG O2 Saturation 94 (94-98) % ABG Base Excess 11.7 H (-2.0-3.0) mmol/L Joel Test POSITIVE Respiration Rate 18 b/min O2 Delivery Device BiPAP FiO2 30.00 EPAP 5 cmH2O IPAP 12 cmH2O Sodium 143 (135-145) mmol/L Potassium 4.4 (3.5-5.0) mmol/L Chloride 96 L (101-111) mmol/L Carbon Dioxide 37 H (21-32) mmol/L Anion Gap 10.0 (6-13) BUN 21 H (6-20) mg/dL Creatinine 0.8 (0.4-1.0) mg/dL Estimated GFR (MDRD) 70 L (>89) Glucose 99 (70-100) mg/dL Lactic Acid (0.5-2.2) mmol/L Calcium 8.5 (8.5-10.3) mg/dL Magnesium 2.4 (1.7-2.8) mg/dL Total Bilirubin (0.2-1.0) mg/dL AST (10-42) IU/L ALT (10-60) IU/L Alkaline Phosphatase (42-121) IU/L Ammonia (7-35) umol/L B-Natriuretic Peptide 496 H (5-100) pg/mL Total Protein (6.7-8.2) g/dL Albumin (3.2-5.5) g/dL Globulin (2.1-4.2) g/dL Albumin/Globulin Ratio (1.0-2.2) Lipase (22-51) U/L TSH (0.34-5.60) uIU/mL Urine Color Urine Clarity (CLEAR) Urine pH (5.0-7.5) PH Ur Specific [place] (1.002-1.030) Urine Protein (NEGATIVE) mg/dL Urine Glucose (UA) (NEGATIVE) mg/dL Urine Ketones (NEGATIVE) mg/dL Urine Occult Blood (NEGATIVE) Urine Nitrite (NEGATIVE) Urine Bilirubin (NEGATIVE) Urine Urobilinogen (NORMAL) E.U./dL Ur Leukocyte Esterase (NEGATIVE) Ur Microscopic Review Urine Culture Comments Nasal Adenovirus (PCR) Nasal B. parapertussis DNA (PCR) Nasal Coronavir 229E PCR Nasal Coronavir HKU1 PCR Nasal Coronavir NL63 PCR Nasal Coronavir OC43 PCR Nasal Enterovir/Rhinovir PCR Nasal Influenza B PCR Nasal Influenza A PCR Nasal Parainfluen 1 PCR Nasal Parainfluen 2 PCR Nasal Parainfluen 3 PCR Nasal Parainfluen 4 PCR Nasal RSV (PCR) Nasal Screen MRSA (PCR) (NEGATIVE) Nasal B.pertussis DNA PCR Nasal C.pneumoniae (PCR) Severo Human Metapneumo PCR Nasal M.pneumoniae (PCR) Nasal SARS-CoV-2 (PCR) 03/28/20 03/27/20 03/27/20 Range/Units 04:37 23:33 22:00 WBC 4.2 L (4.8-10.8) x10^3/uL RBC 4.84 (4.20-5.40) 10^6/uL Hgb 13.0 (12.0-16.0) g/dL Hct 45.3 (37.0-47.0) % MCV 93.6 (81.0-99.0) fL MCH 26.9 L (27.0-31.0) pg MCHC 28.7 L (32.0-36.0) g/dL RDW 15.8 H (12.0-15.0) % Plt Count 287 (130-450) 10^3/uL MPV 9.9 (7.9-10.8) fL Neut # (Auto) 3.2 (1.5-6.6) 10^3/uL Lymph # (Auto) 0.4 L (1.5-3.5) 10^3/uL Ramsey # (Auto) 0.6 (0.0-1.0) 10^3/uL Eos # (Auto) 0.0 (0.0-0.7) 10^3/uL Baso # (Auto) 0.0 (0.0-0.1) 10^3/uL Absolute Nucleated RBC 0.00 x10^3/uL Nucleated RBC % 0.0 /100WBC Bld Gas Analysis Time 2340 Sample Site RIGHT RADIAL ABG pH 7.31 L (7.35-7.45) ABG pCO2 78 H* (34-45) mmHg ABG pO2 67 L (80-100) mmHg ABG HCO3 38.3 H (22.0-26.0) mmol/L ABG Total CO2 40.6 H* (21.0-29.0) MMOL/L ABG O2 Saturation 92 L (94-98) % ABG Base Excess 8.7 H (-2.0-3.0) mmol/L Joel Test POSITIVE Respiration Rate 18 b/min O2 Delivery Device BiPAP FiO2 30.00 EPAP 5 cmH2O IPAP 12 cmH2O Sodium (135-145) mmol/L Potassium (3.5-5.0) mmol/L Chloride (101-111) mmol/L Carbon Dioxide (21-32) mmol/L Anion Gap (6-13) BUN (6-20) mg/dL Creatinine (0.4-1.0) mg/dL Estimated GFR (MDRD) (>89) Glucose (70-100) mg/dL Lactic Acid (0.5-2.2) mmol/L Calcium (8.5-10.3) mg/dL Magnesium (1.7-2.8) mg/dL Total Bilirubin (0.2-1.0) mg/dL AST (10-42) IU/L ALT (10-60) IU/L Alkaline Phosphatase (42-121) IU/L Ammonia (7-35) umol/L B-Natriuretic Peptide (5-100) pg/mL Total Protein (6.7-8.2) g/dL Albumin (3.2-5.5) g/dL Globulin (2.1-4.2) g/dL Albumin/Globulin Ratio (1.0-2.2) Lipase (22-51) U/L TSH (0.34-5.60) uIU/mL Urine Color Urine Clarity (CLEAR) Urine pH (5.0-7.5) PH Ur Specific [place] (1.002-1.030) Urine Protein (NEGATIVE) mg/dL Urine Glucose (UA) (NEGATIVE) mg/dL Urine Ketones (NEGATIVE) mg/dL Urine Occult Blood (NEGATIVE) Urine Nitrite (NEGATIVE) Urine Bilirubin (NEGATIVE) Urine Urobilinogen (NORMAL) E.U./dL Ur Leukocyte Esterase (NEGATIVE) Ur Microscopic Review Urine Culture Comments Nasal Adenovirus (PCR) Nasal B. parapertussis DNA (PCR) Nasal Coronavir 229E PCR Nasal Coronavir HKU1 PCR Nasal Coronavir NL63 PCR Nasal Coronavir OC43 PCR Nasal Enterovir/Rhinovir PCR Nasal Influenza B PCR Nasal Influenza A PCR Nasal Parainfluen 1 PCR Nasal Parainfluen 2 PCR Nasal Parainfluen 3 PCR Nasal Parainfluen 4 PCR Nasal RSV (PCR) Nasal Screen MRSA (PCR) NEGATIVE (NEGATIVE) Nasal B.pertussis DNA PCR Nasal C.pneumoniae (PCR) Severo Human Metapneumo PCR Nasal M.pneumoniae (PCR) Nasal SARS-CoV-2 (PCR) 03/27/20 03/27/20 03/27/20 Range/Units 20:55 20:20 16:18 WBC (4.8-10.8) x10^3/uL RBC (4.20-5.40) 10^6/uL Hgb (12.0-16.0) g/dL Hct (37.0-47.0) % MCV (81.0-99.0) fL MCH (27.0-31.0) pg MCHC (32.0-36.0) g/dL RDW (12.0-15.0) % Plt Count (130-450) 10^3/uL MPV (7.9-10.8) fL Neut # (Auto) (1.5-6.6) 10^3/uL Lymph # (Auto) (1.5-3.5) 10^3/uL Ramsey # (Auto) (0.0-1.0) 10^3/uL Eos # (Auto) (0.0-0.7) 10^3/uL Baso # (Auto) (0.0-0.1) 10^3/uL Absolute Nucleated RBC x10^3/uL Nucleated RBC % /100WBC Bld Gas Analysis Time 2054 Sample Site LEFT RADIAL ABG pH 7.25 L (7.35-7.45) ABG pCO2 92 H* (34-45) mmHg ABG pO2 87 (80-100) mmHg ABG HCO3 39.1 H (22.0-26.0) mmol/L ABG Total CO2 41.9 H* (21.0-29.0) MMOL/L ABG O2 Saturation 95 (94-98) % ABG Base Excess 7.7 H (-2.0-3.0) mmol/L Joel Test POSITIVE Respiration Rate b/min O2 Delivery Device NASAL CANNULA FiO2 28.00 EPAP cmH2O IPAP cmH2O Sodium (135-145) mmol/L Potassium (3.5-5.0) mmol/L Chloride (101-111) mmol/L Carbon Dioxide (21-32) mmol/L Anion Gap (6-13) BUN (6-20) mg/dL Creatinine (0.4-1.0) mg/dL Estimated GFR (MDRD) (>89) Glucose (70-100) mg/dL Lactic Acid (0.5-2.2) mmol/L Calcium (8.5-10.3) mg/dL Magnesium (1.7-2.8) mg/dL Total Bilirubin (0.2-1.0) mg/dL AST (10-42) IU/L ALT (10-60) IU/L Alkaline Phosphatase (42-121) IU/L Ammonia 37.1 H (7-35) umol/L B-Natriuretic Peptide (5-100) pg/mL Total Protein (6.7-8.2) g/dL Albumin (3.2-5.5) g/dL Globulin (2.1-4.2) g/dL Albumin/Globulin Ratio (1.0-2.2) Lipase (22-51) U/L TSH (0.34-5.60) uIU/mL Urine Color YELLOW Urine Clarity CLEAR (CLEAR) Urine pH 7.0 (5.0-7.5) PH Ur Specific [place] 1.015 (1.002-1.030) Urine Protein TRACE (NEGATIVE) mg/dL Urine Glucose (UA) NEGATIVE (NEGATIVE) mg/dL Urine Ketones TRACE (NEGATIVE) mg/dL Urine Occult Blood NEGATIVE (NEGATIVE) Urine Nitrite NEGATIVE (NEGATIVE) Urine Bilirubin NEGATIVE (NEGATIVE) Urine Urobilinogen 0.2 (NORMAL) (NORMAL) E.U./dL Ur Leukocyte Esterase NEGATIVE (NEGATIVE) Ur Microscopic Review NOT INDICATED Urine Culture Comments NOT INDICATED Nasal Adenovirus (PCR) Nasal B. parapertussis DNA (PCR) Nasal Coronavir 229E PCR Nasal Coronavir HKU1 PCR Nasal Coronavir NL63 PCR Nasal Coronavir OC43 PCR Nasal Enterovir/Rhinovir PCR Nasal Influenza B PCR Nasal Influenza A PCR Nasal Parainfluen 1 PCR Nasal Parainfluen 2 PCR Nasal Parainfluen 3 PCR Nasal Parainfluen 4 PCR Nasal RSV (PCR) Nasal Screen MRSA (PCR) (NEGATIVE) Nasal B.pertussis DNA PCR Nasal C.pneumoniae (PCR) Severo Human Metapneumo PCR Nasal M.pneumoniae (PCR) Nasal SARS-CoV-2 (PCR) 03/27/20 03/27/20 03/27/20 Range/Units 14:53 14:15 14:15 WBC (4.8-10.8) x10^3/uL RBC (4.20-5.40) 10^6/uL Hgb (12.0-16.0) g/dL Hct (37.0-47.0) % MCV (81.0-99.0) fL MCH (27.0-31.0) pg MCHC (32.0-36.0) g/dL RDW (12.0-15.0) % Plt Count (130-450) 10^3/uL MPV (7.9-10.8) fL Neut # (Auto) (1.5-6.6) 10^3/uL Lymph # (Auto) (1.5-3.5) 10^3/uL Ramsey # (Auto) (0.0-1.0) 10^3/uL Eos # (Auto) (0.0-0.7) 10^3/uL Baso # (Auto) (0.0-0.1) 10^3/uL Absolute Nucleated RBC x10^3/uL Nucleated RBC % /100WBC Bld Gas Analysis Time Sample Site ABG pH (7.35-7.45) ABG pCO2 (34-45) mmHg ABG pO2 (80-100) mmHg ABG HCO3 (22.0-26.0) mmol/L ABG Total CO2 (21.0-29.0) MMOL/L ABG O2 Saturation (94-98) % ABG Base Excess (-2.0-3.0) mmol/L Joel Test Respiration Rate b/min O2 Delivery Device FiO2 EPAP cmH2O IPAP cmH2O Sodium (135-145) mmol/L Potassium (3.5-5.0) mmol/L Chloride (101-111) mmol/L Carbon Dioxide (21-32) mmol/L Anion Gap (6-13) BUN (6-20) mg/dL Creatinine (0.4-1.0) mg/dL Estimated GFR (MDRD) (>89) Glucose (70-100) mg/dL Lactic Acid (0.5-2.2) mmol/L Calcium (8.5-10.3) mg/dL Magnesium (1.7-2.8) mg/dL Total Bilirubin (0.2-1.0) mg/dL AST (10-42) IU/L ALT (10-60) IU/L Alkaline Phosphatase (42-121) IU/L Ammonia (7-35) umol/L B-Natriuretic Peptide 508 H (5-100) pg/mL Total Protein (6.7-8.2) g/dL Albumin (3.2-5.5) g/dL Globulin (2.1-4.2) g/dL Albumin/Globulin Ratio (1.0-2.2) Lipase (22-51) U/L TSH 2.06 (0.34-5.60) uIU/mL Urine Color Urine Clarity (CLEAR) Urine pH (5.0-7.5) PH Ur Specific [place] (1.002-1.030) Urine Protein (NEGATIVE) mg/dL Urine Glucose (UA) (NEGATIVE) mg/dL Urine Ketones (NEGATIVE) mg/dL Urine Occult Blood (NEGATIVE) Urine Nitrite (NEGATIVE) Urine Bilirubin (NEGATIVE) Urine Urobilinogen (NORMAL) E.U./dL Ur Leukocyte Esterase (NEGATIVE) Ur Microscopic Review Urine Culture Comments Nasal Adenovirus (PCR) NOT DETECTED Nasal B. parapertussis DNA (PCR) NOT DETECTED Nasal Coronavir 229E PCR NOT DETECTED Nasal Coronavir HKU1 PCR NOT DETECTED Nasal Coronavir NL63 PCR NOT DETECTED Nasal Coronavir OC43 PCR NOT DETECTED Nasal Enterovir/Rhinovir PCR NOT DETECTED Nasal Influenza B PCR NOT DETECTED Nasal Influenza A PCR NOT DETECTED Nasal Parainfluen 1 PCR NOT DETECTED Nasal Parainfluen 2 PCR NOT DETECTED Nasal Parainfluen 3 PCR NOT DETECTED Nasal Parainfluen 4 PCR NOT DETECTED Nasal RSV (PCR) NOT DETECTED Nasal Screen MRSA (PCR) (NEGATIVE) Nasal B.pertussis DNA PCR NOT DETECTED Nasal C.pneumoniae (PCR) NOT DETECTED Severo Human Metapneumo PCR NOT DETECTED Nasal M.pneumoniae (PCR) NOT DETECTED Nasal SARS-CoV-2 (PCR) NOT DETECTED 03/27/20 03/27/20 03/27/20 Range/Units 14:15 14:15 14:15 WBC 6.5 (4.8-10.8) x10^3/uL RBC 5.37 (4.20-5.40) 10^6/uL Hgb 14.5 (12.0-16.0) g/dL Hct 48.3 H (37.0-47.0) % MCV 89.9 (81.0-99.0) fL MCH 27.0 (27.0-31.0) pg MCHC 30.0 L (32.0-36.0) g/dL RDW 15.9 H (12.0-15.0) % Plt Count 299 (130-450) 10^3/uL MPV 9.8 (7.9-10.8) fL Neut # (Auto) 5.3 (1.5-6.6) 10^3/uL Lymph # (Auto) 0.4 L (1.5-3.5) 10^3/uL Ramsey # (Auto) 0.7 (0.0-1.0) 10^3/uL Eos # (Auto) 0.0 (0.0-0.7) 10^3/uL Baso # (Auto) 0.0 (0.0-0.1) 10^3/uL Absolute Nucleated RBC 0.00 x10^3/uL Nucleated RBC % 0.0 /100WBC Bld Gas Analysis Time Sample Site ABG pH (7.35-7.45) ABG pCO2 (34-45) mmHg ABG pO2 (80-100) mmHg ABG HCO3 (22.0-26.0) mmol/L ABG Total CO2 (21.0-29.0) MMOL/L ABG O2 Saturation (94-98) % ABG Base Excess (-2.0-3.0) mmol/L Joel Test Respiration Rate b/min O2 Delivery Device FiO2 EPAP cmH2O IPAP cmH2O Sodium 141 (135-145) mmol/L Potassium 4.2 (3.5-5.0) mmol/L Chloride 92 L (101-111) mmol/L Carbon Dioxide 39 H* (21-32) mmol/L Anion Gap 10.0 (6-13) BUN 18 (6-20) mg/dL Creatinine 0.6 (0.4-1.0) mg/dL Estimated GFR (MDRD) 97 (>89) Glucose 136 H (70-100) mg/dL Lactic Acid 1.0 (0.5-2.2) mmol/L Calcium 9.1 (8.5-10.3) mg/dL Magnesium (1.7-2.8) mg/dL Total Bilirubin 0.7 (0.2-1.0) mg/dL AST 23 (10-42) IU/L ALT 18 (10-60) IU/L Alkaline Phosphatase 103 (42-121) IU/L Ammonia (7-35) umol/L B-Natriuretic Peptide (5-100) pg/mL Total Protein 7.2 (6.7-8.2) g/dL Albumin 3.1 L (3.2-5.5) g/dL Globulin 4.1 (2.1-4.2) g/dL Albumin/Globulin Ratio 0.8 L (1.0-2.2) Lipase 16 L (22-51) U/L TSH (0.34-5.60) uIU/mL Urine Color Urine Clarity (CLEAR) Urine pH (5.0-7.5) PH Ur Specific [place] (1.002-1.030) Urine Protein (NEGATIVE) mg/dL Urine Glucose (UA) (NEGATIVE) mg/dL Urine Ketones (NEGATIVE) mg/dL Urine Occult Blood (NEGATIVE) Urine Nitrite (NEGATIVE) Urine Bilirubin (NEGATIVE) Urine Urobilinogen (NORMAL) E.U./dL Ur Leukocyte Esterase (NEGATIVE) Ur Microscopic Review Urine Culture Comments Nasal Adenovirus (PCR) Nasal B. parapertussis DNA (PCR) Nasal Coronavir 229E PCR Nasal Coronavir HKU1 PCR Nasal Coronavir NL63 PCR Nasal Coronavir OC43 PCR Nasal Enterovir/Rhinovir PCR Nasal Influenza B PCR Nasal Influenza A PCR Nasal Parainfluen 1 PCR Nasal Parainfluen 2 PCR Nasal Parainfluen 3 PCR Nasal Parainfluen 4 PCR Nasal RSV (PCR) Nasal Screen MRSA (PCR) (NEGATIVE) Nasal B.pertussis DNA PCR Nasal C.pneumoniae (PCR) Severo Human Metapneumo PCR Nasal M.pneumoniae (PCR) Nasal SARS-CoV-2 (PCR) - Other Results/Comments Other Results/Comments: Clinically she does not have a bowel obstruction. Agree with diet of choice and dry dressings as needed. 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 She was seen at in 2015 by chart review. She declined surgery for draining abdominal wound at that time. She is not a surgical candidate at [facility]. If she were to decide for further abdominal wall surgery I recommend she seek the care of a hospital that can provide a higher level of care and follow up at the
--- NOTE | 2020-03-28 12:34 | PHARMACY PROGRESS NOTE ---
- Therapy Status Vancomycin regimen day #: 1 Therapy status: Awaiting steady state Basis for treatment: Empirical Treatment indication: CELLULITIS Trough goal: 15-20 - ANDRES Risk Risk level for Acute Kidney Injury: Moderate Acute Kidney Injury risk factors: Baseline CrCl <50, Admission to ICU - Monitoring and Recommendation Clinical response to treatment: I&O Previous 24 hours 03/26/20 03/27/20 03/28/20 23:59 23:59 23:59 Intake Total 900 Output Total 1300 Balance -400 Lab Results 03/28/20 03/27/20 04:37 14:15 BUN 21 H 18 Creatinine 0.8 0.6 Estimated GFR (MDRD) 70 L 97 Monitoring plan: Daily serum creatinine, Draw trough early (03/28 VANCOMYCIN INITIATED FOR CELLULITIS 2GM LOADING DOSE X1 (03/28 @ 1130) MAINTENACNCE DOSE: 1500 Q24H T1/2 = ~18H SCR: 0.8 MG/DL , CRCL: ~40 ML/MIN TROUGH SCHEDULED FOR 03/30 @ 1000 BEFORE 3RD DOSE)
[2020-03-28] MEDS: MULTIVITAMIN W/MINERALS TABLET PO SCH (16:03)
[2020-03-28] MEDS ORDERED: MAG HYDROX/AL HYDROX/SIMETH 30 ML UDC PO PRN (21:42)
[2020-03-28] MEDS ORDERED: METOPROLOL 5 MG/5 ML VIAL IVP SCH (22:07)
[2020-03-28] MEDS: FERROUS SULFATE 325 MG TABLET PO SCH (22:13)
[2020-03-29 04:24] LABS: BASOPHILS % (AUTO) 0.6 %; EOSINOPHILS % (AUTO) 0.8 %; HGB - HEMOGLOBIN 12.4 g/dL (12.0-16.0); LYMPHOCYTES # (AUTO) 0.7 10^3/uL (1.5-3.5); LYMPHOCYTES % (AUTO) 12.5 %; MEAN CORPUSCULAR HEMOGLOBIN 27.3 pg (27.0-31.0); MEAN CORPUSCULAR HGB CONC 29.5 g/dL (32.0-36.0); MEAN CORPUSCULAR VOLUME 92.5 fL (81.0-99.0); MONOCYTES # (AUTO) 0.9 10^3/uL (0.0-1.0); MONOCYTES % (AUTO) 17.3 %; NEUTROPHILS # (AUTO) 3.6 10^3/uL (1.5-6.6); NEUTROPHILS % (AUTO) 68.6 %; PLT - PLATELET COUNT 273 10^3/uL (130-450); RED BLOOD COUNT 4.55 10^6/uL (4.20-5.40); RED CELL DISTRIBUTION WIDTH 15.3 % (12.0-15.0); WHITE BLOOD COUNT 5.3 x10^3/uL (4.8-10.8)
[2020-03-29 04:38] LABS: CALCIUM 8.4 mg/dL (8.5-10.3); CREATININE 0.8 mg/dL (0.4-1.0); MAGNESIUM 2.4 mg/dL (1.7-2.8)
[2020-03-29] MEDS: FERROUS SULFATE 325 MG TABLET PO SCH ×3 (06:29→21:33)
[2020-03-29] MEDS: SODIUM CHLORIDE FLUSH 0.9% 10 ML SYRINGE IVP SCH ×3 (06:30→16:12)
[2020-03-29] MEDS: ASCORBIC ACID CHEW 500 MG TABLET PO SCH (08:06)
[2020-03-29] MEDS: APIXABAN 5 MG TABLET PO SCH ×2 (08:06→21:33)
[2020-03-29] MEDS: diltiaZEM CD 180 MG CAPSULE PO SCH (08:06)
[2020-03-29] MEDS: METOPROLOL TARTRATE 25 MG TABLET PO SCH ×2 (08:06→21:33)
[2020-03-29] MEDS: ZINC SULFATE 220 MG CAPSULE PO SCH (08:06)
[2020-03-29] MEDS: MULTIVITAMIN W/MINERALS TABLET PO SCH (08:06)
[2020-03-29] MEDS ORDERED: VANCOMYCIN INJ 1 GM, VANCOMYCIN INJ 500 MG in SODIUM CHLORIDE 0.9% 500 ML IV SCH (11:00)
[2020-03-29] MEDS: risperiDONE 1 MG TABLET PO SCH (11:21)
[2020-03-29] MEDS: DOCUSATE SODIUM 100 MG CAPSULE PO SCH ×2 (11:21→21:33)
[2020-03-29] MEDS: LACTULOSE 10 GM /15 ML UDC PO SCH ×2 (11:21→21:32)
--- NOTE | 2020-03-29 17:40 | PROVIDER PROGRESS NOTE ---
Assessment/Plan - Problem List (1) Altered mental status Qualifiers: Altered mental status type: somnolence Qualified Code(s): R40.0 - Somnolence Assessment/Plan: I awoke patient from sleep, her nurse tells me that she is sometimes confused after taking a nap. Patient answers with a flat affect and has 1 or 2 word sentences for her answers. She tells me she has not gotten out of bed and the nurse says she had just worked with physical therapy. Will transfer out of ICU. Continue telemetry. Continue PT. (2) Hypoxemia Assessment/Plan: She continues to need supplemental O2, has been weaned down to 2 L per nasal cannula, after choking she needed 3 L by oximetry mask, last night she refused to use her BiPAP however. We will transfer out of ICU. Will recheck chest x-ray. Will order echo, since not done yet this admission and none on record here. Try to wean off O2 keeping saturation greater than 90%. (3) Choking due to food in larynx Assessment/Plan: She has a history of Alvarez's esophagus. Will de-escalate her diet to pured and will also order a swallowing eval by speech therapy. (4) Atrial flutter with rapid ventricular response Assessment/Plan: Telemetry shows atrial flutter with big sawtooth P waves. Heart rate is 70-90 if she she gets her morning Cardizem and Metoprolol, then evening Metoprolol. Heart rate went up to 150 when she was choking on her carrots today. Continue with heart rate slowing meds. Continue with her anticoagulant. Continue with telemetry (5) Chronic heart failure with preserved ejection fraction Assessment/Plan: Patient has a history of preserved ejection fraction heart failure. She does not seem to be in congestive heart failure exacerbation on exam and per her chest x-ray. There is no echocardiogram in file. Will order an Echo, given the desaturations. We resumed her home dose furosemide today. (6) Chronic abdominal wound infection Qualifiers: Encounter type: subsequent encounter Qualified Code(s): S31.109D - Unspecified open wound of abdominal wall, unspecified quadrant without penetration into peritoneal cavity, subsequent encounter; L08.9 - Local infection of the skin and subcutaneous tissue, unspecified; L08.9 - Local infection of the skin and subcutaneous tissue, unspecified Assessment/Plan: She has a chronic abdominal wound infection with fistula. There is no current indication of infection. She was previously followed by the [facility] here for her wound. Patient still has an abdominal mesh that was to be taken out a couple of years ago, however, that was declined by the patient. Wound care consult pending (7) Schizophrenia Qualifiers: Schizophrenia type: unspecified Qualified Code(s): F20.9 - Schizophrenia, unspecified Assessment/Plan: She carries this Dx, and is on risperidone for her schizophrenia. Patient tells me she takes her medication everyday. Will resume resperidone. (8) Ventral hernia Qualifiers: Obstruction and gangrene presence: without obstruction or gangrene Qualified Code(s): K43.9 - Ventral hernia without obstruction or gangrene Assessment/Plan: She has a known chronic ventral hernia and was evaluated by general surgery in the emergency room yesterday for concern for small bowel obstruction per abdomen CT. General surgery does not feel that she needs any intervention at this point. She was able to tolerate a diet in the emergency room. (9) Chilblain Assessment/Plan: Patient's lower legs and feet are erythemous, edematous, and plainful to touch. It was suspected that she has cellulitis, but after discussing with Dr. Bob and her assessment, it is thought that she may have chillblains instead. The photo taken yesterday of her legs were edematous (baseline), but not erythemous. Per nursing her lower extremities and feet were cool to touch yesterday. The chillblains are likely due to rewarming and vasodilation. We will continue to monitor her lower legs and feet for worsening redness, pain, and edema. (10) Obesity (BMI 30-39.9) Assessment/Plan: This patient's BMI is 37. It is suspected that she may have obesity hypoventilation syndrome based on her presentation and ABG. Will need to refer patient to get a sleep study. She will need to be seen by nutrition for weight loss. (11) Abdominal pain Assessment/Plan: He has had no complaints of abdominal pain today. The N/V has resolved. The nurse told me she ate 75% of her diet with an appetite (she choked after eating boiled carrots however) - Current Meds Current Meds: Current Medications Generic Name Dose Route Start Last Admin Trade Name Freq PRN Reason Stop Dose Admin Al Hydroxide/Mg Hydroxide 30 ml 03/28/20 21:42 03/28/20 22:13 Mag Hydrox/Al Hydrox/Simeth 30 Ml Udc PO 30 ml Q4HR PRN Administration INDIGESTION Apixaban 5 mg 03/27/20 21:00 03/29/20 08:06 Apixaban 5 Mg Tablet PO 5 mg BID SERVANDO Administration Ascorbic Acid 500 mg 03/29/20 09:00 03/29/20 08:06 Ascorbic Acid Chew 500 Mg Tablet PO 500 mg DAILY SERVANDO Administration Diltiazem HCl 180 mg 03/28/20 09:00 03/29/20 08:06 Diltiazem Cd 180 Mg Capsule PO 180 mg DAILY SERVANDO Administration Docusate Sodium 100 mg 03/29/20 11:00 03/29/20 11:21 Docusate Sodium 100 Mg Capsule PO 100 mg BID SERVANDO Administration Ferrous Sulfate 325 mg 03/28/20 22:00 03/29/20 16:12 Ferrous Sulfate 325 Mg Tablet PO 325 mg TID SERVANDO Administration Lactulose 10 gm 03/29/20 12:00 03/29/20 11:21 Lactulose 10 Gm /15 Ml Udc PO 10 gm BID SERVANDO Administration Metoprolol Tartrate 25 mg 03/27/20 21:00 03/29/20 08:06 Metoprolol Tartrate 25 Mg Tablet PO 25 mg BID SERVANDO Administration Multivitamins/Minerals 1 tab 03/28/20 15:00 03/29/20 08:06 Multivitamin W/Minerals Tablet PO 1 tab DAILYWM SERVANDO Administration Risperidone 0.5 mg 03/29/20 11:00 03/29/20 11:21 Risperidone 1 Mg Tablet PO 0.5 mg DAILY SERVANDO Administration Sodium Chloride 10 ml 03/28/20 01:00 03/29/20 16:12 Sodium Chloride Flush 0.9% 10 Ml Syringe IVP 10 ml 0100,0900,1700 SERVANDO Administration Zinc Sulfate 220 mg 03/29/20 09:00 03/29/20 08:06 Zinc Sulfate 220 Mg Capsule PO 04/03/20 09:00 220 mg DAILY SERVANDO Administration - Lab Result Fish Bone Diagrams: 03/29/20 04:00 03/29/20 04:00 - Additional Planning My Orders: My Active Orders 03/29/20 Evaluate and Treat OT [OT] Routine Evaluate and Treat PT [PT] Routine 03/29/20 11:00 Docusate Sodium 100Mg Capsule [Colace 100Mg Capsule] 100 mg PO BID risperiDONE [RisperDAL] 0.5 mg PO DAILY 03/29/20 12:00 Lactulose [Enulose] 10 gm PO BID Objective Vital Signs: Vital Signs - 24 hr 03/28/20 03/28/20 03/28/20 18:00 19:00 20:00 Temperature 37.0 C Heart Rate Heart Rate [ Activity] Heart Rate [ 86 87 83 Monitoring electrodes] Heart Rate [ Supine] Respiratory 25 H 18 17 Rate Blood Pressure Blood Pressure [Activity] Blood Pressure 112/52 L 114/59 L 114/55 L [Right Brachial artery] Blood Pressure [Supine] O2 Saturation 93 97 92 03/28/20 03/28/20 03/28/20 20:56 21:00 22:00 Temperature Heart Rate Heart Rate [ Activity] Heart Rate [ 79 83 Monitoring electrodes] Heart Rate [ Supine] Respiratory 17 21 Rate Blood Pressure 108/58 L Blood Pressure [Activity] Blood Pressure 108/58 L 130/77 [Right Brachial artery] Blood Pressure [Supine] O2 Saturation 97 94 03/28/20 03/29/20 03/29/20 23:00 00:00 01:00 Temperature 36.9 C Heart Rate Heart Rate [ Activity] Heart Rate [ 84 89 76 Monitoring electrodes] Heart Rate [ Supine] Respiratory 24 20 21 Rate Blood Pressure Blood Pressure [Activity] Blood Pressure 125/81 H 125/81 H 117/68 [Right Brachial artery] Blood Pressure [Supine] O2 Saturation 92 97 97 03/29/20 03/29/20 03/29/20 02:00 03:00 04:00 Temperature 37.0 C Heart Rate Heart Rate [ Activity] Heart Rate [ 82 81 83 Monitoring electrodes] Heart Rate [ Supine] Respiratory 18 27 H 23 Rate Blood Pressure Blood Pressure [Activity] Blood Pressure 111/61 126/82 H 123/78 [Right Brachial artery] Blood Pressure [Supine] O2 Saturation 98 97 98 03/29/20 03/29/20 03/29/20 05:00 06:00 07:00 Temperature Heart Rate Heart Rate [ Activity] Heart Rate [ 77 86 96 Monitoring electrodes] Heart Rate [ Supine] Respiratory 17 18 21 Rate Blood Pressure Blood Pressure [Activity] Blood Pressure 125/58 L 116/54 L 133/76 H [Right Brachial artery] Blood Pressure [Supine] O2 Saturation 100 99 100 03/29/20 03/29/20 03/29/20 08:00 08:06 09:00 Temperature 36.8 C Heart Rate Heart Rate [ Activity] Heart Rate [ 92 93 Monitoring electrodes] Heart Rate [ Supine] Respiratory 19 16 Rate Blood Pressure 136/71 H Blood Pressure [Activity] Blood Pressure 136/71 H 134/61 H [Right Brachial artery] Blood Pressure [Supine] O2 Saturation 94 99 03/29/20 03/29/20 03/29/20 10:00 11:00 12:00 Temperature 36.9 C Heart Rate Heart Rate [ Activity] Heart Rate [ 86 88 80 Monitoring electrodes] Heart Rate [ Supine] Respiratory 19 21 21 Rate Blood Pressure Blood Pressure [Activity] Blood Pressure 120/64 120/69 114/59 L [Right Brachial artery] Blood Pressure [Supine] O2 Saturation 98 97 97 03/29/20 03/29/20 03/29/20 13:12 16:00 16:20 Temperature 36.7 C Heart Rate 88 Heart Rate [ 91 Activity] Heart Rate [ 85 Monitoring electrodes] Heart Rate [ 82 Supine] Respiratory 20 17 Rate Blood Pressure Blood Pressure 127/62 [Activity] Blood Pressure 107/58 L [Right Brachial artery] Blood Pressure 105/60 [Supine] O2 Saturation 93 Oxygen O2 Source Nasal cannula I&O (Last 24 Hrs): Intake and Output Totals x24h 03/27/20 03/28/20 03/29/20 23:59 23:59 23:59 Intake Total 3440 1700 Output Total 1625 750 Balance 1815 950 General: Alert, Other (Lethergic, flat affect) HEENT: Mucous membr. moist/pink Neck: Supple Neuro: Alert, Other (Confused) Cardiovascular: Other (Tachy, irreg irreg) Respiratory: No respiratory distress, Other (Wearing O2) Abdomen: Soft Extremities: No edema - Results Results: Laboratory Results WBC 5.3 x10^3/uL (4.8-10.8) 03/29/20 04:00 RBC 4.55 10^6/uL (4.20-5.40) 03/29/20 04:00 Hgb 12.4 g/dL (12.0-16.0) 03/29/20 04:00 Hct 42.1 % (37.0-47.0) 03/29/20 04:00 MCV 92.5 fL (81.0-99.0) 03/29/20 04:00 MCH 27.3 pg (27.0-31.0) 03/29/20 04:00 MCHC 29.5 g/dL (32.0-36.0) L 03/29/20 04:00 RDW 15.3 % (12.0-15.0) H 03/29/20 04:00 Plt Count 273 10^3/uL (130-450) 03/29/20 04:00 MPV 10.0 fL (7.9-10.8) 03/29/20 04:00 Neut # (Auto) 3.6 10^3/uL (1.5-6.6) 03/29/20 04:00 Lymph # (Auto) 0.7 10^3/uL (1.5-3.5) L 03/29/20 04:00 [place] # (Auto) 0.9 10^3/uL (0.0-1.0) 03/29/20 04:00 Eos # (Auto) 0.0 10^3/uL (0.0-0.7) 03/29/20 04:00 Baso # (Auto) 0.0 10^3/uL (0.0-0.1) 03/29/20 04:00 Absolute Nucleated RBC 0.00 x10^3/uL 03/29/20 04:00 Nucleated RBC % 0.0 /100WBC 03/29/20 04:00 Bld Gas Analysis Time 0534 03/28/20 05:25 Sample Site LEFT RADIAL 03/28/20 05:25 ABG pH 7.35 (7.35-7.45) 03/28/20 05:25 ABG pCO2 75 mmHg (34-45) H* 03/28/20 05:25 ABG pO2 69 mmHg (80-100) L 03/28/20 05:25 ABG HCO3 40.5 mmol/L (22.0-26.0) H 03/28/20 05:25 ABG Total CO2 42.8 MMOL/L (21.0-29.0) H* 03/28/20 05:25 ABG O2 Saturation 94 % (94-98) 03/28/20 05:25 ABG Base Excess 11.7 mmol/L (-2.0-3.0) H 03/28/20 05:25 Joel Test POSITIVE 03/28/20 05:25 Respiration Rate 18 b/min 03/28/20 05:25 O2 Delivery Device BiPAP 03/28/20 05:25 FiO2 30.00 03/28/20 05:25 EPAP 5 cmH2O 03/28/20 05:25 IPAP 12 cmH2O 03/28/20 05:25 Sodium 136 mmol/L (135-145) 03/29/20 04:00 Potassium 4.4 mmol/L (3.5-5.0) 03/29/20 04:00 Chloride 91 mmol/L (101-111) L 03/29/20 04:00 Carbon Dioxide 37 mmol/L (21-32) H 03/29/20 04:00 Anion Gap 8.0 (6-13) 03/29/20 04:00 BUN 29 mg/dL (6-20) H 03/29/20 04:00 Creatinine 0.8 mg/dL (0.4-1.0) 03/29/20 04:00 Estimated GFR (MDRD) 70 (>89) L 03/29/20 04:00 Glucose 108 mg/dL (70-100) H 03/29/20 04:00 Lactic Acid 1.0 mmol/L (0.5-2.2) 03/27/20 14:15 Calcium 8.4 mg/dL (8.5-10.3) L 03/29/20 04:00 Magnesium 2.4 mg/dL (1.7-2.8) 03/29/20 04:00 Total Bilirubin 0.7 mg/dL (0.2-1.0) 03/27/20 14:15 AST 23 IU/L (10-42) 03/27/20 14:15 ALT 18 IU/L (10-60) 03/27/20 14:15 Alkaline Phosphatase 103 IU/L (42-121) 03/27/20 14:15 Ammonia 37.1 umol/L (7-35) H 03/27/20 20:20 B-Natriuretic Peptide 496 pg/mL (5-100) H 03/28/20 04:37 Total Protein 7.2 g/dL (6.7-8.2) 03/27/20 14:15 Albumin 3.1 g/dL (3.2-5.5) L 03/27/20 14:15 Globulin 4.1 g/dL (2.1-4.2) 03/27/20 14:15 Albumin/Globulin Ratio 0.8 (1.0-2.2) L 03/27/20 14:15 Lipase 16 U/L (22-51) L 03/27/20 14:15 TSH 2.06 uIU/mL (0.34-5.60) 03/27/20 14:15 Urine Color YELLOW 03/27/20 16:18 Urine Clarity CLEAR (CLEAR) 03/27/20 16:18 Urine pH 7.0 PH (5.0-7.5) 03/27/20 16:18 Ur Specific [place] 1.015 (1.002-1.030) 03/27/20 16:18 Urine Protein TRACE mg/dL (NEGATIVE) 03/27/20 16:18 Urine Glucose (UA) NEGATIVE mg/dL (NEGATIVE) 03/27/20 16:18 Urine Ketones TRACE mg/dL (NEGATIVE) 03/27/20 16:18 Urine Occult Blood NEGATIVE (NEGATIVE) 03/27/20 16:18 Urine Nitrite NEGATIVE (NEGATIVE) 03/27/20 16:18 Urine Bilirubin NEGATIVE (NEGATIVE) 03/27/20 16:18 Urine Urobilinogen 0.2 (NORMAL) E.U./dL (NORMAL) 03/27/20 16:18 Ur Leukocyte Esterase NEGATIVE (NEGATIVE) 03/27/20 16:18 Ur Microscopic Review NOT INDICATED 03/27/20 16:18 Urine Culture Comments NOT INDICATED 03/27/20 16:18 Ur Random Chloride 34 mmol/L 03/28/20 12:00 Nasal Adenovirus (PCR) NOT DETECTED 03/27/20 14:53 Nasal B. parapertussis DNA (PCR) NOT DETECTED 03/27/20 14:53 Nasal Coronavir 229E PCR NOT DETECTED 03/27/20 14:53 Nasal Coronavir HKU1 PCR NOT DETECTED 03/27/20 14:53 Nasal Coronavir NL63 PCR NOT DETECTED 03/27/20 14:53 Nasal Coronavir OC43 PCR NOT DETECTED 03/27/20 14:53 Nasal Enterovir/Rhinovir PCR NOT DETECTED 03/27/20 14:53 Nasal Influenza B PCR NOT DETECTED 03/27/20 14:53 Nasal Influenza A PCR NOT DETECTED 03/27/20 14:53 Nasal Parainfluen 1 PCR NOT DETECTED 03/27/20 14:53 Nasal Parainfluen 2 PCR NOT DETECTED 03/27/20 14:53 Nasal Parainfluen 3 PCR NOT DETECTED 03/27/20 14:53 Nasal Parainfluen 4 PCR NOT DETECTED 03/27/20 14:53 Nasal RSV (PCR) NOT DETECTED 03/27/20 14:53 Nasal Screen MRSA (PCR) NEGATIVE (NEGATIVE) 03/27/20 22:00 Nasal B.pertussis DNA PCR NOT DETECTED 03/27/20 14:53 Nasal C.pneumoniae (PCR) NOT DETECTED 03/27/20 14:53 Severo Human Metapneumo PCR NOT DETECTED 03/27/20 14:53 Nasal M.pneumoniae (PCR) NOT DETECTED 03/27/20 14:53 Nasal SARS-CoV-2 (PCR) NOT DETECTED 03/27/20 14:53 - Procedures Procedures: Procedures EXCISION OF ANUS, ENDO, DIAGN (10/28/17) EXCISION OF ESOPHAGUS, ENDO, DIAGN (10/28/17)
--- NOTE | 2020-03-29 18:16 | XRAY Report ---
PROCEDURE: Chest 1 View X-Ray INDICATIONS: Choked on dinner, desaturates TECHNIQUE: One view of the chest was acquired. COMPARISON: 03/27/2020 FINDINGS: Surgical changes and devices: None. Lungs and pleura: Increased interstitial markings in both lungs, particular in the perihilar regions. Small left pleural effusion suspected. Mediastinum: Mediastinal contours appear normal. Heart heart is enlarged similar to the prior study . Bones and chest wall: No suspicious bony lesions. Overlying soft tissues appear unremarkable. IMPRESSION: Cardiomegaly with findings of interstitial pulmonary edema and suspected small left pleural effusion. Reviewed by: Candelario Mathews MD on 03/29/2020 5:14 PM [facility] Approved by: Candelario Mathews MD on 03/29/2020 5:14 PM [facility] Station ID: [id number]
[2020-03-30] MEDS: SODIUM CHLORIDE FLUSH 0.9% 10 ML SYRINGE IVP SCH ×3 (00:39→17:00)
[2020-03-30 05:05] LABS: BASOPHILS % (AUTO) 0.3 %; EOSINOPHILS # (AUTO) 0.1 10^3/uL (0.0-0.7); HGB - HEMOGLOBIN 12.2 g/dL (12.0-16.0); LYMPHOCYTES # (AUTO) 0.6 10^3/uL (1.5-3.5); LYMPHOCYTES % (AUTO) 10.8 %; MEAN CORPUSCULAR HGB CONC 29.2 g/dL (32.0-36.0); MEAN CORPUSCULAR VOLUME 92.5 fL (81.0-99.0); MEAN PLATELET VOLUME 10.2 fL (7.9-10.8); MONOCYTES % (AUTO) 17.4 %; NEUTROPHILS % (AUTO) 70.2 %; PLT - PLATELET COUNT 238 10^3/uL (130-450); RED BLOOD COUNT 4.52 10^6/uL (4.20-5.40); RED CELL DISTRIBUTION WIDTH 15.1 % (12.0-15.0); WHITE BLOOD COUNT 5.7 x10^3/uL (4.8-10.8)
[2020-03-30 05:17] LABS: CALCIUM 8.6 mg/dL (8.5-10.3); CREATININE 0.4 mg/dL (0.4-1.0); MAGNESIUM 2.2 mg/dL (1.7-2.8)
[2020-03-30] MEDS: FERROUS SULFATE 325 MG TABLET PO SCH ×3 (06:10→17:15)
[2020-03-30] MEDS: APIXABAN 5 MG TABLET PO SCH ×2 (08:07→20:58)
[2020-03-30] MEDS: MULTIVITAMIN W/MINERALS TABLET PO SCH (08:07)
[2020-03-30] MEDS: diltiaZEM CD 180 MG CAPSULE PO SCH (08:08)
[2020-03-30] MEDS: ASCORBIC ACID CHEW 500 MG TABLET PO SCH (08:08)
[2020-03-30] MEDS: METOPROLOL TARTRATE 25 MG TABLET PO SCH (08:09)
[2020-03-30] MEDS: DOCUSATE SODIUM 100 MG CAPSULE PO SCH ×2 (08:09→20:58)
[2020-03-30] MEDS: LACTULOSE 10 GM /15 ML UDC PO SCH ×2 (08:09→20:58)
[2020-03-30] MEDS: ZINC SULFATE 220 MG CAPSULE PO SCH (08:12)
[2020-03-30] MEDS: risperiDONE 1 MG TABLET PO SCH (08:12)
[2020-03-30] MEDS ORDERED: MULTIVITAMIN TABLET PO SCH (09:00)
[2020-03-30] MEDS: ZINC OXIDE 20% OINT 30 GM TUBE TOP SCH ×2 (13:00→20:59)
--- NOTE | 2020-03-30 13:13 | PROVIDER PROGRESS NOTE ---
Assessment/Plan - Problem List (1) Altered mental status Qualifiers: Altered mental status type: somnolence Qualified Code(s): R40.0 - Somnolence Assessment/Plan: She continues to seem lethargic, mostly sleeping during the day. She is able to dangle her feet and started working with PT yesterday. She only answers with 1 or 2 word sentences and denies any complaints to me. Will have OT evaluate her cognitive status today>>> the eval was consistent with Dementia, as she scored 9/30 points. (2) Hypoxemia Assessment/Plan: Continues to need supplemental oxygen at low levels, she did not need this at home. Yesterday there was concern regarding aspiration, it was witnessed when she was eating her carrots for dinner. She may have chronic mild aspiration which is giving her pneumonitis and hypoxia. Awaiting an Echo today (3) Choking due to food in larynx Assessment/Plan: This was witnessed by her RN yesterday. Her diet order was deescalated to a pured diet with thin liquids. Swallowing eval by Speech Therapy is pending today. (4) Atrial flutter with rapid ventricular response Assessment/Plan: Continue with meds which are giving her adequate rate control (metoprolol twice daily and Cardizem every morning). Continue anticoagulation with Eliquis, for stroke prophylaxis. (5) Chronic heart failure with preserved ejection fraction Assessment/Plan: Echo ordered to be done today, will help with choices of meds and hydration (6) Chronic abdominal wound infection Qualifiers: Encounter type: subsequent encounter Qualified Code(s): S31.109D - Unspecified open wound of abdominal wall, unspecified quadrant without penetration into peritoneal cavity, subsequent encounter; L08.9 - Local infection of the skin and subcutaneous tissue, unspecified; L08.9 - Local infection of the skin and subcutaneous tissue, unspecified Assessment/Plan: This has been chronic and she did not want repair, stuffed tissues in the fistula which drained stool. Her poor decisions may be reversed when she has an established, legal Guardian. (7) Schizophrenia Qualifiers: Schizophrenia type: unspecified Qualified Code(s): F20.9 - Schizophrenia, unspecified Assessment/Plan: Her home dose of Resperidone has been resumed. (8) Ventral hernia Qualifiers: Obstruction and gangrene presence: without obstruction or gangrene Qualified Code(s): K43.9 - Ventral hernia without obstruction or gangrene Assessment/Plan: This was reduced at presentation in the ER. She denies pain there or anywher to me today. (9) Chilblain Assessment/Plan: This was the admission MDs impression. (10) Obesity (BMI 30-39.9) Assessment/Plan: As per Hx (11) Abdominal pain Assessment/Plan: Resolved - Current Meds Current Meds: Current Medications Generic Name Dose Route Start Last Admin Trade Name Freq PRN Reason Stop Dose Admin Al Hydroxide/Mg Hydroxide 30 ml 03/28/20 21:42 03/28/20 22:13 Mag Hydrox/Al Hydrox/Simeth 30 Ml Udc PO 30 ml Q4HR PRN Administration INDIGESTION Apixaban 5 mg 03/27/20 21:00 03/30/20 08:07 Apixaban 5 Mg Tablet PO 5 mg BID SERVANDO Administration Ascorbic Acid 500 mg 03/29/20 09:00 03/30/20 08:08 Ascorbic Acid Chew 500 Mg Tablet PO 500 mg DAILY SERVANDO Administration Diltiazem HCl 180 mg 03/28/20 09:00 03/30/20 08:08 Diltiazem Cd 180 Mg Capsule PO 180 mg DAILY SERVANDO Administration Docusate Sodium 100 mg 03/29/20 11:00 03/30/20 08:09 Docusate Sodium 100 Mg Capsule PO 100 mg BID SERVANDO Administration Ferrous Sulfate 325 mg 03/30/20 12:00 03/30/20 11:46 Ferrous Sulfate 325 Mg Tablet PO 325 mg TIDWM SERVANDO Administration Lactulose 10 gm 03/29/20 12:00 03/30/20 08:09 Lactulose 10 Gm /15 Ml Udc PO 10 gm BID SERVANDO Administration Metoprolol Tartrate 25 mg 03/27/20 21:00 03/30/20 08:09 Metoprolol Tartrate 25 Mg Tablet PO 25 mg BID SERVANDO Administration Multi-Ingredient Ointment 1 applic 03/30/20 09:00 03/30/20 13:00 Zinc Oxide 20% Oint 30 Gm Tube TOP 1 applic BID SERVANDO Administration Multivitamins/Minerals 1 tab 03/28/20 15:00 03/30/20 08:07 Multivitamin W/Minerals Tablet PO 1 tab DAILYWM SERVANDO Administration Risperidone 0.5 mg 03/29/20 11:00 03/30/20 08:12 Risperidone 1 Mg Tablet PO 0.5 mg DAILY SERVANDO Administration Sodium Chloride 10 ml 03/28/20 01:00 03/30/20 08:12 Sodium Chloride Flush 0.9% 10 Ml Syringe IVP 10 ml 0100,0900,1700 SERVANDO Administration Zinc Sulfate 220 mg 03/29/20 09:00 03/30/20 08:12 Zinc Sulfate 220 Mg Capsule PO 04/03/20 09:00 220 mg DAILY SERVANDO Administration - Lab Result Fish Bone Diagrams: 03/30/20 04:20 03/30/20 04:20 - Additional Planning My Orders: My Active Orders 03/29/20 17:56 Telemetry- [RC] Q4HR 03/30/20 COVID-19 REFERENCE TEST Routine Evaluate and Treat OT [OT] Routine 03/30/20 Breakfast Dysphagia Puree Diet [DIET] Soft Mechanical Diet [DIET] 03/30/20 08:00 Echo Transthoracic Complete [ECHO] Routine 03/30/20 09:00 Zinc Oxide 20% Oint [Zinc Oxide] 1 applic TOP BID Subjective - Subjective Patient Reports: No Complaints (Minimally communicative) Nursing Reports: Other (lethargic) Objective Vital Signs: Vital Signs - 24 hr 03/29/20 03/29/20 03/29/20 13:12 13:30 16:00 Temperature 36.7 C Heart Rate Heart Rate [ 91 91 Activity] Heart Rate [ 85 Monitoring electrodes] Heart Rate [ 82 82 Supine] Respiratory 20 Rate Blood Pressure Blood Pressure 127/62 127/62 [Activity] Blood Pressure 107/58 L [Right Brachial artery] Blood Pressure 105/60 105/60 [Supine] O2 Saturation 93 03/29/20 03/29/20 03/29/20 16:20 20:00 21:33 Temperature 36.8 C Heart Rate 88 Heart Rate [ Activity] Heart Rate [ 82 Monitoring electrodes] Heart Rate [ Supine] Respiratory 17 18 Rate Blood Pressure 114/50 L Blood Pressure [Activity] Blood Pressure 114/50 L [Right Brachial artery] Blood Pressure [Supine] O2 Saturation 97 03/30/20 03/30/20 03/30/20 00:00 04:00 07:51 Temperature 36.7 C 37.0 C 36.8 C Heart Rate Heart Rate [ Activity] Heart Rate [ 69 88 97 Monitoring electrodes] Heart Rate [ Supine] Respiratory 21 21 22 Rate Blood Pressure Blood Pressure [Activity] Blood Pressure 120/73 125/57 L 138/86 H [Right Brachial artery] Blood Pressure [Supine] O2 Saturation 94 92 96 03/30/20 03/30/20 03/30/20 08:00 08:09 13:00 Temperature Heart Rate 102 H Heart Rate [ Activity] Heart Rate [ 104 H Monitoring electrodes] Heart Rate [ Supine] Respiratory 19 24 Rate Blood Pressure 138/86 H Blood Pressure [Activity] Blood Pressure 135/56 H [Right Brachial artery] Blood Pressure [Supine] O2 Saturation 62 L Oxygen O2 Source Nasal cannula I&O (Last 24 Hrs): Intake and Output Totals x24h 03/28/20 03/29/20 03/30/20 23:59 23:59 23:59 Intake Total 3440 1820 980 Output Total 9669 898 9418 Balance 1815 1070 -170 General: Other (Wake but lethargic, stares at one spot in her bed) HEENT: Mucous membr. moist/pink Neck: Supple, No JVD Neuro: Disoriented, Non Focal Cardiovascular: No murmurs, Other (Irreg irreg) Respiratory: No respiratory distress, Other (O2 per n.c.) Abdomen: Normal bowel sounds, Soft Extremities: Other (Trace pretibial edema, mild venous stasis changes, redness of various toes and deformity of her distal feet) - Results Results: Laboratory Results WBC 5.7 x10^3/uL (4.8-10.8) 03/30/20 04:20 RBC 4.52 10^6/uL (4.20-5.40) 03/30/20 04:20 Hgb 12.2 g/dL (12.0-16.0) 03/30/20 04:20 Hct 41.8 % (37.0-47.0) 03/30/20 04:20 MCV 92.5 fL (81.0-99.0) 03/30/20 04:20 MCH 27.0 pg (27.0-31.0) 03/30/20 04:20 MCHC 29.2 g/dL (32.0-36.0) L 03/30/20 04:20 RDW 15.1 % (12.0-15.0) H 03/30/20 04:20 Plt Count 238 10^3/uL (130-450) 03/30/20 04:20 MPV 10.2 fL (7.9-10.8) 03/30/20 04:20 Neut # (Auto) 4.0 10^3/uL (1.5-6.6) 03/30/20 04:20 Lymph # (Auto) 0.6 10^3/uL (1.5-3.5) L 03/30/20 04:20 [place] # (Auto) 1.0 10^3/uL (0.0-1.0) 03/30/20 04:20 Eos # (Auto) 0.1 10^3/uL (0.0-0.7) 03/30/20 04:20 Baso # (Auto) 0.0 10^3/uL (0.0-0.1) 03/30/20 04:20 Absolute Nucleated RBC 0.00 x10^3/uL 03/30/20 04:20 Nucleated RBC % 0.0 /100WBC 03/30/20 04:20 Bld Gas Analysis Time 0534 03/28/20 05:25 Sample Site LEFT RADIAL 03/28/20 05:25 ABG pH 7.35 (7.35-7.45) 03/28/20 05:25 ABG pCO2 75 mmHg (34-45) H* 03/28/20 05:25 ABG pO2 69 mmHg (80-100) L 03/28/20 05:25 ABG HCO3 40.5 mmol/L (22.0-26.0) H 03/28/20 05:25 ABG Total CO2 42.8 MMOL/L (21.0-29.0) H* 03/28/20 05:25 ABG O2 Saturation 94 % (94-98) 03/28/20 05:25 ABG Base Excess 11.7 mmol/L (-2.0-3.0) H 03/28/20 05:25 Joel Test POSITIVE 03/28/20 05:25 Respiration Rate 18 b/min 03/28/20 05:25 O2 Delivery Device BiPAP 03/28/20 05:25 FiO2 30.00 03/28/20 05:25 EPAP 5 cmH2O 03/28/20 05:25 IPAP 12 cmH2O 03/28/20 05:25 Sodium 138 mmol/L (135-145) 03/30/20 04:20 Potassium 3.7 mmol/L (3.5-5.0) 03/30/20 04:20 Chloride 93 mmol/L (101-111) L 03/30/20 04:20 Carbon Dioxide 39 mmol/L (21-32) H* 03/30/20 04:20 Anion Gap 6.0 (6-13) 03/30/20 04:20 BUN 12 mg/dL (6-20) 03/30/20 04:20 Creatinine 0.4 mg/dL (0.4-1.0) 03/30/20 04:20 Estimated GFR (MDRD) 155 (>89) 03/30/20 04:20 Glucose 111 mg/dL (70-100) H 03/30/20 04:20 Lactic Acid 1.0 mmol/L (0.5-2.2) 03/27/20 14:15 Calcium 8.6 mg/dL (8.5-10.3) 03/30/20 04:20 Magnesium 2.2 mg/dL (1.7-2.8) 03/30/20 04:20 Total Bilirubin 0.7 mg/dL (0.2-1.0) 03/27/20 14:15 AST 23 IU/L (10-42) 03/27/20 14:15 ALT 18 IU/L (10-60) 03/27/20 14:15 Alkaline Phosphatase 103 IU/L (42-121) 03/27/20 14:15 Ammonia 37.1 umol/L (7-35) H 03/27/20 20:20 B-Natriuretic Peptide 496 pg/mL (5-100) H 03/28/20 04:37 Total Protein 7.2 g/dL (6.7-8.2) 03/27/20 14:15 Albumin 3.1 g/dL (3.2-5.5) L 03/27/20 14:15 Globulin 4.1 g/dL (2.1-4.2) 03/27/20 14:15 Albumin/Globulin Ratio 0.8 (1.0-2.2) L 03/27/20 14:15 Lipase 16 U/L (22-51) L 03/27/20 14:15 TSH 2.06 uIU/mL (0.34-5.60) 03/27/20 14:15 Urine Color YELLOW 03/27/20 16:18 Urine Clarity CLEAR (CLEAR) 03/27/20 16:18 Urine pH 7.0 PH (5.0-7.5) 03/27/20 16:18 Ur Specific [place] 1.015 (1.002-1.030) 03/27/20 16:18 Urine Protein TRACE mg/dL (NEGATIVE) 03/27/20 16:18 Urine Glucose (UA) NEGATIVE mg/dL (NEGATIVE) 03/27/20 16:18 Urine Ketones TRACE mg/dL (NEGATIVE) 03/27/20 16:18 Urine Occult Blood NEGATIVE (NEGATIVE) 03/27/20 16:18 Urine Nitrite NEGATIVE (NEGATIVE) 03/27/20 16:18 Urine Bilirubin NEGATIVE (NEGATIVE) 03/27/20 16:18 Urine Urobilinogen 0.2 (NORMAL) E.U./dL (NORMAL) 03/27/20 16:18 Ur Leukocyte Esterase NEGATIVE (NEGATIVE) 03/27/20 16:18 Ur Microscopic Review NOT INDICATED 03/27/20 16:18 Urine Culture Comments NOT INDICATED 03/27/20 16:18 Ur Random Chloride 34 mmol/L 03/28/20 12:00 Nasal Adenovirus (PCR) NOT DETECTED 03/27/20 14:53 Nasal B. parapertussis DNA (PCR) NOT DETECTED 03/27/20 14:53 Nasal Coronavir 229E PCR NOT DETECTED 03/27/20 14:53 Nasal Coronavir HKU1 PCR NOT DETECTED 03/27/20 14:53 Nasal Coronavir NL63 PCR NOT DETECTED 03/27/20 14:53 Nasal Coronavir OC43 PCR NOT DETECTED 03/27/20 14:53 Nasal Enterovir/Rhinovir PCR NOT DETECTED 03/27/20 14:53 Nasal Influenza B PCR NOT DETECTED 03/27/20 14:53 Nasal Influenza A PCR NOT DETECTED 03/27/20 14:53 Nasal Parainfluen 1 PCR NOT DETECTED 03/27/20 14:53 Nasal Parainfluen 2 PCR NOT DETECTED 03/27/20 14:53 Nasal Parainfluen 3 PCR NOT DETECTED 03/27/20 14:53 Nasal Parainfluen 4 PCR NOT DETECTED 03/27/20 14:53 Nasal RSV (PCR) NOT DETECTED 03/27/20 14:53 Nasal Screen MRSA (PCR) NEGATIVE (NEGATIVE) 03/27/20 22:00 Nasal B.pertussis DNA PCR NOT DETECTED 03/27/20 14:53 Nasal C.pneumoniae (PCR) NOT DETECTED 03/27/20 14:53 Severo Human Metapneumo PCR NOT DETECTED 03/27/20 14:53 Nasal M.pneumoniae (PCR) NOT DETECTED 03/27/20 14:53 Nasal SARS-CoV-2 (PCR) NOT DETECTED 03/27/20 14:53 - Procedures Procedures: Procedures EXCISION OF ANUS, ENDO, DIAGN (10/28/17) EXCISION OF ESOPHAGUS, ENDO, DIAGN (10/28/17)
[2020-03-30] MEDS: diltiaZEM CD 120 MG CAPSULE PO SCH (20:58)
[2020-03-30] MEDS: METOPROLOL SUCCINATE 25 MG TABLET PO SCH (20:58)
[2020-03-31] MEDS: SODIUM CHLORIDE FLUSH 0.9% 10 ML SYRINGE IVP SCH ×4 (00:09→23:37)
[2020-03-31 05:30] LABS: BASOPHILS % (AUTO) 0.4 %; EOSINOPHILS # (AUTO) 0.2 10^3/uL (0.0-0.7); LYMPHOCYTES # (AUTO) 1.1 10^3/uL (1.5-3.5); MEAN CORPUSCULAR HEMOGLOBIN 26.9 pg (27.0-31.0); MEAN CORPUSCULAR HGB CONC 28.1 g/dL (32.0-36.0); MEAN CORPUSCULAR VOLUME 95.7 fL (81.0-99.0); MEAN PLATELET VOLUME 9.8 fL (7.9-10.8); MONOCYTES # (AUTO) 0.7 10^3/uL (0.0-1.0); MONOCYTES % (AUTO) 10.1 %; NEUTROPHILS # (AUTO) 5.1 10^3/uL (1.5-6.6); NEUTROPHILS % (AUTO) 71.2 %; PLT - PLATELET COUNT 198 10^3/uL (130-450); RED BLOOD COUNT 4.83 10^6/uL (4.20-5.40); RED CELL DISTRIBUTION WIDTH 15.3 % (12.0-15.0); WHITE BLOOD COUNT 7.2 x10^3/uL (4.8-10.8)
[2020-03-31 05:40] LABS: CALCIUM 8.8 mg/dL (8.5-10.3); CREATININE 0.5 mg/dL (0.4-1.0); MAGNESIUM 2.2 mg/dL (1.7-2.8)
[2020-03-31] MEDS: ALBUTEROL NEB 2.5 MG/3 ML INH PRN (07:31)
[2020-03-31] MEDS: FERROUS SULFATE 325 MG TABLET PO SCH ×3 (07:56→16:51)
[2020-03-31] MEDS: MULTIVITAMIN W/MINERALS TABLET PO SCH (07:56)
[2020-03-31] MEDS ORDERED: FUROSEMIDE 20 MG/2 ML VIAL IVP STA (08:18)
--- NOTE | 2020-03-31 08:33 | PROVIDER PROGRESS NOTE ---
Assessment/Plan - Problem List (1) Hypoxemia Assessment/Plan: She continues to require 1.5 to 2 L oxygen nasal cannula or desaturates even below 80%. Chest x-ray had been done that showed mild CHF plus pleural effusions, no infiltrate was seen (after the choking episode, see below). Will give a dose of Lasix IV 20 mg x 1 today. She may need Lasix daily since the EF is slightly depressed. Not ready for discharge yet. If she continues to need supplemental oxygen even after diuresis, she will need a walking oximetry test for a order for home O2 at discharge (2) Chronic heart failure with preserved ejection fraction Assessment/Plan: Her LVEF is slightly reduced at 45% and she has diastolic dysfunction. She also has moder-severe pulmonary hypertension with PA pressure 67 mmHg. Heart rate control is important in this case, therefore beta-estrella plus Cardizem are being used. She will get a dose of Lasix starting today. O2 supplemental as needed still. No ELIZABETH inhibitor or ARB has been added yet because blood pressure was "soft" and we needed room because her heart rate meds are being increased. (3) Choking due to food in larynx Assessment/Plan: Several days ago she had witnessed choking on her dinner (boiled carrots). There was no aspiration pneumonia on CXR. Yesterday she underwent swallowing eval by ST. The impression by the speech therapist was that she is impulsive in her eating because of her schizophrenia and does not chew because she has only 2 teeth in her mouth. Her diet was changed to pured and thin liquids. (4) Atrial flutter with rapid ventricular response Assessment/Plan: She was still intermittently tachycardic the past 3 days. Her medications are being adjusted and spread out: Metoprolol tartrate twice daily has been changed to metoprolol succinate twice daily starting today. Cardizem CD 180 in the morning only has been changed to Cardizem CD 120 twice daily starting today. Continue with telemetry, especially during PT activity, to assess if adequate HR control. Continue her Eliquis twice daily dose (5) Dementia Assessment/Plan: She only answers with 1 or 2 word sentences and denies any complaints to me. OT evaluated her cognitive status yesterday and found she has Dementia, as she scored 9/30 points. 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 There is a pending case in front of a roundsman on 04/18/2020, to assign her a legal guardian. I completed paperwork on this yesterday regarding her medical/psychological status and gave it to Chief Of Field Operations Shari Melendez. (6) Schizophrenia Qualifiers: Schizophrenia type: unspecified Qualified Code(s): F20.9 - Schizophrenia, unspecified Assessment/Plan: Stable, on her home dose of Risperidone. The Speech Therapist did note that she is impulsive, when her swallowing evaluation was done yesterday. 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 She did not want it repaired in the past. Her wishes were respected and no repair was ever done, it was not causing serious off enough illness to require admission. Because she will now be having a legal guardian make decisions for her after a Apr 18 roundsman ruling, this fistula will probably need a repair in the upcoming months. (8) Ventral hernia Qualifiers: Obstruction and gangrene presence: without obstruction or gangrene Qualified Code(s): K43.9 - Ventral hernia without obstruction or gangrene Assessment/Plan: This was reduced in the ER at admission and is stable currently. No binder was ordered by Gen Surgery. (9) Chilblain Assessment/Plan: This was the impression of the previous Provider regarding her toes. 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 (10) Obesity (BMI 30-39.9) Assessment/Plan: As per Hx (11) Abdominal pain Assessment/Plan: Resolved and she is eating 100% of diet. - Current Meds Current Meds: Current Medications Generic Name Dose Route Start Last Admin Trade Name Freq PRN Reason Stop Dose Admin Al Hydroxide/Mg Hydroxide 30 ml 03/28/20 21:42 03/28/20 22:13 Mag Hydrox/Al Hydrox/Simeth 30 Ml Udc PO 30 ml Q4HR PRN Administration INDIGESTION Albuterol 2.5 mg 03/27/20 19:44 03/31/20 07:31 Albuterol Neb 2.5 Mg/3 Ml INH 2.5 mg RTQ4H PRN Administration Wheezing Apixaban 5 mg 03/27/20 21:00 03/30/20 20:58 Apixaban 5 Mg Tablet PO 5 mg BID SERVANDO Administration Ascorbic Acid 500 mg 03/29/20 09:00 03/30/20 08:08 Ascorbic Acid Chew 500 Mg Tablet PO 500 mg DAILY SERVANDO Administration Diltiazem HCl 120 mg 03/30/20 21:00 03/30/20 20:58 Diltiazem Cd 120 Mg Capsule PO 120 mg BID SERVANDO Administration Docusate Sodium 100 mg 03/29/20 11:00 03/30/20 20:58 Docusate Sodium 100 Mg Capsule PO 100 mg BID SERVANDO Administration Ferrous Sulfate 325 mg 03/30/20 12:00 03/31/20 07:56 Ferrous Sulfate 325 Mg Tablet PO 325 mg TIDWM SERVANDO Administration Lactulose 10 gm 03/29/20 12:00 03/30/20 20:58 Lactulose 10 Gm /15 Ml Udc PO 10 gm BID SERVANDO Administration Metoprolol Succinate 25 mg 03/30/20 21:00 03/30/20 20:58 Metoprolol Succinate 25 Mg Tablet PO 25 mg BID SERVANDO Administration Multi-Ingredient Ointment 1 applic 03/30/20 09:00 03/30/20 20:59 Zinc Oxide 20% Oint 30 Gm Tube TOP 1 applic BID SERVANDO Administration Multivitamins/Minerals 1 tab 03/28/20 15:00 03/31/20 07:56 Multivitamin W/Minerals Tablet PO 1 tab DAILYWM SERVANDO Administration Risperidone 0.5 mg 03/29/20 11:00 03/30/20 08:12 Risperidone 1 Mg Tablet PO 0.5 mg DAILY SERVANDO Administration Sodium Chloride 10 ml 03/28/20 01:00 03/31/20 00:09 Sodium Chloride Flush 0.9% 10 Ml Syringe IVP 10 ml 0100,0900,1700 SERVANDO Administration Zinc Sulfate 220 mg 03/29/20 09:00 03/30/20 08:12 Zinc Sulfate 220 Mg Capsule PO 04/03/20 09:00 220 mg DAILY SERVANDO Administration - Lab Result Fish Bone Diagrams: 03/31/20 05:25 03/31/20 05:25 - Additional Planning My Orders: My Active Orders 03/30/20 08:00 Echo Transthoracic Complete [ECHO] Routine 03/30/20 09:00 Zinc Oxide 20% Oint [Zinc Oxide] 1 applic TOP BID 03/30/20 21:00 Metoprolol Succinate [Toprol Xl] 25 mg PO BID [id number] CD [Cardizem Cd] 120 mg PO BID 03/31/20 08:20 Miscellaenous Nursing Order [RC] ONCE Subjective - Subjective Patient Reports: Resting Comfortably Nursing Reports: Other (He sleeps every day till about lunchtime then eats and is active in the afternoon) Objective Vital Signs: Vital Signs - 24 hr 03/30/20 03/30/20 03/30/20 13:00 16:05 16:20 Temperature 36.5 C Heart Rate 79 Heart Rate [ Brachial] Heart Rate [ 104 H 88 Monitoring electrodes] Respiratory 24 21 19 Rate Blood Pressure 135/56 H 124/53 L [Right Brachial artery] O2 Saturation 62 L 99 03/30/20 03/31/20 03/31/20 20:00 00:09 05:00 Temperature 36.4 C L 36.3 C L 36.9 C Heart Rate Heart Rate [ 86 Brachial] Heart Rate [ 72 89 Monitoring electrodes] Respiratory 20 20 20 Rate Blood Pressure 131/61 H 131/74 H 136/67 H [Right Brachial artery] O2 Saturation 94 92 94 03/31/20 03/31/20 07:32 08:10 Temperature 36.9 C Heart Rate 89 Heart Rate [ Brachial] Heart Rate [ 106 H Monitoring electrodes] Respiratory 12 20 Rate Blood Pressure 127/65 [Right Brachial artery] O2 Saturation 94 Oxygen O2 Source Nasal cannula I&O (Last 24 Hrs): Intake and Output Totals x24h 03/29/20 03/30/20 03/31/20 23:59 23:59 23:59 Intake Total 1820 1350 480 Output Total 750 1325 700 Balance 1070 25 -220 General: Other (Sleeping) HEENT: Mucous membr. moist/pink Neck: Supple Neuro: Other (Asleep) Cardiovascular: No murmurs Respiratory: No respiratory distress, Other (wearing O2 n.c.) Abdomen: Soft Extremities: No edema, Other (Red toes, venous stasis) - Results Results: Laboratory Results WBC 7.2 x10^3/uL (4.8-10.8) 03/31/20 05:25 RBC 4.83 10^6/uL (4.20-5.40) 03/31/20 05:25 Hgb 13.0 g/dL (12.0-16.0) 03/31/20 05:25 Hct 46.2 % (37.0-47.0) 03/31/20 05:25 MCV 95.7 fL (81.0-99.0) 03/31/20 05:25 MCH 26.9 pg (27.0-31.0) L 03/31/20 05:25 MCHC 28.1 g/dL (32.0-36.0) L 03/31/20 05:25 RDW 15.3 % (12.0-15.0) H 03/31/20 05:25 Plt Count 198 10^3/uL (130-450) 03/31/20 05:25 MPV 9.8 fL (7.9-10.8) 03/31/20 05:25 Neut # (Auto) 5.1 10^3/uL (1.5-6.6) 03/31/20 05:25 Lymph # (Auto) 1.1 10^3/uL (1.5-3.5) L 03/31/20 05:25 Caroline # (Auto) 0.7 10^3/uL (0.0-1.0) 03/31/20 05:25 Eos # (Auto) 0.2 10^3/uL (0.0-0.7) 03/31/20 05:25 Baso # (Auto) 0.0 10^3/uL (0.0-0.1) 03/31/20 05:25 Absolute Nucleated RBC 0.00 x10^3/uL 03/31/20 05:25 Nucleated RBC % 0.0 /100WBC 03/31/20 05:25 Bld Gas Analysis Time 0534 03/28/20 05:25 Sample Site LEFT RADIAL 03/28/20 05:25 ABG pH 7.35 (7.35-7.45) 03/28/20 05:25 ABG pCO2 75 mmHg (34-45) H* 03/28/20 05:25 ABG pO2 69 mmHg (80-100) L 03/28/20 05:25 ABG HCO3 40.5 mmol/L (22.0-26.0) H 03/28/20 05:25 ABG Total CO2 42.8 MMOL/L (21.0-29.0) H* 03/28/20 05:25 ABG O2 Saturation 94 % (94-98) 03/28/20 05:25 ABG Base Excess 11.7 mmol/L (-2.0-3.0) H 03/28/20 05:25 Joel Test POSITIVE 03/28/20 05:25 Respiration Rate 18 b/min 03/28/20 05:25 O2 Delivery Device BiPAP 03/28/20 05:25 FiO2 30.00 03/28/20 05:25 EPAP 5 cmH2O 03/28/20 05:25 IPAP 12 cmH2O 03/28/20 05:25 Sodium 145 mmol/L (135-145) 03/31/20 05:25 Potassium 4.2 mmol/L (3.5-5.0) 03/31/20 05:25 Chloride 93 mmol/L (101-111) L 03/31/20 05:25 Carbon Dioxide 38 mmol/L (21-32) H 03/31/20 05:25 Anion Gap 14.0 (6-13) H 03/31/20 05:25 BUN 11 mg/dL (6-20) 03/31/20 05:25 Creatinine 0.5 mg/dL (0.4-1.0) 03/31/20 05:25 Estimated GFR (MDRD) 120 (>89) 03/31/20 05:25 Glucose 97 mg/dL (70-100) 03/31/20 05:25 Lactic Acid 1.0 mmol/L (0.5-2.2) 03/27/20 14:15 Calcium 8.8 mg/dL (8.5-10.3) 03/31/20 05:25 Magnesium 2.2 mg/dL (1.7-2.8) 03/31/20 05:25 Total Bilirubin 0.7 mg/dL (0.2-1.0) 03/27/20 14:15 AST 23 IU/L (10-42) 03/27/20 14:15 ALT 18 IU/L (10-60) 03/27/20 14:15 Alkaline Phosphatase 103 IU/L (42-121) 03/27/20 14:15 Ammonia 37.1 umol/L (7-35) H 03/27/20 20:20 B-Natriuretic Peptide 496 pg/mL (5-100) H 03/28/20 04:37 Total Protein 7.2 g/dL (6.7-8.2) 03/27/20 14:15 Albumin 3.1 g/dL (3.2-5.5) L 03/27/20 14:15 Globulin 4.1 g/dL (2.1-4.2) 03/27/20 14:15 Albumin/Globulin Ratio 0.8 (1.0-2.2) L 03/27/20 14:15 Lipase 16 U/L (22-51) L 03/27/20 14:15 TSH 2.06 uIU/mL (0.34-5.60) 03/27/20 14:15 Urine Color YELLOW 03/27/20 16:18 Urine Clarity CLEAR (CLEAR) 03/27/20 16:18 Urine pH 7.0 PH (5.0-7.5) 03/27/20 16:18 Ur Specific Ray 1.015 (1.002-1.030) 03/27/20 16:18 Urine Protein TRACE mg/dL (NEGATIVE) 03/27/20 16:18 Urine Glucose (UA) NEGATIVE mg/dL (NEGATIVE) 03/27/20 16:18 Urine Ketones TRACE mg/dL (NEGATIVE) 03/27/20 16:18 Urine Occult Blood NEGATIVE (NEGATIVE) 03/27/20 16:18 Urine Nitrite NEGATIVE (NEGATIVE) 03/27/20 16:18 Urine Bilirubin NEGATIVE (NEGATIVE) 03/27/20 16:18 Urine Urobilinogen 0.2 (NORMAL) E.U./dL (NORMAL) 03/27/20 16:18 Ur Leukocyte Esterase NEGATIVE (NEGATIVE) 03/27/20 16:18 Ur Microscopic Review NOT INDICATED 03/27/20 16:18 Urine Culture Comments NOT INDICATED 03/27/20 16:18 Ur Random Chloride 34 mmol/L 03/28/20 12:00 Nasal Adenovirus (PCR) NOT DETECTED 03/27/20 14:53 Nasal B. parapertussis DNA (PCR) NOT DETECTED 03/27/20 14:53 Nasal Coronavir 229E PCR NOT DETECTED 03/27/20 14:53 Nasal Coronavir HKU1 PCR NOT DETECTED 03/27/20 14:53 Nasal Coronavir NL63 PCR NOT DETECTED 03/27/20 14:53 Nasal Coronavir OC43 PCR NOT DETECTED 03/27/20 14:53 Nasal Enterovir/Rhinovir PCR NOT DETECTED 03/27/20 14:53 Nasal Influenza B PCR NOT DETECTED 03/27/20 14:53 Nasal Influenza A PCR NOT DETECTED 03/27/20 14:53 Nasal Parainfluen 1 PCR NOT DETECTED 03/27/20 14:53 Nasal Parainfluen 2 PCR NOT DETECTED 03/27/20 14:53 Nasal Parainfluen 3 PCR NOT DETECTED 03/27/20 14:53 Nasal Parainfluen 4 PCR NOT DETECTED 03/27/20 14:53 Nasal RSV (PCR) NOT DETECTED 03/27/20 14:53 Nasal Screen MRSA (PCR) NEGATIVE (NEGATIVE) 03/27/20 22:00 Nasal B.pertussis DNA PCR NOT DETECTED 03/27/20 14:53 Nasal C.pneumoniae (PCR) NOT DETECTED 03/27/20 14:53 Severo Human Metapneumo PCR NOT DETECTED 03/27/20 14:53 Nasal M.pneumoniae (PCR) NOT DETECTED 03/27/20 14:53 Nasal SARS-CoV-2 (PCR) NOT DETECTED 03/27/20 14:53 - Procedures Procedures: Procedures EXCISION OF ANUS, ENDO, DIAGN (10/28/17) EXCISION OF ESOPHAGUS, ENDO, DIAGN (10/28/17)
[2020-03-31] MEDS: LACTULOSE 10 GM /15 ML UDC PO SCH ×2 (08:45→21:15)
[2020-03-31] MEDS: APIXABAN 5 MG TABLET PO SCH ×2 (08:45→21:15)
[2020-03-31] MEDS: ZINC SULFATE 220 MG CAPSULE PO SCH (08:46)
[2020-03-31] MEDS: risperiDONE 1 MG TABLET PO SCH (08:46)
[2020-03-31] MEDS: METOPROLOL SUCCINATE 25 MG TABLET PO SCH ×2 (08:46→21:14)
[2020-03-31] MEDS: ASCORBIC ACID CHEW 500 MG TABLET PO SCH (08:46)
[2020-03-31] MEDS: diltiaZEM CD 120 MG CAPSULE PO SCH ×2 (08:57→21:15)
[2020-03-31] MEDS: ZINC OXIDE 20% OINT 30 GM TUBE TOP SCH ×2 (08:58→21:46)
[2020-03-31] MEDS: DOCUSATE SODIUM 100 MG CAPSULE PO SCH ×2 (08:58→21:15)
[2020-04-01] MEDS: ACETAMINOPHEN 325 MG TABLET PO PRN ×2 (02:39→16:17)
[2020-04-01 05:13] LABS: BASOPHILS % (AUTO) 0.5 %; EOSINOPHILS # (AUTO) 0.3 10^3/uL (0.0-0.7); EOSINOPHILS % (AUTO) 4.5 %; HGB - HEMOGLOBIN 12.2 g/dL (12.0-16.0); LYMPHOCYTES # (AUTO) 1.1 10^3/uL (1.5-3.5); LYMPHOCYTES % (AUTO) 14.5 %; MEAN CORPUSCULAR HGB CONC 29.3 g/dL (32.0-36.0); MONOCYTES # (AUTO) 0.7 10^3/uL (0.0-1.0); MONOCYTES % (AUTO) 9.3 %; NEUTROPHILS # (AUTO) 5.2 10^3/uL (1.5-6.6); NEUTROPHILS % (AUTO) 70.8 %; PLT - PLATELET COUNT 231 10^3/uL (130-450); RED BLOOD COUNT 4.52 10^6/uL (4.20-5.40); RED CELL DISTRIBUTION WIDTH 15.2 % (12.0-15.0); WHITE BLOOD COUNT 7.3 x10^3/uL (4.8-10.8)
[2020-04-01 05:30] LABS: CALCIUM 8.9 mg/dL (8.5-10.3); CREATININE 0.5 mg/dL (0.4-1.0); MAGNESIUM 1.9 mg/dL (1.7-2.8)
[2020-04-01] MEDS: ALBUTEROL NEB 2.5 MG/3 ML INH PRN (08:06)
[2020-04-01] MEDS: APIXABAN 5 MG TABLET PO SCH ×2 (08:53→20:55)
[2020-04-01] MEDS: METOPROLOL SUCCINATE 25 MG TABLET PO SCH ×2 (08:53→20:55)
[2020-04-01] MEDS: FERROUS SULFATE 325 MG TABLET PO SCH ×3 (08:54→16:17)
[2020-04-01] MEDS: diltiaZEM CD 120 MG CAPSULE PO SCH ×2 (08:54→20:55)
[2020-04-01] MEDS: MULTIVITAMIN W/MINERALS TABLET PO SCH (08:54)
[2020-04-01] MEDS: ASCORBIC ACID CHEW 500 MG TABLET PO SCH (08:54)
[2020-04-01] MEDS: risperiDONE 1 MG TABLET PO SCH (08:54)
[2020-04-01] MEDS: DOCUSATE SODIUM 100 MG CAPSULE PO SCH ×2 (08:54→20:56)
[2020-04-01] MEDS: ZINC SULFATE 220 MG CAPSULE PO SCH (08:54)
[2020-04-01] MEDS: LACTULOSE 10 GM /15 ML UDC PO SCH ×2 (08:56→20:57)
[2020-04-01] MEDS: SODIUM CHLORIDE FLUSH 0.9% 10 ML SYRINGE IVP SCH ×3 (08:56→23:46)
[2020-04-01] MEDS ORDERED: FUROSEMIDE 20 MG TABLET PO STA (12:07)
[2020-04-01] MEDS: ZINC OXIDE 20% OINT 30 GM TUBE TOP SCH ×2 (12:26→20:55)
[2020-04-01] MEDS: HYDROCORTISONE 1% CREAM 28 GM TUBE TOP SCH ×2 (12:26→20:55)
--- NOTE | 2020-04-01 14:16 | PROVIDER PROGRESS NOTE ---
Assessment/Plan - Problem List (1) Hypoxemia Assessment/Plan: She still desaturates to 87% on RA Will give one more dose of Lasix./ She may need daily Lasix, with new slightly depressed LVEF of 45% Will try to wean O2 supplemental to off if poss She may need a new order for home O2, would do walk test with RT for O2 order on day of Dch (probably tomorrow). (2) Chronic heart failure with preserved ejection fraction Assessment/Plan: Her LVEF is slightly reduced at 45% and she has diastolic dysfunction. She also has moder-severe pulmonary hypertension with PA pressure 67 mmHg. Heart rate control is important in this case, therefore beta-estrella plus Cardizem are being used. She will get another dose of Lasix today. O2 supplemental as needed still, will try to wean to off. (3) Choking due to food in larynx Assessment/Plan: Several days ago she had witnessed choking on her dinner (boiled carrots). There was no aspiration pneumonia on CXR. Yesterday she underwent swallowing eval by ST. The impression by the Speech Therapist was that she is impulsive in her eating because of her schizophrenia and does not chew because she has only 2 teeth in her mouth. Her diet was changed to pured and thin liquids. She needs to be fed or be supervised whemn eating to take breaks between spoonfuls. (4) Atrial flutter with rapid ventricular response Assessment/Plan: She was still intermittently tachycardic the past 3 days. Her medications were adjusted and spread out: Metoprolol tartrate twice daily has been changed to metoprolol succinate twice daily starting today. Cardizem CD 180 in the morning only has been changed to Cardizem CD 120 twice daily starting today. Continue with telemetry, especially during PT activity, to assess if adequate HR control. Continue her Eliquis twice daily dose (5) Dementia Assessment/Plan: She only answers with 1 or 2 word sentences and denies any complaints to me. She is more verbal with her caregivers today. OT evaluated her cognitive status and found she has Dementia, as she scored 9/30 points. Her most difficult was calculations as well as complex decision making ( she needs 24-hour supervision for ADLs, cooking, transportation, medication management and financial secretary). There is a pending case in front of a real estate account executive on 04/18/2020, to assign her a legal guardian. I completed paperwork for the court regarding her medical/psychological status and gave it to It Infrastructure Specialist Shari Melendez. She participates with PT and there is no behavioral problem. She is rehabable. Will be discharging to a SNF (hopefully tomorrow). Awaiting (a new) COVID result. (6) Schizophrenia Qualifiers: Schizophrenia type: unspecified Qualified Code(s): F20.9 - Schizophrenia, unspecified Assessment/Plan: Stable, on her home dose of Risperidone. The Speech Therapist did note that she is impulsive, when her swallowing evaluation was done. (7) Chronic abdominal wound infection Qualifiers: Encounter type: subsequent encounter Qualified Code(s): S31.109D - Unspecified open wound of abdominal wall, unspecified quadrant without penetration into peritoneal cavity, subsequent encounter; L08.9 - Local infection of the skin and subcutaneous tissue, unspecified; L08.9 - Local infection of the skin and subcutaneous tissue, unspecified Assessment/Plan: She has a larger volume of output thru thuis today, per her MULTIPLE COIL WINDER. 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 She did not want it repaired in the past. Her wishes were respected and no repair was ever done, it was not causing serious off enough illness to require admission. Because she will now be having a legal guardian make decisions for her after a Apr 18 real estate account executive ruling, this fistula will probably need a repair in the upcoming months. Will obtain an craft manager consult for a bag. (8) Ventral hernia Qualifiers: Obstruction and gangrene presence: without obstruction or gangrene Qualified Code(s): K43.9 - Ventral hernia without obstruction or gangrene Assessment/Plan: This was reduced in the ER at admission and is stable currently. No binder was ordered by Gen Surgery. (9) Chilblain Assessment/Plan: This was the impression of the previous Provider regarding her toes. 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 (10) Obesity (BMI 30-39.9) Assessment/Plan: As per Hx (11) Abdominal pain Assessment/Plan: Resolved and she is eating 100% of diet for 3 days. - Current Meds Current Meds: Current Medications Generic Name Dose Route Start Last Admin Trade Name Freq PRN Reason Stop Dose Admin Acetaminophen 650 mg 03/27/20 19:39 04/01/20 02:39 Acetaminophen 325 Mg Tablet PO 650 mg Q4HR PRN Administration Pain 1 to 4 Al Hydroxide/Mg Hydroxide 30 ml 03/28/20 21:42 03/28/20 22:13 Mag Hydrox/Al Hydrox/Simeth 30 Ml Udc PO 30 ml Q4HR PRN Administration INDIGESTION Albuterol 2.5 mg 03/27/20 19:44 04/01/20 08:06 Albuterol Neb 2.5 Mg/3 Ml INH 2.5 mg RTQ4H PRN Administration Wheezing Apixaban 5 mg 03/27/20 21:00 04/01/20 08:53 Apixaban 5 Mg Tablet PO 5 mg BID SERVANDO Administration Ascorbic Acid 500 mg 03/29/20 09:00 04/01/20 08:54 Ascorbic Acid Chew 500 Mg Tablet PO 500 mg DAILY SERVANDO Administration Diltiazem HCl 120 mg 03/30/20 21:00 04/01/20 08:54 Diltiazem Cd 120 Mg Capsule PO 120 mg BID SERVANDO Administration Docusate Sodium 100 mg 03/29/20 11:00 04/01/20 08:54 Docusate Sodium 100 Mg Capsule PO 100 mg BID SERVANDO Administration Ferrous Sulfate 325 mg 03/30/20 12:00 04/01/20 12:27 Ferrous Sulfate 325 Mg Tablet PO 325 mg TIDWM SERVANDO Administration Hydrocortisone 1 applic 04/01/20 12:00 04/01/20 12:26 Hydrocortisone 1% Cream 28 Gm Tube TOP 1 applic BID SERVANDO Administration Lactulose 10 gm 03/29/20 12:00 04/01/20 08:56 Lactulose 10 Gm /15 Ml Udc PO 10 gm BID SERVANDO Administration Metoprolol Succinate 25 mg 03/30/20 21:00 04/01/20 08:53 Metoprolol Succinate 25 Mg Tablet PO 25 mg BID SERVANDO Administration Multi-Ingredient Ointment 1 applic 03/30/20 09:00 04/01/20 12:26 Zinc Oxide 20% Oint 30 Gm Tube TOP 1 applic BID SERVANDO Administration Multivitamins/Minerals 1 tab 03/28/20 15:00 04/01/20 08:54 Multivitamin W/Minerals Tablet PO 1 tab DAILYWM SERVANDO Administration Risperidone 0.5 mg 03/29/20 11:00 04/01/20 08:54 Risperidone 1 Mg Tablet PO 0.5 mg DAILY SERVANDO Administration Sodium Chloride 10 ml 03/28/20 01:00 04/01/20 08:56 Sodium Chloride Flush 0.9% 10 Ml Syringe IVP 10 ml 0100,0900,1700 SERVANDO Administration Zinc Sulfate 220 mg 03/29/20 09:00 04/01/20 08:54 Zinc Sulfate 220 Mg Capsule PO 04/03/20 09:00 220 mg DAILY SERVANDO Administration - Lab Result Fish Bone Diagrams: 04/01/20 05:00 04/01/20 05:00 - Additional Planning My Orders: My Active Orders 04/01/20 12:00 Hydrocortisone 1% Cream [Hydrocortisone] 1 applic TOP BID 04/01/20 12:43 Ostomy Care Consult [MAC] Routine Subjective - Subjective Patient Reports: Resting Comfortably, No Complaints Nursing Reports: Other (Large volume of (?stool) drainage from the chronic abdominal fistula.) Objective Vital Signs: Vital Signs - 24 hr 03/31/20 03/31/20 03/31/20 15:43 21:00 23:43 Temperature 37.0 C 36.8 C 36.6 C Heart Rate Heart Rate [ 76 88 95 Brachial] Respiratory 25 H 25 H 22 Rate Blood Pressure 134/87 H 122/70 154/83 H [Right Brachial artery] O2 Saturation 94 93 93 04/01/20 04/01/20 04/01/20 05:00 06:23 08:06 Temperature 36.6 C Heart Rate 76 Heart Rate [ 65 Brachial] Respiratory 18 24 Rate Blood Pressure 131/67 H [Right Brachial artery] O2 Saturation 96 92 04/01/20 04/01/20 04/01/20 08:19 09:05 11:39 Temperature 36.6 C 36.9 C Heart Rate Heart Rate [ 84 88 Brachial] Respiratory 16 16 Rate Blood Pressure 139/65 H 128/75 [Right Brachial artery] O2 Saturation 93 95 100 Oxygen O2 Source Nasal cannula I&O (Last 24 Hrs): Intake and Output Totals x24h 03/30/20 03/31/20 04/01/20 23:59 23:59 23:59 Intake Total 1350 1770 480 Output Total 1325 2050 950 Balance 25 -280 -470 General: Alert HEENT: Mucous membr. moist/pink Neck: Supple, No JVD Neuro: Alert, Disoriented, Non Focal, Other (Minimally communicative.) Respiratory: No respiratory distress, Other (Wearing O2 per n.c.) Abdomen: Soft Extremities: No edema, Other (Red toes, mild venous changes of shins.) - Results Results: Laboratory Results WBC 7.3 x10^3/uL (4.8-10.8) 04/01/20 05:00 RBC 4.52 10^6/uL (4.20-5.40) 04/01/20 05:00 Hgb 12.2 g/dL (12.0-16.0) 04/01/20 05:00 Hct 41.6 % (37.0-47.0) 04/01/20 05:00 MCV 92.0 fL (81.0-99.0) 04/01/20 05:00 MCH 27.0 pg (27.0-31.0) 04/01/20 05:00 MCHC 29.3 g/dL (32.0-36.0) L 04/01/20 05:00 RDW 15.2 % (12.0-15.0) H 04/01/20 05:00 Plt Count 231 10^3/uL (130-450) 04/01/20 05:00 MPV 10.0 fL (7.9-10.8) 04/01/20 05:00 Neut # (Auto) 5.2 10^3/uL (1.5-6.6) 04/01/20 05:00 Lymph # (Auto) 1.1 10^3/uL (1.5-3.5) L 04/01/20 05:00 Donley # (Auto) 0.7 10^3/uL (0.0-1.0) 04/01/20 05:00 Eos # (Auto) 0.3 10^3/uL (0.0-0.7) 04/01/20 05:00 Baso # (Auto) 0.0 10^3/uL (0.0-0.1) 04/01/20 05:00 Absolute Nucleated RBC 0.00 x10^3/uL 04/01/20 05:00 Nucleated RBC % 0.0 /100WBC 04/01/20 05:00 Bld Gas Analysis Time 0534 03/28/20 05:25 Sample Site LEFT RADIAL 03/28/20 05:25 ABG pH 7.35 (7.35-7.45) 03/28/20 05:25 ABG pCO2 75 mmHg (34-45) H* 03/28/20 05:25 ABG pO2 69 mmHg (80-100) L 03/28/20 05:25 ABG HCO3 40.5 mmol/L (22.0-26.0) H 03/28/20 05:25 ABG Total CO2 42.8 MMOL/L (21.0-29.0) H* 03/28/20 05:25 ABG O2 Saturation 94 % (94-98) 03/28/20 05:25 ABG Base Excess 11.7 mmol/L (-2.0-3.0) H 03/28/20 05:25 Joel Test POSITIVE 03/28/20 05:25 Respiration Rate 18 b/min 03/28/20 05:25 O2 Delivery Device BiPAP 03/28/20 05:25 FiO2 30.00 03/28/20 05:25 EPAP 5 cmH2O 03/28/20 05:25 IPAP 12 cmH2O 03/28/20 05:25 Sodium 141 mmol/L (135-145) 04/01/20 05:00 Potassium 4.1 mmol/L (3.5-5.0) 04/01/20 05:00 Chloride 93 mmol/L (101-111) L 04/01/20 05:00 Carbon Dioxide 39 mmol/L (21-32) H* 04/01/20 05:00 Anion Gap 9.0 (6-13) 04/01/20 05:00 BUN 11 mg/dL (6-20) 04/01/20 05:00 Creatinine 0.5 mg/dL (0.4-1.0) 04/01/20 05:00 Estimated GFR (MDRD) 120 (>89) 04/01/20 05:00 Glucose 106 mg/dL (70-100) H 04/01/20 05:00 Lactic Acid 1.0 mmol/L (0.5-2.2) 03/27/20 14:15 Calcium 8.9 mg/dL (8.5-10.3) 04/01/20 05:00 Magnesium 1.9 mg/dL (1.7-2.8) 04/01/20 05:00 Total Bilirubin 0.7 mg/dL (0.2-1.0) 03/27/20 14:15 AST 23 IU/L (10-42) 03/27/20 14:15 ALT 18 IU/L (10-60) 03/27/20 14:15 Alkaline Phosphatase 103 IU/L (42-121) 03/27/20 14:15 Ammonia 37.1 umol/L (7-35) H 03/27/20 20:20 B-Natriuretic Peptide 496 pg/mL (5-100) H 03/28/20 04:37 Total Protein 7.2 g/dL (6.7-8.2) 03/27/20 14:15 Albumin 3.1 g/dL (3.2-5.5) L 03/27/20 14:15 Globulin 4.1 g/dL (2.1-4.2) 03/27/20 14:15 Albumin/Globulin Ratio 0.8 (1.0-2.2) L 03/27/20 14:15 Lipase 16 U/L (22-51) L 03/27/20 14:15 TSH 2.06 uIU/mL (0.34-5.60) 03/27/20 14:15 Urine Color YELLOW 03/27/20 16:18 Urine Clarity CLEAR (CLEAR) 03/27/20 16:18 Urine pH 7.0 PH (5.0-7.5) 03/27/20 16:18 Ur Specific Kimper 1.015 (1.002-1.030) 03/27/20 16:18 Urine Protein TRACE mg/dL (NEGATIVE) 03/27/20 16:18 Urine Glucose (UA) NEGATIVE mg/dL (NEGATIVE) 03/27/20 16:18 Urine Ketones TRACE mg/dL (NEGATIVE) 03/27/20 16:18 Urine Occult Blood NEGATIVE (NEGATIVE) 03/27/20 16:18 Urine Nitrite NEGATIVE (NEGATIVE) 03/27/20 16:18 Urine Bilirubin NEGATIVE (NEGATIVE) 03/27/20 16:18 Urine Urobilinogen 0.2 (NORMAL) E.U./dL (NORMAL) 03/27/20 16:18 Ur Leukocyte Esterase NEGATIVE (NEGATIVE) 03/27/20 16:18 Ur Microscopic Review NOT INDICATED 12/13/20 16:18 Urine Culture Comments NOT INDICATED 03/27/20 16:18 Ur Random Chloride 34 mmol/L 03/28/20 12:00 Nasal Adenovirus (PCR) NOT DETECTED 03/27/20 14:53 Nasal B. parapertussis DNA (PCR) NOT DETECTED 03/27/20 14:53 Nasal Coronavir 229E PCR NOT DETECTED 03/27/20 14:53 Nasal Coronavir HKU1 PCR NOT DETECTED 03/27/20 14:53 Nasal Coronavir NL63 PCR NOT DETECTED 03/27/20 14:53 Nasal Coronavir OC43 PCR NOT DETECTED 03/27/20 14:53 Nasal Enterovir/Rhinovir PCR NOT DETECTED 03/27/20 14:53 Nasal Influenza B PCR NOT DETECTED 03/27/20 14:53 Nasal Influenza A PCR NOT DETECTED 03/27/20 14:53 Nasal Parainfluen 1 PCR NOT DETECTED 03/27/20 14:53 Nasal Parainfluen 2 PCR NOT DETECTED 03/27/20 14:53 Nasal Parainfluen 3 PCR NOT DETECTED 03/27/20 14:53 Nasal Parainfluen 4 PCR NOT DETECTED 03/27/20 14:53 Nasal RSV (PCR) NOT DETECTED 03/27/20 14:53 Nasal Screen MRSA (PCR) NEGATIVE (NEGATIVE) 03/27/20 22:00 Nasal B.pertussis DNA PCR NOT DETECTED 03/27/20 14:53 Nasal C.pneumoniae (PCR) NOT DETECTED 03/27/20 14:53 Severo Human Metapneumo PCR NOT DETECTED 03/27/20 14:53 Nasal M.pneumoniae (PCR) NOT DETECTED 03/27/20 14:53 Nasal SARS-CoV-2 (PCR) NOT DETECTED 03/27/20 14:53 - Procedures Procedures: Procedures EXCISION OF ANUS, ENDO, DIAGN (10/28/17) EXCISION OF ESOPHAGUS, ENDO, DIAGN (10/28/17)
--- NOTE | 2020-04-01 17:23 | Discharge Plan ---
"Discharge Plan for SNF / FEDE - Discharge Plan And Transition Orders Problem Reviewed?: Yes Disposition: 03 SNF DC/Xfer Condition: Fair Allergies and Adverse Reactions: Allergies Allergy/AdvReac Type Severity Reaction Status Date / Time penicillin G Allergy Intermediate Anaphylaxis Verified 03/27/20 14:19 strawberry [Hammond] Allergy Intermediate Rash Verified 03/27/20 14:19 orange flavor Allergy Rash Verified 03/27/20 14:19 Health Concerns: Admitted with altered mental status, and abd pain and a ventral abdominal hernia was reduced in ER but she needed BiPAP for hypercarbia and hypoxia in the ICU. 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 She had schizophrenia and newly Dx with Dementia now. Plan of Treatment: PT and OT in SNF to improve her status. Care Goals: Improvement in symptoms and stabilization are the goals. Assessment: Instructions provided to SNF. On April 18, 2020, she has a court case to get legal guardianship assigned. - SNF / [facility] Transition Orders Admit to (Facility): [facility] Discharge Diagnosis: (1) Chronic heart failure with preserved ejection fraction Stabilized. She was tested for needing O2 on day of discharge and she should be on 2L )2 per n.c. continuously. (2) Choking due to food in larynx The impression by the Speech Therapist was that she is impulsive in her eating because of her Schizophrenia, and she does not chew because she has only 2 teeth in her mouth. Her diet was changed to pured and thin liquids. She needs to be fed or be supervised when eating, in order to take breaks between spoonfuls. (3) Chronic Atrial fib-flutter Rate now controlled, and she is on Eliquis (4) Dementia Without behavioral disturbance (5) Schizophrenia Stable on Respiridone. (6) Chronic abdominal wall fistula Chronic. Ostomy nurse did not feel that a bag should be placed to collect the fluid, therefore gauze or tissues are placed at the surface to absorb the drainage and she needs cleaning of her abdominal skin surface when there is a lot of drainage from this fistula. (7) UTI Patient has dysuria and abnormal UA, on the day of discharge. Urine was sent for culture. She received a dose of Fosfomycin (complete treatment). (8) Ventral hernia Reduced at the time of admission in ER by General Surgery. (9) Abdominal pain Resolved (10) Obesity (BMI 30-39.9) Medicare Certification Statement: I certify that Post Hospital snf care is medically necessary on a continuing basis for any of the conditions for which she/he is receiving care during hospitalization. Notify PCP of admission and forward orders to primary provider for signature. Weight on admission and: Monthly Other Notification Orders: Call PCP immediately if patient develops dyspnea, chest pain/tightness or edema. House Bowel Program: Yes Additional Bowel Program Orders: If no BM after 2 days, nurse may give M.O.M. 30ml PO PRN and/or ducolax Supp 1 WI and/or FAYE 250mg P.O., and/or senna 1-2 tabs PO. On day 3 nurse may give repeat above order until residents constipation is resolved. Annual Influenza Vaccine (between Dec 14 and July 13): Yes Two-step PPD per [facility] [phone] or approved exception documents: Yes Oxygen Orders: 2L O2 per nasal cannula 05/11 Lab Tests or X-ray Orders: Check urine culture results on 04/04/2020 Medication Orders: PLEASE REFER TO THE DISCHARGE MEDICATION LIST. Insulin Orders?: No - Medications New Prescriptions: Min Oil/Dimeth/Coconut Oil Crm [Cavilon] 1 applic TOP PRN PRN #1 tube PRN Reason: Skin Care Docusate Sodium 100Mg Capsule [Colace 100Mg Capsule] 100 mg PO DAILY #30 cap Diltiazem HCl [Diltiazem 12Hr ER] 120 mg PO BID #60 cap.er.12h Hydrocortisone 1% Cream [Hydrocortisone] 1 applic TOP BID PRN #1 tube PRN Reason: Itching Furosemide [Lasix] 20 mg PO MOWEFRSA #16 tablet Multivitamin W/Minerals [Theragran M] 1 tab PO DAILYWM #30 tablet Metoprolol Succinate [Toprol Xl] 25 mg PO BID #60 tablet Zinc Oxide 20% Oint [Zinc Oxide] 1 applic TOP BID #1 tube Zinc Sulfate 220 mg PO DAILY #30 capsule - Diet Type: Geriatric Texture: Puree (Patient needs to be fed with pauses between spoonfuls, or if she feeds herself, she needs to be supervised to take breaks between spoonfuls, because she is impulsive and may aspirate.) Liquids: Thin May have monthly special meal: Yes - Therapies | Activity Therapy: Evaluation | Treat if indicated: PT, OT Rehabilitation Potential: Maximize functional status Activity: Activity as Tolerated Weight Bearing: Full Weight Assistance Devices: Walker Additional Instructions: On 04/18/2020, the patient has a court date to be assigned a legal guardian. Follow Up: See PCP after discharge from SNF."
[2020-04-02] MEDS: ACETAMINOPHEN 325 MG TABLET PO PRN (02:11)
[2020-04-02] MEDS ORDERED: BENZOCAINE/MENTHOL LOZENGE MM PRN (02:13)
[2020-04-02] MEDS ORDERED: MIN OIL/DIMETHICON/COCONUT OIL 92 GM TUBE TOP PRN (02:13)
[2020-04-02] MEDS: DOCUSATE SODIUM 100 MG CAPSULE PO SCH (07:16)
[2020-04-02] MEDS ORDERED: FUROSEMIDE 20 MG TABLET PO SCH (09:00)
[2020-04-02] MEDS: ZINC SULFATE 220 MG CAPSULE PO SCH (09:05)
[2020-04-02] MEDS: ASCORBIC ACID CHEW 500 MG TABLET PO SCH (09:05)
[2020-04-02] MEDS: risperiDONE 1 MG TABLET PO SCH (09:05)
[2020-04-02] MEDS: FERROUS SULFATE 325 MG TABLET PO SCH ×2 (09:05→11:25)
[2020-04-02] MEDS: MULTIVITAMIN W/MINERALS TABLET PO SCH (09:05)
[2020-04-02] MEDS: METOPROLOL SUCCINATE 25 MG TABLET PO SCH (09:06)
[2020-04-02] MEDS: diltiaZEM CD 120 MG CAPSULE PO SCH (09:06)
[2020-04-02] MEDS: APIXABAN 5 MG TABLET PO SCH (09:06)
[2020-04-02] MEDS: HYDROCORTISONE 1% CREAM 28 GM TUBE TOP SCH (09:09)
[2020-04-02] MEDS: ZINC OXIDE 20% OINT 30 GM TUBE TOP SCH (09:10)
[2020-04-02] MEDS: SODIUM CHLORIDE FLUSH 0.9% 10 ML SYRINGE IVP SCH (09:12)
[2020-04-02] MEDS: LACTULOSE 10 GM /15 ML UDC PO SCH (09:21)
[2020-04-02 09:25] VITALS: BP 133/55
[2020-04-02 10:48] LABS: BILIRUBIN,URINE NEGATIVE (NEGATIVE); CLARITY,URINE CLOUDY (CLEAR); GLUCOSE, URINE (UA) NEGATIVE (NEGATIVE); KETONES,URINE (UA) NEGATIVE (NEGATIVE); LEUKOCYTE ESTERASE, URINE LARGE (NEGATIVE); NITRITE,URINE NEGATIVE (NEGATIVE); OCCULT BLOOD,URINE SMALL (NEGATIVE); PH,URINE 7.5 PH (5.0-7.5); PROTEIN,URINE NEGATIVE (NEGATIVE); UROBILINOGEN,URINE 0.2 (NORMAL) E.U./dL (NORMAL)
[2020-04-02 11:11] LABS: BACTERIA,URINE Few /HPF (None Seen); RBC,URINE 0-5 /HPF (0-5); SQUAMOUS EPITHELIAL CELL,UR NONE SEEN (<= Few)
[2020-04-02] MEDS ORDERED: FOSFOMYCIN TROMETHAMINE 3 GM PACKET PO ONE (11:15)
--- NOTE | 2020-04-02 11:16 | DISCHARGE SUMMARY ---
Discharge Summary Admit Date: 03/27/20 Discharge Date: 04/02/20 Discharging Provider: Dr Kandy Peterson Primary Care Provider: SAROJ Mulligan Code Status: Attempt Resuscitation Condition at Discharge: Fair Discharge Disposition: 03 SNF DC/Xfer - HPI History of Present Illness: From the admission H&P of Dr Julius Bailey: This is a 79-year-old female with a past medical history significant for chronic heart failure with preserved ejection fraction, schizophrenia, chronic abdominal wound infection, ventral hernia, atrial fibrillation on Eliquis who presents today complaining of back pain along with nausea and vomiting. History is obtained emergency room provider and EMR as the patient is somnolent and unable to provide a history. The patient reportedly presented due to fatigue and nausea and vomiting as mentioned above. She was found to have a small bowel obstruction on imaging likely due to the ventral hernia. This was reduced in the emergency department and she is able to tolerate a diet after that. She does have a known chronic abdominal wound infection with a fistula. She was evaluated by general surgery in the emergency department who felt that there are no acute surgical needs at this time and that she should follow up with the [facility] for further care. The patient then went into atrial fibrillation with rapid ventricular response with heart rate in the 120s. She is given diltiazem IV with improvement. She was noted to be persistently hypoxic in the low to mid 80s requiring 2 L of oxygen via nasal cannula to maintain an oxygen saturation greater than 92%. Given her ongoing hypoxia, chest x-ray was obtained which was relatively unremarkable except for some mild atelectasis. Given her ongoing hypoxia, medicine was consulted for admission. Once again, I am unable to obtain any history from the patient as her speech is incoherent and she just mumbles words. She is obviously quite altered and spea harvinder to the emergency department provider and staff, she was more responsive initially upon their evaluation. Due to her altered mental status, I could not confirm her CODE STATUS as she does not have capacity to make a decision at this time. - HOSPITAL COURSE Hospital Course: (1) Chronic heart failure with preserved ejection fraction An Echo was done that showed LVEF 45-50%. She needed fluids for several days (while npo), and later became volume overloaded. She got Lasix po intermittently and was discharged with such an order. She was tested for needing O2 on the day of discharge. At rest breathing room air, her oxygen saturation was 86%. On oxygen at 1L her sat was 91% and at 1.5L her sat was 94%. Then with ambulation, her O2 sat on 1.5L was 88%, but with 2L and ambulation, her sat was 95%. I am ordering Home O2 set at 2L continuously per nasal cannula. (2) Abdominal pain She had bowel rest then advanced diet slowly and abdominal pain resolved. It was likely a viral gastroenteritis. (3) Choking due to food in larynx The RN witnessed her aspirate and choke when eating bolied carrots. The impression by the Speech Therapist was that she is impulsive with her eating b ecause of her Schizophrenia, and she does not chew because she has only 2 teeth in her mouth. Her diet was changed to pured foods and thin liquids, which stabilized her. She needs to be fed or be supervised when eating, in order to take breaks between spoonfuls. (4) Chronic Atrial fib-flutter with RVR Her oral B-estrella and Cardizem doses were sloly increased and heart rate became controlled, and she was kept on her home dose of Eliquis. (5) Dementia She underwent cognitive eval by OT, when her clinical status stabilized, and she scored 7/30, indicating severe dementia. It is not safe to be living alone, as she was pre-admission. She was discharged to SNF for PT rehab. She had no behavioral disturbances. She has a court hearing on 04/18/20, to assign a legal guardian. (6) Schizophrenia This was stable on her home dose of Respiridone. (7) Chronic abdominal wall fistula Chronic for 4-5 years. She had refused repair in the past. Ostomy nurse did not feel that a bag should be placed to collect the fluid, therefore gauze or tissues are placed at the surface to absorb the drainage and she needs cleaning of her abdominal skin surface when there is a lot of drainage from this fistula. Hopefully, when a Guardian is assigned, the Guardain can give consent for an elective surgical repair. (8) Ventral hernia Reduced at the time of admission in ER by General Surgery. (9) UTI Patient has complaint of dysuria and had an abnormal UA, on the day of discharge. Urine was sent off for culture. She received a dose of Fosfomycin ( complete treatment) on the morning of discharge. (10) Obesity (BMI 30-39.9) As per Hx. - ALLERGIES Allergies/Adverse Reactions: Allergies Allergy/AdvReac Type Severity Reaction Status Date / Time penicillin G Allergy Intermediate Anaphylaxis Verified 03/27/20 14:19 strawberry [[place]] Allergy Intermediate Rash Verified 03/27/20 14:19 orange flavor Allergy Rash Verified 03/27/20 14:19 - MEDICATIONS Home Medications: Ambulatory Orders Medication Instructions Recorded Confirmed Ferrous Sulfate [Iron] 325 mg PO TID 09/25/12 03/28/20 Albuterol Sulf [Ventolin Hfa 1 - 2 puffs INH Q4HR PRN #1 inhaler 08/12/18 03/28/20 Inhaler] Apixaban [Eliquis] 5 mg PO BID 03/28/20 03/28/20 Cholecalciferol [Vitamin D3] 50 mcg PO DAILY 03/28/20 03/28/20 Risperidone [Risperdal] 0.5 mg PO DAILY 03/28/20 03/28/20 Diltiazem HCl [Diltiazem 12Hr ER] 120 mg PO BID #60 cap.er.12h 04/02/20 Docusate Sodium 100Mg Capsule 100 mg PO DAILY #30 cap 04/02/20 [Colace 100Mg Capsule] Furosemide [Lasix] 20 mg PO MOWEFRSA #16 tablet 04/02/20 Hydrocortisone 1% Cream 1 applic TOP BID PRN #1 tube 04/02/20 [Hydrocortisone] Metoprolol Succinate [Toprol Xl] 25 mg PO BID #60 tablet 04/02/20 Min Oil/Dimeth/Coconut Oil Crm 1 applic TOP PRN PRN #1 tube 04/02/20 [Cavilon] Multivitamin W/Minerals [Theragran 1 tab PO DAILYWM #30 tablet 04/02/20 M] Zinc Oxide 20% Oint [Zinc Oxide] 1 applic TOP BID #1 tube 04/02/20 Zinc Sulfate 220 mg PO DAILY #30 capsule 04/02/20 - PHYSICAL EXAM AT DISCHARGE General Appearance: positive: No acute distress, Alert Eyes Bilateral: positive: Normal inspection, EOMI ENT: positive: ENT inspection nml, No signs of dehydration, Other (2 teeth, otherwise edentulous) Neck: positive: Nml inspection, No JVD Respiratory: positive: No respiratory distress, Breath sounds nml Cardiovascular: positive: No murmur, Irregularly irregular Abdomen: positive: Non-tender, Nml bowel sounds, Other (Draining fistula of L mid-abd, has bandage) Skin: positive: No rash, Warm, Dry Extremities: positive: Other (1+ edema) Neurologic/Psychiatric: positive: Motor nml, Disoriented to person, Disoriented to place, Disoriented to time, Other (Flat affect, minimally communicative) - LABS Result Diagrams: 04/01/20 05:00 04/01/20 05:00 - DIAGNOSTIC IMAGING Diagnostic Imaging Results: Final report reviewed - FOLLOW UP Follow Up: See PCP after discharge from SNF. - TIME SPENT Time Spent in Discharge (Minutes): 60
[2020-04-02 12:19] LABS: C. PNEUMONIAE- RESP PCR PANEL NOT DETECTED
== END 2020-04-02 12:45 | DRG 292 ==
LOC: EDUNIT# → ED 13:47 → MS2 19:39 → OBSVTOIN 21:10 → ICU 21:44 → MS2 03-30 20:28
PROVIDERS: ADMIT Internal Medicine; ATTEND Internal Medicine
DX: R41.82 Altered mental status, unspecified (principal); I11.0 Hypertensive heart disease with heart failure; I48.91 Unspecified atrial fibrillation; K43.6 Other and unspecified ventral hernia with obstruction, without gangrene; K63.2 Fistula of intestine; I48.20 Chronic atrial fibrillation, unspecified; N39.0 Urinary tract infection, site not specified; I48.92 Unspecified atrial flutter; A08.4 Viral intestinal infection, unspecified; I50.32 Chronic diastolic (congestive) heart failure; R09.02 Hypoxemia; R06.89 Other abnormalities of breathing; R40.0 Somnolence; F03.90 Unspecified dementia, unspecified severity, without behavioral disturbance, psychotic disturbance, mood disturbance, and anxiety; I27.20 Pulmonary hypertension, unspecified; E66.9 Obesity, unspecified; Z68.37 Body mass index [BMI] 37.0-37.9, adult; K43.9 Ventral hernia without obstruction or gangrene; F20.9 Schizophrenia, unspecified; T17.928A Food in respiratory tract, part unspecified causing other injury, initial encounter; X58.XXXA Exposure to other specified factors, initial encounter; Y92.230 Patient room in hospital as the place of occurrence of the external cause; R63.3 Feeding difficulties; R45.87 Impulsiveness; K08.409 Partial loss of teeth, unspecified cause, unspecified class; T69.1XXA Chilblains, initial encounter; J45.909 Unspecified asthma, uncomplicated; K44.9 Diaphragmatic hernia without obstruction or gangrene; K59.09 Other constipation; R32 Unspecified urinary incontinence; Z74.2 Need for assistance at home and no other household member able to render care; Z99.81 Dependence on supplemental oxygen; Z20.828 Contact with and (suspected) exposure to other viral communicable diseases; Z79.01 Long term (current) use of anticoagulants; Z79.51 Long term (current) use of inhaled steroids; Z79.52 Long term (current) use of systemic steroids; Z79.899 Other long term (current) drug therapy
CPT/HCPCS: 36415; 36600; 51701; 70450; 71045; 74177; 80048; 80053; 81001; 81003; 82140; 82436; 82803; 83605; 83690; 83735; 83880; 84443; 85025; 87040; 87086; 87150; 87631; 92610; 93306; 94660; 94761; 96374; 96375; 97162; 97166; 97530; 97537; 99285; A9270; G0378; J3370; J8499; Q9967; U0004; 0202U; 94640

== ENCOUNTER 2020-04-07 08:00 | Outpatient (CLI) | payer MEDICARE, MEDICAID ==
[2020-04-07 21:57] LABS: BILIRUBIN,URINE NEGATIVE (NEGATIVE); GLUCOSE, URINE (UA) NEGATIVE (NEGATIVE); KETONES,URINE (UA) NEGATIVE (NEGATIVE); LEUKOCYTE ESTERASE, URINE NEGATIVE (NEGATIVE); NITRITE,URINE NEGATIVE (NEGATIVE); OCCULT BLOOD,URINE NEGATIVE (NEGATIVE); PROTEIN,URINE NEGATIVE (NEGATIVE); UROBILINOGEN,URINE 0.2 (NORMAL) E.U./dL (NORMAL)
[2020-04-07 22:00] LABS: CLARITY,URINE CLEAR (CLEAR)
== END 2020-04-07 23:59 | disposition home or self-care (01) ==
LOC: LAB.R 08:00
PROVIDERS: ATTEND Family Medicine
DX: N39.0 Urinary tract infection, site not specified (principal)
CPT/HCPCS: 81001; 81003; 87086

== ENCOUNTER 2020-04-12 11:15 | Outpatient (CLI) | payer MEDICAID, MEDICARE, OTHER ==
[2020-04-12 13:25] LABS: BASOPHILS % (AUTO) 0.3 %; EOSINOPHILS % (AUTO) 0.3 %; HCT - HEMATOCRIT 43.3 % (37.0-47.0); HGB - HEMOGLOBIN 12.7 g/dL (12.0-16.0); LYMPHOCYTES # (AUTO) 0.8 10^3/uL (1.5-3.5); LYMPHOCYTES % (AUTO) 12.2 %; MEAN CORPUSCULAR HEMOGLOBIN 27.2 pg (27.0-31.0); MEAN CORPUSCULAR HGB CONC 29.3 g/dL (32.0-36.0); MEAN CORPUSCULAR VOLUME 92.7 fL (81.0-99.0); MEAN PLATELET VOLUME 11.4 fL (7.9-10.8); MONOCYTES # (AUTO) 0.6 10^3/uL (0.0-1.0); MONOCYTES % (AUTO) 8.7 %; NEUTROPHILS # (AUTO) 5.2 10^3/uL (1.5-6.6); PLT - PLATELET COUNT 210 10^3/uL (130-450); RED BLOOD COUNT 4.67 10^6/uL (4.20-5.40); RED CELL DISTRIBUTION WIDTH 15.2 % (12.0-15.0); WHITE BLOOD COUNT 6.6 x10^3/uL (4.8-10.8)
[2020-04-12 13:33] LABS: ALBUMIN/GLOBULIN RATIO 0.8 (1.0-2.2); BILIRUBIN,TOTAL 0.4 mg/dL (0.2-1.0); CALCIUM 8.7 mg/dL (8.5-10.3); CREATININE 0.4 mg/dL (0.4-1.0)
== END 2020-04-12 23:59 | disposition home or self-care (01) ==
LOC: LAB.R 11:15
DX: I48.20 Chronic atrial fibrillation, unspecified (principal); I50.22 Chronic systolic (congestive) heart failure
CPT/HCPCS: 36415; 80053; 84146; 85025

== ENCOUNTER 2020-05-11 11:45 | Outpatient (CLI) | payer MEDICARE, MEDICAID ==
[2020-05-11 16:17] LABS: BASOPHILS % (AUTO) 0.5 %; LYMPHOCYTES # (AUTO) 0.9 10^3/uL (1.5-3.5)
[2020-05-11 16:24] LABS: CALCIUM 9.1 mg/dL (8.5-10.3); CREATININE 0.4 mg/dL (0.4-1.0)
[2020-05-11 16:28] LABS: EOSINOPHILS # (AUTO) 0.1 10^3/uL (0.0-0.7); EOSINOPHILS % (AUTO) 1.6 %; HGB - HEMOGLOBIN 12.2 g/dL (12.0-16.0); LYMPHOCYTES % (AUTO) 10.6 %; MEAN CORPUSCULAR HEMOGLOBIN 27.2 pg (27.0-31.0); MEAN CORPUSCULAR HGB CONC 29.5 g/dL (32.0-36.0); MEAN CORPUSCULAR VOLUME 92.4 fL (81.0-99.0); MEAN PLATELET VOLUME 11.1 fL (7.9-10.8); MONOCYTES # (AUTO) 1.1 10^3/uL (0.0-1.0); MONOCYTES % (AUTO) 13.2 %; NEUTROPHILS # (AUTO) 5.9 10^3/uL (1.5-6.6); NEUTROPHILS % (AUTO) 73.7 %; PLT - PLATELET COUNT 203 10^3/uL (130-450); RED BLOOD COUNT 4.48 10^6/uL (4.20-5.40); RED CELL DISTRIBUTION WIDTH 17.2 % (12.0-15.0)
== END 2020-05-11 23:59 | disposition home or self-care (01) ==
LOC: LAB.R 11:45
DX: I50.22 Chronic systolic (congestive) heart failure (principal); D64.9 Anemia, unspecified
CPT/HCPCS: 80048; 85025

== ENCOUNTER 2020-07-18 09:55 | Outpatient (CLI) | payer MEDICARE, MEDICAID, OTHER ==
[2020-07-18 10:52] LABS: BASOPHILS % (AUTO) 0.3 %; EOSINOPHILS # (AUTO) 0.1 10^3/uL (0.0-0.7); EOSINOPHILS % (AUTO) 1.3 %; HCT - HEMATOCRIT 35.4 % (37.0-47.0); HGB - HEMOGLOBIN 10.3 g/dL (12.0-16.0); LYMPHOCYTES # (AUTO) 0.5 10^3/uL (1.5-3.5); LYMPHOCYTES % (AUTO) 8.6 %; MEAN CORPUSCULAR HEMOGLOBIN 27.8 pg (27.0-31.0); MEAN CORPUSCULAR HGB CONC 29.1 g/dL (32.0-36.0); MEAN CORPUSCULAR VOLUME 95.7 fL (81.0-99.0); MEAN PLATELET VOLUME 10.3 fL (7.9-10.8); MONOCYTES # (AUTO) 0.6 10^3/uL (0.0-1.0); MONOCYTES % (AUTO) 9.4 %; NEUTROPHILS % (AUTO) 80.1 %; PLT - PLATELET COUNT 209 10^3/uL (130-450); RED CELL DISTRIBUTION WIDTH 15.4 % (12.0-15.0); WHITE BLOOD COUNT 6.3 x10^3/uL (4.8-10.8)
[2020-07-18 11:01] LABS: ALBUMIN 2.9 g/dL (3.2-5.5); ALBUMIN/GLOBULIN RATIO 0.7 (1.0-2.2); BILIRUBIN,TOTAL 0.5 mg/dL (0.2-1.0); CALCIUM 8.8 mg/dL (8.5-10.3); CREATININE 0.3 mg/dL (0.4-1.0); POTASSIUM 4.2 mmol/L (3.5-5.0); TOTAL PROTEIN 6.9 g/dL (6.7-8.2)
== END 2020-07-18 23:59 | disposition home or self-care (01) ==
LOC: LAB.R 09:55
DX: I48.20 Chronic atrial fibrillation, unspecified (principal); E66.09 Other obesity due to excess calories
CPT/HCPCS: 80053; 85025

== ENCOUNTER 2020-07-26 04:30 | Outpatient (CLI) | payer MEDICARE, MEDICAID, OTHER | END 2020-07-26 23:59 | disposition home or self-care (01) | LOC: LAB.R 04:30 | PROVIDERS: ATTEND Family Medicine | DX: K31.6 Fistula of stomach and duodenum (principal) | CPT/HCPCS: 87070; 87181; 87205 ==

== ENCOUNTER 2020-10-14 12:32 | Outpatient (CLI) | payer MEDICARE, MEDICAID ==
[2020-10-14 12:56] LABS: CALCIUM 8.6 mg/dL (8.5-10.3); CREATININE 0.5 mg/dL (0.4-1.0); POTASSIUM 3.8 mmol/L (3.5-5.0)
== END 2020-10-14 12:33 | disposition home or self-care (01) ==
LOC: LAB.R 12:32
DX: J44.9 Chronic obstructive pulmonary disease, unspecified (principal); I11.0 Hypertensive heart disease with heart failure; I50.22 Chronic systolic (congestive) heart failure
CPT/HCPCS: 80048

== ENCOUNTER 2020-10-15 08:00 | Outpatient (CLI) | payer MEDICARE, MEDICAID ==
[2020-10-15 19:16] LABS: CALCIUM 8.7 mg/dL (8.5-10.3); CREATININE 0.5 mg/dL (0.4-1.0); POTASSIUM 4.6 mmol/L (3.5-5.0)
== END 2020-10-15 23:59 | disposition home or self-care (01) ==
LOC: LAB.R 08:00
DX: I48.20 Chronic atrial fibrillation, unspecified (principal)
CPT/HCPCS: 80048

== ENCOUNTER 2021-03-17 12:00 | Outpatient (CLI) | payer MEDICARE, MEDICAID ==
[2021-03-17 20:49] LABS: CALCIUM 8.9 mg/dL (8.5-10.3); CREATININE 0.4 mg/dL (0.4-1.0); POTASSIUM 4.2 mmol/L (3.5-5.0)
== END 2021-03-17 23:59 | disposition home or self-care (01) ==
LOC: LAB 12:00
DX: I11.0 Hypertensive heart disease with heart failure (principal); I50.22 Chronic systolic (congestive) heart failure; M62.81 Muscle weakness (generalized); D64.9 Anemia, unspecified
CPT/HCPCS: 36415; 80048; 83880

== ENCOUNTER 2021-05-09 12:10 | Outpatient (CLI) | payer MEDICARE, MEDICAID ==
[2021-05-09 12:27] LABS: BASOPHILS % (AUTO) 0.4 %; EOSINOPHILS # (AUTO) 0.1 10^3/uL (0.0-0.7); HCT - HEMATOCRIT 37.2 % (37.0-47.0); HGB - HEMOGLOBIN 11.4 g/dL (12.0-16.0); LYMPHOCYTES # (AUTO) 1.1 10^3/uL (1.5-3.5); LYMPHOCYTES % (AUTO) 16.3 %; MEAN CORPUSCULAR HEMOGLOBIN 27.6 pg (27.0-31.0); MEAN CORPUSCULAR HGB CONC 30.6 g/dL (32.0-36.0); MEAN CORPUSCULAR VOLUME 90.1 fL (81.0-99.0); MEAN PLATELET VOLUME 10.2 fL (7.9-10.8); MONOCYTES % (AUTO) 14.9 %; NEUTROPHILS # (AUTO) 4.6 10^3/uL (1.5-6.6); PLT - PLATELET COUNT 267 10^3/uL (130-450); RED BLOOD COUNT 4.13 10^6/uL (4.20-5.40); WHITE BLOOD COUNT 6.9 x10^3/uL (4.8-10.8)
[2021-05-09 12:32] LABS: ALBUMIN 3.1 g/dL (3.2-5.5); ALBUMIN/GLOBULIN RATIO 0.9 (1.0-2.2); BILIRUBIN,TOTAL 0.6 mg/dL (0.2-1.0); CALCIUM 8.7 mg/dL (8.5-10.3); CREATININE 0.5 mg/dL (0.4-1.0); POTASSIUM 3.9 mmol/L (3.5-5.0); TOTAL PROTEIN 6.6 g/dL (6.7-8.2)
== END 2021-05-09 12:11 | disposition home or self-care (01) ==
LOC: LAB 12:10 → LAB.R 12:11
DX: I11.0 Hypertensive heart disease with heart failure (principal); I50.22 Chronic systolic (congestive) heart failure
CPT/HCPCS: 80053; 85025

== ENCOUNTER 2021-10-05 08:00 | Outpatient (CLI) | payer MEDICARE, MEDICAID ==
[2021-10-05 18:11] LABS: B. PARAPERTUSSIS- RESP PCR PAN NOT DETECTED; B. PERTUSSIS- RESP PCR PANEL NOT DETECTED; C. PNEUMONIAE- RESP PCR PANEL NOT DETECTED; CORONAVIRUS 229E-RESP PCR NOT DETECTED; CORONAVIRUS HKU1-RESP PCR NOT DETECTED; CORONAVIRUS NL63-RESP PCR NOT DETECTED; CORONAVIRUS OC43-RESP PCR NOT DETECTED; HUMAN METAPNEUMOVIRUS NOT DETECTED; INFLUENZA A- RESP PCR PANEL NOT DETECTED; INFLUENZA B - RESP PCR PANEL NOT DETECTED; M. PNEUMONIAE- RESP PCR PANEL NOT DETECTED; PARAINFLUENZA VIRUS 1 NOT DETECTED; PARAINFLUENZA VIRUS 2 NOT DETECTED; PARAINFLUENZA VIRUS 3 NOT DETECTED; PARAINFLUENZA VIRUS 4 NOT DETECTED; RHINOVIRUS/ENTEROVIRUS NOT DETECTED; RSV- RESP PCR PANEL NOT DETECTED; SARS-CoV-2 -RESP PCR PANEL NOT DETECTED
== END 2021-10-05 23:59 | disposition home or self-care (01) ==
LOC: LAB.R 08:00
PROVIDERS: ATTEND Hospitalist
DX: J44.9 Chronic obstructive pulmonary disease, unspecified (principal); J96.11 Chronic respiratory failure with hypoxia; Z99.81 Dependence on supplemental oxygen; Z20.822 Contact with and (suspected) exposure to COVID-19
CPT/HCPCS: 87633

== ENCOUNTER 2022-01-03 15:26 | Outpatient (CLI) | payer MEDICARE, MEDICAID ==
[2022-01-03 15:39] LABS: BILIRUBIN,URINE NEGATIVE (NEGATIVE); GLUCOSE, URINE (UA) NEGATIVE (NEGATIVE); KETONES,URINE (UA) NEGATIVE (NEGATIVE); LEUKOCYTE ESTERASE, URINE SMALL (NEGATIVE); NITRITE,URINE NEGATIVE (NEGATIVE); OCCULT BLOOD,URINE TRACE-INTA (NEGATIVE); PH,URINE 6.5 PH (5.0-7.5); PROTEIN,URINE NEGATIVE (NEGATIVE); UROBILINOGEN,URINE 0.2 (NORMAL) E.U./dL (NORMAL)
[2022-01-03 15:45] LABS: CLARITY,URINE HAZY (CLEAR)
[2022-01-03 15:57] LABS: BACTERIA,URINE Moderate /HPF (None Seen); RBC,URINE 0-5 /HPF (0-5); SQUAMOUS EPITHELIAL CELL,UR FEW Squamous (<= Few); WBC,URINE >25 /HPF (0-5)
== END 2022-01-03 15:27 | disposition home or self-care (01) ==
LOC: LAB 15:26
PROVIDERS: ATTEND Hospitalist
DX: N39.0 Urinary tract infection, site not specified (principal)
CPT/HCPCS: 81001; 81003; 87077; 87086; 87181

== ENCOUNTER 2022-01-16 18:31 | Emergency (ER) | payer MEDICARE, MEDICAID ==
[2022-01-16 19:20] LABS: BASOPHILS % (AUTO) 0.4 %; EOSINOPHILS # (AUTO) 0.1 10^3/uL (0.0-0.7); EOSINOPHILS % (AUTO) 1.2 %; HCT - HEMATOCRIT 36.8 % (37.0-47.0); HGB - HEMOGLOBIN 10.7 g/dL (12.0-16.0); LYMPHOCYTES % (AUTO) 14.3 %; MEAN CORPUSCULAR HEMOGLOBIN 27.8 pg (27.0-31.0); MEAN CORPUSCULAR HGB CONC 29.1 g/dL (32.0-36.0); MEAN CORPUSCULAR VOLUME 95.6 fL (81.0-99.0); MEAN PLATELET VOLUME 9.6 fL (7.9-10.8); MONOCYTES # (AUTO) 0.9 10^3/uL (0.0-1.0); NEUTROPHILS # (AUTO) 4.9 10^3/uL (1.5-6.6); NEUTROPHILS % (AUTO) 70.8 %; PLT - PLATELET COUNT 187 10^3/uL (130-450); RED BLOOD COUNT 3.85 10^6/uL (4.20-5.40); RED CELL DISTRIBUTION WIDTH 14.4 % (12.0-15.0); WHITE BLOOD COUNT 6.9 x10^3/uL (4.8-10.8)
--- NOTE | 2022-01-16 19:21 | ED Physician Documentation ---
PD HPI DYSPNEA - Stated complaint Stated Complaint: SOA - Chief complaint Chief Complaint: Resp - History obtained from History obtained from: Patient, EMS - History of Present Illness Pain level max: 0 Pain level now: 0 - Additional information Additional information: EMS brought the patient in today from her long-term. EMS states that she was complaining of shortness of breath. Patient denies this. Patient states that she is fully asymptomatic and feels better than she usually does. Denies any fever, cough, congestion, abdominal pain. The report from EMS was that that her doctor wanted her to have "labs" and an x-ray. Review of Systems Constitutional: denies: Fever, Chills GI: denies: Vomiting Skin: denies: Rash Neurologic: denies: Headache PD PAST MEDICAL HISTORY - Past Medical History Past Medical History: Yes Cardiovascular: Congestive heart failure, Hypertension, Atrial fibrillation Respiratory: Asthma Neuro: None Endocrine/Autoimmune: None GI: GERD, GI bleed, Hiatal hernia, Colon polyps, Chronic constipation, Hemorrhoids AERODYNAMICIST: None : Incontinence HEENT: None Psych: Schizophrenia Musculoskeletal: Other Derm: None - Past Surgical History Past Surgical History: Yes General: EGD Ortho: Other - Present Medications Home Medications: Ambulatory Orders Medication Instructions Recorded Confirmed risperiDONE [Risperdal] 0.5 mg PO DAILY PM 03/28/20 09/23/20 Acetaminophen [Tylenol Arthritis] 650 mg PO QID 09/23/20 09/23/20 Albuterol Sulf [Ventolin Hfa 2 puffs INH Q4HR PRN 09/23/20 09/23/20 Inhaler] Apixaban [Eliquis] 5 mg PO BID 09/23/20 09/23/20 Bisacodyl Supp [Dulcolax Supp] 10 mg [place] ONCE PRN 09/23/20 09/23/20 Cetirizine HCl [Zyrtec] 5 mg PO DAILY PM 09/23/20 09/23/20 Cholecalciferol (Vitamin D3) 50 mcg PO DAILY 09/23/20 09/23/20 [Vitamin D3] Diltiazem HCl [Diltiazem 12Hr ER] 120 mg PO BID 09/23/20 09/23/20 Ferrous Gluconate 240 mg PO DAILYWM 09/23/20 09/23/20 Furosemide [Lasix] 20 mg PO DAILY 09/23/20 09/23/20 Hydrocortisone 1% Cream 1 applic TOP BID PRN 09/23/20 09/23/20 [Hydrocortisone] Mag Hydrox/Aluminum Hyd/Simeth 30 ml PO BID 09/23/20 09/23/20 [Mag-Alum Hydroxide-Simeth Susp] Menthol/Camphor/White Petrolat 1 applic TOP Q8HR PRN 09/23/20 09/23/20 [Boroleum Ointment] Metoprolol Succinate [Toprol Xl] 25 mg PO BID 09/23/20 09/23/20 Mineral Oil [Mineral Oil Enema] 1 unit MN ONCE PRN MDD once 09/23/20 09/23/20 Multivitamin W/Minerals [Theragran 1 tab PO DAILY PM 09/23/20 09/23/20 M] Senna [Senokot] 2 tab PO HS PRN 09/23/20 09/23/20 Zinc Gluconate [Zinc] 50 mg PO DAILY 09/23/20 09/23/20 polyethylene glycoL 3350 17 gm PO ONCE PRN 09/23/20 09/23/20 [Polyethylene Glycol 3350] Furosemide [Lasix] 40 mg PO DAILY #5 tablet 01/16/22 - Allergies Allergies/Adverse Reactions: Allergies Allergy/AdvReac Type Severity Reaction Status Date / Time penicillin G Allergy Intermediate Anaphylaxis Verified 01/16/22 18:37 strawberry [[place]] Allergy Intermediate Rash Verified 01/16/22 18:37 orange flavor Allergy Rash Verified 01/16/22 18:37 - Social History Does the pt smoke?: No Smoking Status: Never smoker Does the pt drink ETOH?: No Does the pt have substance abuse?: No - Immunizations Immunizations are current?: No Immunizations: TDAP >10years/unknown - POLST Patient has POLST: No PD ED PE NORMAL - Vitals Vital signs reviewed: Yes - General General: Alert and oriented X 3, No acute distress - HEENT HEENT: Moist mucous membranes - Neck Neck: Supple, no meningeal sign - Cardiac Cardiac: RRR, Strong equal pulses - Respiratory Respiratory: No respiratory distress, Clear bilaterally - Abdomen Abdomen: Soft, Non tender, Non distended - Derm Derm: Warm and dry - Extremities Extremities: No edema - Neuro Neuro: Alert and oriented X 3 - Psych Psych: Normal mood, Normal affect Results - Vitals Vitals: Vital Signs - 24 hr 01/16/22 01/16/22 01/16/22 18:37 18:42 20:42 Temperature 36.7 C 36.7 C Heart Rate 76 76 82 Respiratory 18 18 24 Rate Blood Pressure 140/60 H 140/60 H 119/79 O2 Saturation 100 100 98 If not protocol 2 2 : Oxygen Flow, liters/minute Oxygen O2 Source Nasal cannula Oxygen Flow Rate 2 - Labs Labs: Laboratory Tests 01/16/22 01/16/22 01/16/22 19:12 19:12 19:12 WBC 6.9 RBC 3.85 L Hgb 10.7 L Hct 36.8 L MCV 95.6 MCH 27.8 MCHC 29.1 L RDW 14.4 Plt Count 187 MPV 9.6 Neut # (Auto) 4.9 Lymph # (Auto) 1.0 L [place] # (Auto) 0.9 Eos # (Auto) 0.1 Baso # (Auto) 0.0 Absolute Nucleated RBC 0.00 Nucleated RBC % 0.0 Sodium 139 Potassium 4.4 Chloride 90 L Carbon Dioxide 44 H* Anion Gap 5.0 L BUN 10 Creatinine 0.3 L Estimated GFR (MDRD) 215 Glucose 110 H Calcium 9.0 B-Natriuretic Peptide 276 H Nasal Adenovirus (PCR) Nasal B. parapertussis DNA (PCR) Nasal Coronavir 229E PCR Nasal Coronavir HKU1 PCR Nasal Coronavir NL63 PCR Nasal Coronavir OC43 PCR Nasal Enterovir/Rhinovir PCR Nasal Influenza B PCR Nasal Influenza A PCR Nasal Parainfluen 1 PCR Nasal Parainfluen 2 PCR Nasal Parainfluen 3 PCR Nasal Parainfluen 4 PCR Nasal RSV (PCR) Nasal B.pertussis DNA PCR Nasal C.pneumoniae (PCR) [place] Human Metapneumo PCR Nasal M.pneumoniae (PCR) Nasal SARS-CoV-2 (PCR) 01/16/22 19:18 WBC RBC Hgb Hct MCV MCH MCHC RDW Plt Count MPV Neut # (Auto) Lymph # (Auto) [place] # (Auto) Eos # (Auto) Baso # (Auto) Absolute Nucleated RBC Nucleated RBC % Sodium Potassium Chloride Carbon Dioxide Anion Gap BUN Creatinine Estimated GFR (MDRD) Glucose Calcium B-Natriuretic Peptide Nasal Adenovirus (PCR) NOT DETECTED Nasal B. parapertussis DNA (PCR) NOT DETECTED Nasal Coronavir 229E PCR NOT DETECTED Nasal Coronavir HKU1 PCR NOT DETECTED Nasal Coronavir NL63 PCR NOT DETECTED Nasal Coronavir OC43 PCR NOT DETECTED Nasal Enterovir/Rhinovir PCR NOT DETECTED Nasal Influenza B PCR NOT DETECTED Nasal Influenza A PCR NOT DETECTED Nasal Parainfluen 1 PCR NOT DETECTED Nasal Parainfluen 2 PCR NOT DETECTED Nasal Parainfluen 3 PCR NOT DETECTED Nasal Parainfluen 4 PCR NOT DETECTED Nasal RSV (PCR) NOT DETECTED Nasal B.pertussis DNA PCR NOT DETECTED Nasal C.pneumoniae (PCR) NOT DETECTED [place] Human Metapneumo PCR NOT DETECTED Nasal M.pneumoniae (PCR) NOT DETECTED Nasal SARS-CoV-2 (PCR) NOT DETECTED - Rads (name of study) Chest x-ray Radiology: Final report received, EMP read contemporaneously, See rad report (Moderate CHF/fluid overload/pulmonary edema) PD MEDICAL DECISION MAKING - ED course Complexity details: reviewed results, re-evaluated patient, considered differential, d/w patient ED course: 81-year-old female with what appears to be a mild CHF exacerbation. No increased oxygen requirement. She is only on Lasix 20 mg daily 4 days a week, we will increase this for the next few days to 40 mg daily to decrease her fluid overload. Patient is otherwise very well-appearing, nontoxic. Afebrile. Patient does have dementia and lives at a prison facility. She will be returned to her prison facility and follow-up with her doctor. This document was made in part using voice recognition software. While efforts are made to proofread this document, sound alike and grammatical errors may occur. Departure - Departure Disposition: 01 Home, Self Care Clinical Impression: Chronic heart failure with preserved ejection fraction Pulmonary edema Qualifiers: Chronicity: acute Qualified Code(s): J81.0 - Acute pulmonary edema Condition: Good Instructions: ED CHF General Follow-Up: your,doctor in 1 week [Other] Prescriptions: Furosemide [Lasix] 40 mg PO DAILY #5 tablet Comments: We will increase your Lasix to 40 mg by mouth daily for a total of 5 days, this should help to get the excess fluid off of your lungs. Please follow-up with your doctor for further care. Return if you worsen. Your prescriptions were sent to [facility] Discharge Date/Time: 01/16/22 21:33
[2022-01-16 19:28] LABS: CREATININE 0.3 mg/dL (0.4-1.0); POTASSIUM 4.4 mmol/L (3.5-5.0)
--- NOTE | 2022-01-16 20:04 | XRAY Report ---
PROCEDURE: Chest 1 View X-Ray INDICATIONS: chest pain TECHNIQUE: One view of the chest was acquired. COMPARISON: Chest radiograph 03/29/2020 FINDINGS: Surgical changes and devices: None. Lungs and pleura: At least small left pleural effusion. Probable layering right pleural effusion. Pu lmonary vasculature appears congested. Hazy opacities present at the mid and lower lungs. No pneumoth orax. Mediastinum: Cardiac silhouette is enlarged. Mediastinal and hilar contours are similar to before. Bones and chest wall: No suspicious bony lesions. Overlying soft tissues appear unremarkable. IMPRESSION: Findings compatible with at least moderate fluid overload/CHF. Underlying viral or atypical infection cannot be excluded. Reviewed by: Geraldo Morales MD on 01/16/2022 8:02 PM PDT Approved by: Geraldo Morales MD on 01/16/2022 8:02 PM PDT Station ID: [id number]
[2022-01-16 20:22] LABS: B. PARAPERTUSSIS- RESP PCR PAN NOT DETECTED; B. PERTUSSIS- RESP PCR PANEL NOT DETECTED; C. PNEUMONIAE- RESP PCR PANEL NOT DETECTED; CORONAVIRUS 229E-RESP PCR NOT DETECTED; CORONAVIRUS HKU1-RESP PCR NOT DETECTED; CORONAVIRUS NL63-RESP PCR NOT DETECTED; CORONAVIRUS OC43-RESP PCR NOT DETECTED; HUMAN METAPNEUMOVIRUS NOT DETECTED; INFLUENZA A- RESP PCR PANEL NOT DETECTED; INFLUENZA B - RESP PCR PANEL NOT DETECTED; M. PNEUMONIAE- RESP PCR PANEL NOT DETECTED; PARAINFLUENZA VIRUS 1 NOT DETECTED; PARAINFLUENZA VIRUS 2 NOT DETECTED; PARAINFLUENZA VIRUS 3 NOT DETECTED; PARAINFLUENZA VIRUS 4 NOT DETECTED; RHINOVIRUS/ENTEROVIRUS NOT DETECTED; RSV- RESP PCR PANEL NOT DETECTED; SARS-CoV-2 -RESP PCR PANEL NOT DETECTED
[2022-01-16] MEDS ORDERED: FUROSEMIDE 20 MG TABLET PO STA (20:41)
[2022-01-16 20:48] VITALS: BP 119/79
== END 2022-01-16 21:33 | disposition home or self-care (01) ==
LOC: EDUNIT# → ED 18:31
DX: I11.0 Hypertensive heart disease with heart failure (principal); I50.1 Left ventricular failure, unspecified; I48.91 Unspecified atrial fibrillation; Z79.01 Long term (current) use of anticoagulants
CPT/HCPCS: 36415; 71045; 80048; 83880; 85025; 87633; 99283; 99284; A9270

== ENCOUNTER 2022-12-29 08:00 | Outpatient (CLI) | payer MEDICARE, MEDICAID ==
[2022-12-29 07:54] LABS: BASOPHILS # (AUTO) 0.1 10^3/uL (0.0-0.1); BASOPHILS % (AUTO) 0.6 %; EOSINOPHILS # (AUTO) 0.1 10^3/uL (0.0-0.7); HCT - HEMATOCRIT 39.1 % (37.0-47.0); HGB - HEMOGLOBIN 11.7 g/dL (12.0-16.0); LYMPHOCYTES # (AUTO) 1.2 10^3/uL (1.5-3.5); LYMPHOCYTES % (AUTO) 14.6 %; MEAN CORPUSCULAR HEMOGLOBIN 27.6 pg (27.0-31.0); MEAN CORPUSCULAR HGB CONC 29.9 g/dL (32.0-36.0); MEAN CORPUSCULAR VOLUME 92.2 fL (81.0-99.0); MEAN PLATELET VOLUME 9.8 fL (7.9-10.8); MONOCYTES # (AUTO) 0.7 10^3/uL (0.0-1.0); MONOCYTES % (AUTO) 8.5 %; NEUTROPHILS # (AUTO) 5.9 10^3/uL (1.5-6.6); PLT - PLATELET COUNT 274 10^3/uL (130-450); RED BLOOD COUNT 4.24 10^6/uL (4.20-5.40); RED CELL DISTRIBUTION WIDTH 13.4 % (12.0-15.0); WHITE BLOOD COUNT 7.9 x10^3/uL (4.8-10.8)
[2022-12-29 08:05] LABS: ALBUMIN 3.3 g/dL (3.2-5.5); ALBUMIN/GLOBULIN RATIO 1.1 (1.0-2.2); BILIRUBIN,TOTAL 0.3 mg/dL (0.2-1.0); CALCIUM 9.2 mg/dL (8.5-10.3); CREATININE 0.3 mg/dL (0.6-1.3); TOTAL PROTEIN 6.2 g/dL (6.4-8.9)
== END 2022-12-29 23:59 | disposition home or self-care (01) ==
LOC: LAB.R 08:00
PROVIDERS: ATTEND Registered Nurse
DX: I95.9 Hypotension, unspecified (principal)
CPT/HCPCS: 80053; 85025

== ENCOUNTER 2023-01-02 08:00 | Outpatient (CLI) | payer MEDICARE, MEDICAID ==
[2023-01-02 19:48] LABS: BILIRUBIN,URINE NEGATIVE (NEGATIVE); GLUCOSE, URINE (UA) NEGATIVE (NEGATIVE); KETONES,URINE (UA) NEGATIVE (NEGATIVE); LEUKOCYTE ESTERASE, URINE TRACE (NEGATIVE); NITRITE,URINE NEGATIVE (NEGATIVE); OCCULT BLOOD,URINE NEGATIVE (NEGATIVE); PROTEIN,URINE NEGATIVE (NEGATIVE); UROBILINOGEN,URINE 0.2 (NORMAL) E.U./dL (NORMAL)
[2023-01-02 19:57] LABS: CLARITY,URINE SL. CLOUDY (CLEAR); RBC,URINE 0-5 /HPF (0-5)
[2023-01-02 19:58] LABS: BACTERIA,URINE Few /HPF (None Seen); SQUAMOUS EPITHELIAL CELL,UR FEW Squamous (<= Few)
== END 2023-01-02 23:59 | disposition home or self-care (01) ==
LOC: LAB.R 08:00
PROVIDERS: ATTEND Registered Nurse
DX: N39.0 Urinary tract infection, site not specified (principal)
CPT/HCPCS: 81001; 87086

== ENCOUNTER 2023-01-13 08:00 | Outpatient (CLI) | payer MEDICARE, MEDICAID ==
[2023-01-13 16:02] LABS: ALBUMIN 3.7 g/dL (3.2-5.5); BILIRUBIN,TOTAL 0.4 mg/dL (0.2-1.0); CALCIUM 9.6 mg/dL (8.5-10.3); CREATININE 0.4 mg/dL (0.6-1.3); POTASSIUM 4.2 mmol/L (3.5-4.5); TOTAL PROTEIN 7.4 g/dL (6.4-8.9)
== END 2023-01-13 23:59 | disposition home or self-care (01) ==
LOC: LAB.R 08:00
PROVIDERS: ATTEND Registered Nurse
DX: I10 Essential (primary) hypertension (principal)
CPT/HCPCS: 80053

== ENCOUNTER 2023-04-17 08:00 | Outpatient (CLI) | payer MEDICARE, MEDICAID ==
[2023-04-17 17:07] LABS: BASOPHILS % (AUTO) 0.5 %; EOSINOPHILS # (AUTO) 0.1 10^3/uL (0.0-0.7); EOSINOPHILS % (AUTO) 1.6 %; HCT - HEMATOCRIT 35.9 % (37.0-47.0); HGB - HEMOGLOBIN 10.9 g/dL (12.0-16.0); LYMPHOCYTES # (AUTO) 1.6 10^3/uL (1.5-3.5); LYMPHOCYTES % (AUTO) 21.3 %; MEAN CORPUSCULAR HEMOGLOBIN 27.1 pg (27.0-31.0); MEAN CORPUSCULAR HGB CONC 30.4 g/dL (32.0-36.0); MEAN CORPUSCULAR VOLUME 89.3 fL (81.0-99.0); MEAN PLATELET VOLUME 10.2 fL (7.9-10.8); MONOCYTES # (AUTO) 0.8 10^3/uL (0.0-1.0); MONOCYTES % (AUTO) 10.2 %; NEUTROPHILS # (AUTO) 4.9 10^3/uL (1.5-6.6); NEUTROPHILS % (AUTO) 66.1 %; PLT - PLATELET COUNT 265 10^3/uL (130-450); RED BLOOD COUNT 4.02 10^6/uL (4.20-5.40); RED CELL DISTRIBUTION WIDTH 14.2 % (12.0-15.0); WHITE BLOOD COUNT 7.3 x10^3/uL (4.8-10.8)
== END 2023-04-17 23:59 | disposition home or self-care (01) ==
LOC: LAB.R 08:00
PROVIDERS: ATTEND Registered Nurse
DX: I48.20 Chronic atrial fibrillation, unspecified (principal); I50.22 Chronic systolic (congestive) heart failure; D64.9 Anemia, unspecified
CPT/HCPCS: 80048; 85025

== ENCOUNTER 2023-07-16 15:10 | Outpatient (CLI) | payer MEDICARE, MEDICAID ==
[2023-07-16 15:26] LABS: BASOPHILS % (AUTO) 0.2 %; EOSINOPHILS % (AUTO) 0.4 %; HCT - HEMATOCRIT 41.7 % (37.0-47.0); HGB - HEMOGLOBIN 12.9 g/dL (12.0-16.0); LYMPHOCYTES # (AUTO) 1.5 10^3/uL (1.5-3.5); LYMPHOCYTES % (AUTO) 18.7 %; MEAN CORPUSCULAR HEMOGLOBIN 27.2 pg (27.0-31.0); MEAN CORPUSCULAR HGB CONC 30.9 g/dL (32.0-36.0); MEAN CORPUSCULAR VOLUME 87.8 fL (81.0-99.0); MEAN PLATELET VOLUME 10.4 fL (7.9-10.8); MONOCYTES # (AUTO) 0.7 10^3/uL (0.0-1.0); NEUTROPHILS % (AUTO) 72.6 %; PLT - PLATELET COUNT 288 10^3/uL (130-450); RED BLOOD COUNT 4.75 10^6/uL (4.20-5.40); RED CELL DISTRIBUTION WIDTH 14.7 % (12.0-15.0); WHITE BLOOD COUNT 8.2 x10^3/uL (4.8-10.8)
[2023-07-16 15:33] LABS: CALCIUM 9.9 mg/dL (8.5-10.3); CREATININE 0.6 mg/dL (0.6-1.3); POTASSIUM 5.7 mmol/L (3.5-4.5)
== END 2023-07-16 15:11 | disposition home or self-care (01) ==
LOC: LAB.R 15:10
PROVIDERS: ATTEND Registered Nurse
DX: I10 Essential (primary) hypertension (principal); D64.9 Anemia, unspecified; I48.20 Chronic atrial fibrillation, unspecified
CPT/HCPCS: 80048; 85025

== ENCOUNTER 2023-07-22 08:00 | Outpatient (CLI) | payer MEDICARE, MEDICAID ==
[2023-07-22 21:40] LABS: CALCIUM 9.3 mg/dL (8.5-10.3); CREATININE 0.5 mg/dL (0.6-1.3); POTASSIUM 5.4 mmol/L (3.5-4.5)
[2023-07-22 22:02] LABS: FERRITIN 137.9 ng/mL (11.0-306.8)
== END 2023-07-22 23:59 | disposition home or self-care (01) ==
LOC: LAB.R 08:00
PROVIDERS: ATTEND Registered Nurse
DX: I10 Essential (primary) hypertension (principal); D64.9 Anemia, unspecified
CPT/HCPCS: 80048; 82607; 82728; 82746

== ENCOUNTER 2023-08-18 08:00 | Outpatient (CLI) | payer MEDICARE, MEDICAID ==
[2023-08-18 03:07] LABS: ALBUMIN 3.5 g/dL (3.2-5.5); BILIRUBIN,TOTAL 0.3 mg/dL (0.2-1.0); CALCIUM 9.5 mg/dL (8.5-10.3); CREATININE 0.5 mg/dL (0.6-1.3); POTASSIUM 4.1 mmol/L (3.5-4.5); TOTAL PROTEIN 7.1 g/dL (6.4-8.9)
== END 2023-08-18 23:59 | disposition home or self-care (01) ==
LOC: LAB.R 08:00
PROVIDERS: ATTEND Registered Nurse
DX: F03.90 Unspecified dementia, unspecified severity, without behavioral disturbance, psychotic disturbance, mood disturbance, and anxiety (principal); I50.22 Chronic systolic (congestive) heart failure
CPT/HCPCS: 80053

== ENCOUNTER 2023-09-16 08:00 | Outpatient (CLI) | payer MEDICARE, MEDICAID ==
[2023-09-16 19:11] LABS: BASOPHILS % (AUTO) 0.4 %; EOSINOPHILS # (AUTO) 0.1 10^3/uL (0.0-0.7); EOSINOPHILS % (AUTO) 1.1 %; HCT - HEMATOCRIT 37.4 % (37.0-47.0); HGB - HEMOGLOBIN 11.5 g/dL (12.0-16.0); LYMPHOCYTES # (AUTO) 1.2 10^3/uL (1.5-3.5); LYMPHOCYTES % (AUTO) 17.2 %; MEAN CORPUSCULAR HEMOGLOBIN 28.4 pg (27.0-31.0); MEAN CORPUSCULAR HGB CONC 30.7 g/dL (32.0-36.0); MEAN CORPUSCULAR VOLUME 92.3 fL (81.0-99.0); MONOCYTES # (AUTO) 0.7 10^3/uL (0.0-1.0); MONOCYTES % (AUTO) 9.5 %; NEUTROPHILS # (AUTO) 5.1 10^3/uL (1.5-6.6); NEUTROPHILS % (AUTO) 71.7 %; PLT - PLATELET COUNT 332 10^3/uL (130-450); RED BLOOD COUNT 4.05 10^6/uL (4.20-5.40); RED CELL DISTRIBUTION WIDTH 13.5 % (12.0-15.0); WHITE BLOOD COUNT 7.2 x10^3/uL (4.8-10.8)
[2023-09-16 19:24] LABS: CALCIUM 9.9 mg/dL (8.5-10.3); CREATININE 0.4 mg/dL (0.6-1.3); POTASSIUM 4.2 mmol/L (3.5-4.5)
== END 2023-09-16 23:59 | disposition home or self-care (01) ==
LOC: LAB.R 08:00
DX: I50.22 Chronic systolic (congestive) heart failure (principal); D64.9 Anemia, unspecified
CPT/HCPCS: 80048; 85025

== ENCOUNTER 2023-09-30 16:41 | Outpatient (CLI) | payer MEDICARE, MEDICAID | END 2023-09-30 23:59 | disposition critical access hospital (66) | LOC: EMS 16:41 | DX: M79.89 Other specified soft tissue disorders (principal); R23.8 Other skin changes | CPT/HCPCS: A0425; A0429 ==

== ENCOUNTER 2023-09-30 16:50 | Emergency (ER) | payer MEDICARE, MEDICAID ==
--- NOTE | 2023-09-30 17:35 | ED Physician Documentation ---
PD HPI WOUND RECHECK - Stated complaint Stated Complaint: POST SURGICAL INFECTION - Chief complaint Chief Complaint: Wound - Histroy obtained from History obtained from: Patient - Additional information Additional information: She is a longstanding ostomy. There is a concern today that it is infected. She does not wear an ostomy device because she is worried that if she has a bag on her that the stool will back up into her body. 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 : Incontinence HEENT: None Psych: Schizophrenia Musculoskeletal: Other Derm: None - Past Surgical History Past Surgical History: Yes General: EGD Ortho: Other - Present Medications Home Medications: Ambulatory Orders Medication Instructions Recorded Confirmed risperiDONE [Risperdal] 0.5 mg PO DAILY PM 03/28/20 09/30/23 Acetaminophen [Tylenol Arthritis] 650 mg PO QID 09/23/20 09/30/23 Albuterol Sulf [Ventolin Hfa 2 puffs INH Q4HR PRN 09/23/20 09/30/23 Inhaler] Bisacodyl Supp [Dulcolax Supp] 10 mg [place] ONCE PRN 09/23/20 09/30/23 Diltiazem HCl [Diltiazem 12Hr ER] 120 mg PO BID 09/23/20 09/30/23 Ferrous Gluconate 240 mg PO DAILYWM 09/23/20 09/30/23 Furosemide [Lasix] 20 mg PO DAILY 09/23/20 09/30/23 Mag Hydrox/Aluminum Hyd/Simeth 30 ml PO BID 09/23/20 09/30/23 [Mag-Alum Hydroxide-Simeth Susp] Metoprolol Succinate [Toprol Xl] 2 tab PO DAILY 09/23/20 09/23/20 Mineral Oil [Mineral Oil Enema] 1 unit [place] ONCE PRN MDD once 09/23/20 09/30/23 Multivitamin W/Minerals [Theragran 1 tab PO DAILY PM 09/23/20 09/30/23 M] Senna [Senokot] 2 tab PO HS PRN 09/23/20 09/30/23 polyethylene glycoL 3350 17 gm PO ONCE PRN 09/23/20 09/30/23 [Polyethylene Glycol 3350] Ascorbic Acid [Vitamin C] 1 cap PO DAILY 09/30/23 09/30/23 Aspirin [Adult Aspirin Regimen] 1 tab PO DAILY 09/30/23 09/30/23 Cetirizine HCl [Allergy Relief] 1 tab PO DAILY 09/30/23 09/30/23 Fluticasone Propion/Salmeterol 1 inh INH PRN PRN 09/30/23 09/30/23 [Advair Hfa 45-21 Mcg Inhaler] [place]-3/Dha/Epa/Fish Oil [Fish Oil 1 cap PO DAILY 09/30/23 09/30/23 1,000 mg Softgel] Triamcinolone 0.1% Oint 1 applic TOP BID #80 gm 09/30/23 - Allergies Allergies/Adverse Reactions: Allergies Allergy/AdvReac Type Severity Reaction Status Date / Time penicillin G Allergy Intermediate Anaphylaxis Verified 09/30/23 17:03 strawberry [[place]] Allergy Intermediate Rash Verified 09/30/23 17:03 orange flavor Allergy Rash Verified 09/30/23 17:03 - Social History Does the pt smoke?: No Smoking Status: Never smoker Does the pt drink ETOH?: No Does the pt have substance abuse?: No - Immunizations Immunizations are current?: No Immunizations: TDAP >10years/unknown - POLST Patient has POLST: No PD ED PE NORMAL - Vitals Vital signs reviewed: Yes - General General: Alert and oriented X 3, No acute distress - Abdomen Abdomen: Normal bowel sounds, Soft, Non tender, Other (She has extensive surgical scars of her abdomen. While I am in the room she is pretty consistently pressing on her belly to express stool out of her ostomy. The ostomy itself looks okay but there is surrounding contact dermatitis of the abdominal wall.) - Neuro Neuro: Alert and oriented X 3 Results - Vitals Vitals: Vital Signs - 24 hr 09/30/23 16:56 Temperature 37.5 C Heart Rate 90 Respiratory 20 Rate Blood Pressure 120/70 O2 Saturation 100 Oxygen O2 Source Room air Oxygen Flow Rate 4 PD Medical Decision Making - ED course ED course: This looks like a contact dermatitis not a cellulitis. Will start some topical steroids. She is not wearing an ostomy device and does not want to. Departure - Departure Disposition: 01 Home, Self Care Clinical Impression: Contact dermatitis Qualifiers: Contact dermatitis type: unspecified Contact dermatitis trigger: unspecified trigger Qualified Code(s): L25.9 - Unspecified contact dermatitis, unspecified cause Condition: Good Record reviewed to determine appropriate education?: Yes Instructions: ED Dermatitis Contact Prescriptions: Triamcinolone 0.1% Oint 1 applic TOP BID #80 gm Comments: Does not look infected to me, it actually looks more like a contact dermatitis for which I am prescribing a topical steroid. Return if worse. She should follow-up with her Forms: PCP List
[2023-09-30 18:52] VITALS: BP 123/68; O2SAT 96
== END 2023-09-30 18:51 | disposition home or self-care (01) ==
LOC: EDUNIT# → ED 16:50
DX: L25.9 Unspecified contact dermatitis, unspecified cause (principal); Z93.3 Colostomy status; I11.0 Hypertensive heart disease with heart failure; I50.9 Heart failure, unspecified; I48.91 Unspecified atrial fibrillation; J45.909 Unspecified asthma, uncomplicated; Z86.010 Personal history of colon polyps; Z79.899 Other long term (current) drug therapy
CPT/HCPCS: 99283

== ENCOUNTER 2023-09-30 18:50 | Outpatient (CLI) | payer MEDICARE, MEDICAID | END 2023-09-30 23:59 | LOC: EMS 18:50 | PROVIDERS: ATTEND Emergency Medicine | DX: R41.0 Disorientation, unspecified (principal) | CPT/HCPCS: A0425; A0428 ==

== ENCOUNTER 2023-10-26 08:00 | Outpatient (CLI) | payer MEDICARE, MEDICAID ==
[2023-10-26 21:25] LABS: BASOPHILS % (AUTO) 0.6 %; EOSINOPHILS # (AUTO) 0.1 10^3/uL (0.0-0.7); EOSINOPHILS % (AUTO) 1.9 %; HCT - HEMATOCRIT 39.4 % (37.0-47.0); HGB - HEMOGLOBIN 11.8 g/dL (12.0-16.0); LYMPHOCYTES # (AUTO) 1.4 10^3/uL (1.5-3.5); LYMPHOCYTES % (AUTO) 22.6 %; MEAN CORPUSCULAR HEMOGLOBIN 27.9 pg (27.0-31.0); MEAN CORPUSCULAR HGB CONC 29.9 g/dL (32.0-36.0); MEAN CORPUSCULAR VOLUME 93.1 fL (81.0-99.0); MEAN PLATELET VOLUME 10.6 fL (7.9-10.8); MONOCYTES # (AUTO) 0.6 10^3/uL (0.0-1.0); MONOCYTES % (AUTO) 9.6 %; NEUTROPHILS # (AUTO) 4.1 10^3/uL (1.5-6.6); NEUTROPHILS % (AUTO) 65.1 %; PLT - PLATELET COUNT 275 10^3/uL (130-450); RED BLOOD COUNT 4.23 10^6/uL (4.20-5.40); RED CELL DISTRIBUTION WIDTH 13.6 % (12.0-15.0); WHITE BLOOD COUNT 6.2 x10^3/uL (4.8-10.8)
[2023-10-26 21:34] LABS: CALCIUM 9.3 mg/dL (8.5-10.3); CREATININE 0.6 mg/dL (0.6-1.3); POTASSIUM 3.8 mmol/L (3.5-4.5)
== END 2023-10-26 23:59 | disposition home or self-care (01) ==
LOC: LAB.R 08:00
PROVIDERS: ATTEND Family Medicine
DX: I50.22 Chronic systolic (congestive) heart failure (principal); D64.9 Anemia, unspecified
CPT/HCPCS: 80048; 85025

== ENCOUNTER 2023-11-03 08:00 | Outpatient (CLI) | payer MEDICARE, MEDICAID ==
[2023-11-03 16:08] LABS: CALCIUM 9.5 mg/dL (8.5-10.3); CREATININE 0.6 mg/dL (0.6-1.3); POTASSIUM 4.5 mmol/L (3.5-4.5)
== END 2023-11-03 23:59 | disposition home or self-care (01) ==
LOC: LAB.R 08:00
DX: I50.22 Chronic systolic (congestive) heart failure (principal)
CPT/HCPCS: 80048

== ENCOUNTER 2023-11-27 08:00 | Outpatient (CLI) | payer MEDICARE, MEDICAID ==
[2023-11-27 03:14] LABS: BASOPHILS % (AUTO) 0.5 %; EOSINOPHILS # (AUTO) 0.1 10^3/uL (0.0-0.7); EOSINOPHILS % (AUTO) 1.9 %; HCT - HEMATOCRIT 39.7 % (37.0-47.0); HGB - HEMOGLOBIN 11.9 g/dL (12.0-16.0); LYMPHOCYTES # (AUTO) 1.7 10^3/uL (1.5-3.5); LYMPHOCYTES % (AUTO) 26.6 %; MEAN CORPUSCULAR HEMOGLOBIN 27.8 pg (27.0-31.0); MEAN CORPUSCULAR VOLUME 92.8 fL (81.0-99.0); MONOCYTES # (AUTO) 0.6 10^3/uL (0.0-1.0); MONOCYTES % (AUTO) 9.2 %; NEUTROPHILS # (AUTO) 3.8 10^3/uL (1.5-6.6); NEUTROPHILS % (AUTO) 61.6 %; PLT - PLATELET COUNT 226 10^3/uL (130-450); RED BLOOD COUNT 4.28 10^6/uL (4.20-5.40); RED CELL DISTRIBUTION WIDTH 14.4 % (12.0-15.0); WHITE BLOOD COUNT 6.2 x10^3/uL (4.8-10.8)
[2023-11-27 03:52] LABS: FERRITIN 127.9 ng/mL (11.0-306.8)
== END 2023-11-27 23:59 | disposition home or self-care (01) ==
LOC: LAB.R 08:00
PROVIDERS: ATTEND Family Medicine
DX: D64.9 Anemia, unspecified (principal); M62.81 Muscle weakness (generalized)
CPT/HCPCS: 82607; 82728; 82746; 85025